=== PATIENT | female | born 1995 | race Caucasian/White ===

== ENCOUNTER 2023-07-31 19:42 | Outpatient (REF) | payer MEDICAID, SELFPAY ==
[2023-08-07 21:07] LABS: Age Gdln ACOG Testing Note (.); HPV Aptima Positive (Negative); HPV Genotype 16 Positive (Negative); HPV Genotype 18,45 Negative (Negative); IGP, Aptima HPV, rfx 16/18,45 Note (.)
== END 2023-07-31 19:43 | disposition home or self-care (01) ==
LOC: LAB 19:42
PROVIDERS: Visit Provider Obstetrics & Gynecology
DX: Z01.419 Encounter for gynecological examination (general) (routine) without abnormal findings (principal)
CPT/HCPCS: 87624; 87625; G0145

== ENCOUNTER 2024-08-05 22:20 | Outpatient (REF) | payer MEDICAID, SELFPAY ==
--- OUTSIDE RECORDS SUMMARY | 2024-08-05 22:24 | XMS_ITS | CCD ---
Author Organization [facility] Care Team Providers Care Barge Pilot Name Role Phone DR JIE BLANCO Attending Unavailable FRANCIS, DR CERON Consulting Unavailable FRANCIS, DR CERON Admitting Unavailable Pal BOATSWAIN'S MATE-TAILOR FITTER, Eh Primary Care Provider Pal BOATSWAIN'S MATE-TAILOR FITTER, Eh Primary Care Provider PAL, EH Referring Unavailable PAL, EH Primary Care Unavailable PAL, EH Referring Unavailable PAL, EH Primary Care Unavailable PAL, EH Referring Unavailable PAL, EH Primary Care Unavailable PAL, EH Attending Unavailable PAL, EH Referring Unavailable PAL, EH Primary Care Unavailable PAL, EH Attending Unavailable PAL, EH Referring Unavailable PAL, EH Primary Care Unavailable PAL, EH Attending Unavailable PAL, EH Referring Unavailable PAL, EH Primary Care Unavailable PAL, EH Attending Unavailable PAL, EH Referring Unavailable PAL, EH Primary Care Unavailable PAL, EH Attending Unavailable PAL, EH Referring Unavailable PAL, EH Primary Care Unavailable Allergies Allergy Classification Reported Allergen(s) Allergy Type Date of Onset Reaction(s) Facility (1 source) peanut allergenic extract Drug Allergy 10-07-2013 [facility] Repository Medications Current Medications Medication Drug Class(es) Dates Sig (Normalized) Sig (Original) citric acid 0.01 mg/mg / lactic acid 0.018 mg/mg / potassium bitartrate 0.004 mg/mg vaginal gel (2 sources) Calculi Dissolution Agent, Anti-coagulant Start: 06-18-2024 lactic rmgs-xguslw-mafaqbdf m (PHEXXI) 1.8-1-0.4 % gel Indications: Encounter for other contraceptive management Insert 1 Application into the vagina as needed (with intercourse). 5 g 3 06/18/2024 Active cyclobenzaprine hydrochloride 10 mg oral tablet (2 sources) Muscle Relaxant Start: 08-12-2023 take 1 tablet by mouth three times daily as needed for muscle spasms cyclobenzaprine (FLEXERIL) 10 mg tablet Take 1 tablet (10 mg total) by mouth 3 (three) times a day as needed for muscle spasms. 30 tablet 0 08/12/2023 Active HALOETTE 0.12-0.015 mg/24 hr vaginal ring (2 sources) Start: 04-05-2023 HALOETTE 0.12-0.015 mg/24 hr vaginal ring Insert 1 each into the vagina every 28 days. 0 04/05/2023 Active ibuprofen 600 mg oral tablet (4 sources) Nonsteroidal Anti-inflammatory Drug Start: 08-12-2023 take 1 tablet by mouth every six hours as needed for pain ibuprofen (MOTRIN) 600 mg tablet Take 1 tablet (600 mg total) by mouth every 6 (six) hours as needed for pain. 30 tablet 08/12/2023 Active ketotifen 0.25 mg/ml ophthalmic solution (4 sources) Histamine-1 Receptor Inhibitor Start: 05-18-2023 take 1 drop(s) into the eye(s) in the morning ALAWAY 0.025 % (0.035 %) ophthalmic solution Administer 1 drop to both eyes in the morning and 1 drop before bedtime. 05/18/2023 Active ammonium lactate 120 mg/ml topical lotion (1 source) Start: 07-31-2024 ammonium lactate (LAC-HYDRIN) 12 % lotion Apply 1 Application topically as needed for dry skin. 400 g 1 07/31/2024 Active nystatin [id number] unt/ml topical cream (1 source) Polyene Antifungal Start: 07-31-2024 End: 08-07-2024 nystatin (MYCOSTATIN) cream Apply 1 Application topically in the morning and 1 Application before bedtime. Do all this for 7 days. 60 g 1 07/31/2024 08/07/2024 Active sertraline 50 mg oral tablet (6 sources) Serotonin Reuptake Inhibitor Start: 06-12-2024 End: 07-31-2024 take 1 tablet by mouth in the morning sertraline (ZOLOFT) 50 mg tablet Indications: Persistent depressive disorder Take 1 tablet (50 mg total) by mouth in the morning. 90 tablet 1 07/31/2024 Active Start: 06-20-2023 End: 09-24-2023 take 1 tablet by mouth once daily in the morning sertraline (ZOLOFT) 50 mg tablet Indications: Persistent depressive disorder take 1 tablet by mouth every morning 30 tablet 2 09/24/2023 Active traZODone hydrochloride 50 mg oral tablet (5 sources) Serotonin Reuptake Inhibitor Start: 04-10-2024 End: 10-29-2024 take 2 tablets by mouth once daily traZODone (DESYREL) 50 mg tablet Indications: Insomnia, unspecified type Take 2 tablets (100 mg total) by mouth nightly for 90 days. 180 tablet 1 07/31/2024 10/29/2024 Active Start: 12-13-2023 take 1 tablet by patt th once daily traZODone (DESYREL) 50 mg tablet Take 1 tablet (50 mg total) by mouth nightly. 30 tablet 2 12/13/2023 Active Completed/Discontinued Medications Medication Drug Class(es) Dates Sig (Normalized) Sig (Original) fluticasone propionate 0.05 mg/actuat metered dose nasal spray (4 sources) Corticosteroid Start: 07-25-2023 End: 07-31-2024 take 2 spray(s) nasal route in the morning fluticasone propionate (FLONASE) 50 mcg/actuation nasal spray Administer 2 sprays into each nostril in the morning. 15.8 mL 07/25/2023 07/31/2024 Discontinued (Therapy completed) magnesium oxide 400 mg oral tablet (2 sources) Start: 05-01-2024 End: 07-31-2024 take 1 tablet by mouth in the morning magnesium oxide (MAGOX) 400 mg tablet Take 1 tablet (400 mg total) by mouth in the morning. 30 tablet 2 05/01/2024 07/31/2024 Discontinued (Therapy completed) triamcinolone acetonide 0.005 mg/mg topical ointment (2 sources) Corticosteroid Start: 05-01-2024 End: 07-31-2024 triamcinolone (KENALOG) 0.5 % ointment Apply 1 Application topically in the morning and 1 Application before bedtime. 30 g 1 05/01/2024 07/31/2024 Discontinued (Therapy completed) Problems Active Problems Problem Classification Problem Date Documented Date Episodic/Chronic Anxiety disorders (5 sources) Anxiety; Translations: [Anxiety disorder, unspecified] Onset: 06-20-2023 06-20-2023 Chronic Immunizations and screening for infectious disease (1 source) Encounter for screening for human papillomavirus (HPV); Translations: [ENC SCREENING HUMAN PAPILLOMAVIRUS] Onset: 04-12-2022 Episodic Malaise and fatigue (1 source) Other fatigue; Translations: [Other fatigue] Onset: 04-22-2024 Episodic Mood disorders (8 sources) Dysthymic disorder; Translations: [Dysthymic disorder] Onset: 06-20-2023 09-24-2023 Chronic Mycoses (1 source) Candidiasis of skin; Translations: [Candidiasis of skin and nail] 07-31-2024 Episodic Other non-traumatic joint disorders (1 source) Pain in unspecified joint; Translations: [Pain in unspecified joint] Onset: 04-22-2024 Episodic Other nutritional; endocrine; and metabolic disorders (2 sources) Body mass index (BMI) 33.0-33.9, adult; Translations: [Body mass index (BMI) 33.0-33.9, adult] Onset: 01-24-2024 Chronic Other nutritional; endocrine; and metabolic disorders (1 source) Obesity Onset: 01-24-2024 Chronic Other skin disorders (1 source) Other skin changes; Translations: [Other skin changes] Onset: 04-22-2024 Episodic Other skin disorders (1 source) Xeroderma; Translations: [Xerosis cutis] 07-31-2024 Episodic Residual codes; unclassified (1 source) Insomnia; Translations: [Insomnia, unspecified] 07-31-2024 Episodic Residual codes; unclassified (1 source) Insomnia, unspecified; Translations: [Insomnia, unspecified] Onset: 07-31-2024 Episodic Unclassified (1 source) Results Onset: 02-12-2024 Past or Other Problems Problem Classification Problem Date Documented Date Episodic/Chronic Contraceptive and procreative management (1 source) Encounter for initial prescription of contraceptives, unspecified; Translations: [Encounter for initial prescription of contraceptives, unspecified] Onset: 05-01-2024 Episodic Mood disorders (4 sources) Mood disorders Onset: 06-20-2023 Resolved: 05-01-2024 06-20-2023 Other aftercare (1 source) Other longterm (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 therapy; 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] Onset: 01-24-2024 Episodic Other nutritional; endocrine; and metabolic disorders (2 sources) Abnormal weight gain; Translations: [Abnormal weight gain] Onset: 01-24-2024 Episodic Other screening for suspected conditions (not mental disorders or infectious disease) (8 sources) Encounter for screening for malignant neoplasm of cervix; Translations: [Encounter for screening for lipoid disorders] Onset: 04-11-2022 Episodic Residual codes; unclassified (2 sources) Family history of diabetes mellitus; Translations: [Family history of diabetes mellitus] Onset: 01-24-2024 Episodic Residual codes; unclassified (2 sources) Family history of other diseases of the musculoskeletal system and connective tissue; Translations: [Family history of other diseases of the musculoskeletal system and connective tissue] Onset: 04-22-2024 Episodic Unclassified (1 source) Persistent depressive disorder 07-31-2024 Results Test Name Value Interpretation Reference Range Facil ity CRP [Mass/Vol]on 05-23-2024 C REACTIVE PROTEIN 0.4 mg/dL Normal 0.000-0.744 [facility] Comment on above: Performed By: #### 1 988-5 #### [facility] ([id number]) [address] [place] [address] CBC AND AUTO DIFFon 04-22-20 ABSOLUTE BASOPHIL 0.1 X10E9/L Normal 0.0-0.2 [facility] Comment on above: Performed By: #### C JANIE, 29817-7, 1988-01, 94622-4 #### [facility] ([id number]) [address] [place] [address] ABSOLUTE NEUTROPHIL 3.8 X10E9/L Normal 1.5-6.6 [facility] Comment on above: Performed By: #### C JANIE, 61311-1, 1990-01, #### [facility] ([id number]) [address], [address] [place] [address] Basophils/100 WBC (Bld) 0.7 % Normal [facility] Comment on above: Performed By: #### Rajesh LIMA, 77657-6, 1990-01, #### [facility] ([id number]) [address], [facility] [address] [facility] [address] [place] [address] Eosinophils (Bld) [#/Vol] 0.3 10*3/uL Normal 0.0-0.4 [facility] Comment on above: Performed By: #### Rajesh LIMA, , 1990-01, #### [facility] ([id number]) [address], [facility] [address] [place] [address] Eosinophils/100 WBC (Bld) 4.1 % Normal [facility] Comment on above: Performed By: #### Rajesh LIMA, , 1990-01, #### [facility] ([id number]) [address], [facility] [address] [place] [address] Erythrocyte distribution width (RBC) [Ratio] 13.2 % Normal 11.5-15.0 [facility] Comment on above: Performed By: #### Rajesh LIMA, , 1990-01, #### [facility] ([id number]) [address], [facility] [address] [place] [address] Hematocrit (Bld) [Volume fraction] 39.5 % Normal 35-47 [facility] Comment on above: Performed By: #### Rajesh LIMA, , 1990-01, #### [facility] ([id number]) [address], [facility] [address] [place] [address] Hemoglobin (Bld) [Mass/Vol] 13.6 g/dL Normal 11.7-15.5 [facility] Comment on above: Performed By: #### Rajesh LIMA, 78700-7, 1990-01, 17488-5 #### [facility] ([id number]) [address], [address] [place] [address] Lymphocytes (Bld) [#/Vol] 2.6 10*3/uL Normal 1.0-3.5 [facility] Comment on above: Performed By: #### Rajesh LIMA, 21813-7, 1990-01, #### [facility] ([id number]) [address], [facility] [address] [place] [address] Lymphocytes/100 WBC (Bld) 37.5 % Normal [facility] Comment on above: Performed By: #### Rajesh LIMA, 13572-7, 1988-01, #### [facility] ([id number]) [address], [address] [place] [address] MCH (RBC) [Entitic mass] 29.2 pg Normal 27-34 [facility] Comment on above: Performed By: #### Rajesh LIMA, 40351-9, 1988-01, #### [facility] ([id number]) [address], [address] [place] [address] MCHC (RBC) [Mass/Vol] 34.3 g/dL Normal 32-36 [facility] Comment on above: Performed By: #### Rajesh LIMA, 57529-8, 1988-01, #### [facility] ([id number]) [address], [facility] [address] [place] [address] MCV (RBC) [Entitic vol] 85 fL Normal 80-100 [facility] Comment on above: Performed By: #### Rajesh LIMA, 03878-2, 1988-01, #### [facility] ([id number]) [address], [address] [place] [address] Monocytes (Bld) [#/Vol] 0.3 10*3/uL Normal 0-0.9 [facility] Comment on above: Performed By: #### Rajesh LIMA, 34189-0, 1988-01, #### [facility] ([id number]) [address], [facility] [address] [place] [address] Monocytes/100 WBC (Bld) 3.9 % Normal [facility] Comment on above: Performed By: #### Rajesh LIMA, 07084-8, 1988-01, #### [facility] ([id number]) [address], [facility] [address] [place] [address] Neutrophils/100 WBC (Bld) 53.8 % Normal [facility] Comment on above: Performed By: #### Rajesh LIMA, , 1990-01, #### [facility] ([id number]) [address], [facility] [address] [place] [address] Platelet mean volume (Bld) [Entitic vol] 8.5 fL Normal 7-12 [facility] Comment on above: Performed By: #### Rajesh LIMA, 31443-5, 1988-01, #### [facility] ([id number]) [address], [facility] [address] [place] [address] Platelets (Bld) [#/Vol] 284 10*3/uL Normal 150-450 [facility] Comment on above: Performed By: #### Rajesh LIMA, 98474-9, 1988-01, #### [facility] ([id number]) [address], [facility] [address] [place] [address] RBC COUNT 4.65 X10E12/L Normal 3.80-5.20 [facility] Comment on above: Performed By: #### Rajesh LIMA, 46525-7, 1988-01, #### [facility] ([id number]) [address], [address] [place] [address] WBC (Bld) [#/Vol] 7.0 10*3/uL Normal 4.0-11.0 [facility] Comment on above: Performed By: #### Rajesh LIMA, 77624-5, 1988-01, 60511-8 #### [facility] ([id number]) [address], [address] [place] [address] CRP [Mass/Vol]on 04-22-2024 C REACTIVE PROTEIN 2.8 mg/dL High 0.000-0.744 [facility] Comment on above: Performed By: #### Rajesh LIMA, 05077-5, 1988-01, 67966-6 #### [facility] ([id number]) [address], [facility] [address] [place] [address] ESR Photometric method (Bld) [Velocity]on 04-22-2024 ESR, ERYTHROCYTE SEDIMENTATION RATE 9 mm/h Normal 0-20 [facility] Comment on above: Performed By: #### Rajesh LIMA, 19116-9, 1988-01, 67815-8 #### [facility] ([id number]) [address] [address] Nuclear Ab IA Ql (S)on 04-22 RANJIT Screen w/reflex Negative Normal NEG [facility] Comment on above: Result Comment: Testing performed using multiplex flow immunoassay. Eleven different antigens associated with systemic autoimmune diseases (dsDNA,Sm,Sm/FENCE INSTALLER FOREMAN,FENCE INSTALLER FOREMAN,Chromatin, SSA,SSB,Stephanie-1,Scl70,Ribo P,Centromere B) are included in this screening test. Performed By: #### Rajesh LIMA, 77139-1, 1988-01, 10333-5 #### [facility] ([id number]) [address], [address] [place] [address] HGB A1C (GLYCO-HGB)on 2023 Glucose [Mass/Vol] 94 mg/dL Normal [facility] Comment on above: Performed By: #### H A1C, 06839-2, TSHR #### [facility] ([id number]) [address], [address] [address] HbA1c (Bld) [Mass fraction] 4.9 % Normal 4.4-5.6 [facility] Comment on above: Result Comment: NOTE ADA Guidelines Result HgbA1c Normal : less than 5.7 % Prediabetes : 5.7 % to 6.4 % Diabetes : > 6.4 % Use with caution in patients with abnormal hemoglobin variants as the half-life of red blood cells and in vivo glycation rates are affected. Performed By: #### Michael A1C, 76857-0, TSHR #### [facility] ([id number]) [address] [facility] [address] [place] [address] Lipid 1996 panelon 4 Cholesterol [Mass/Vol] 141 mg/dL Low 150-200 [facility] Comment on above: Performed By: #### Michael A1C, 95618-1, TSHR #### [facility] ([id number]) [address], [facility] [address] [place] [address] Cholesterol in HDL [Mass/Vol] 57 mg/dL Normal >39 [facility] Comment on above: Result Comment: HDL <40 mg/dL - High Risk HDL > or = 40mg/dL- Desirable HDL >60 mg/dL - Negative Risk Performed By: #### H A1C, 37402-4, TSHR #### [facility] ([id number]) [address], [address] [place] [address] Cholesterol in LDL [Mass/Vol] 60 mg/dL Normal <130 [facility] Comment on above: Result Comment: LDL <100 mg/dL - Desirable LDL >160 mg/dL - High Risk Performed By: #### H A1C, 36074-6, TSHR #### [facility] ([id number]) [address], [address] [address] Cholesterol in VLDL [Mass/Vol] 24 mg/dL Normal 0-30 [facility] Comment on above: Performed By: #### H A1C, 80417-8, TSHR #### [facility] ([id number]) [address], [facility] [address] [place] [address] CHOLESTEROL:HDL 2.5 Normal 1.0-5.0 [facility] Comment on above: Performed By: #### H A1C, 65466-6, TSHR #### [facility] ([id number]) [address], [address] [address] Triglyceride [Mass/Vol] 122 mg/dL Normal 27-150 [facility] Comment on above: Performed By: #### H A1C, 92452-1, TSHR #### [facility] ([id number]) [address], [address] [address] TSH WITH REFLEXon 01-24-2024 TSH 1.20 uIU/mL Normal 0.49-4.67 [facility] Comment on above: Performed By: #### H A1C, 59385-9, TSHR #### [facility] ([id number]) [address] [place] [address] PAP ACOG PANEL 2: 21 to 29on 04-14-2022 . . Normal [facility] Comment on above: Performed By: #### 4 [id number] #### [facility] [address] [place] [address] Dr. Vish Mohr Age Gdln ACOG Testing 21-29 Normal [facility] Comment on above: Performed By: #### 4 [id number] #### [facility] [address] [place] [address] Dr. Vish Mohr DIAGNOSIS: Comment Normal [facility] Comment on above: Result Comment: NEGA TIVE FOR INTRAEPITHELIAL LESION OR MALIGNANCY. Performed By: #### 4 [id number] #### [facility] [address] [place] [address] Dr. Vish Mohr Methodology: Comment Normal [facility] Comment on above: Result Comment: This liquid based ThinPrep(R) pap test was screened with the use of an image guided system. Performed By: #### 4 [id number] #### [facility] [address] [place] [address] Dr. Vish Mohr Note: Comment [facility] Comment on above: Result Comment: The Pap smear is a screening test designed to aid in the detection of premalignant and malignant conditions of the uterine cervix. It is not a diagnostic procedure and should not be used as the sole means of detecting cervical cancer. Both false-positive and false-negative reports do occur. . Performed By: #### 4 [id number] #### [facility] [address] [place] [address] Dr. Vish Mohr Performed by: Comment Normal [facility] Comment on above: Result Comment: Valentin Negron, Machine Tool Mechanic (ASCP) Performed By: #### 4 [id number] #### [facility] [address] [place] [address] Dr. Vish Mohr Reflex Criteria: Comment Normal [facility] Comment on above: Result Comment: The HPV DNA reflex criteria were not met with this specimen result therefore, no HPV testing was performed. . Performed By: #### 4 [id number] #### [facility] [address] [place] [address] Dr. Vish Mohr Specimen adequacy: Comment Normal [facility] Comment on above: Result Comment: Sati sfactory for evaluation. Endocervical and/or squamous metaplastic cells (endocervical component) are present. Performed By: #### 4 [id number] #### [facility] [address] [place] [address] Dr. Vish Mohr Vital Signs Date Time Vital Sign Value Performing Clinician Nancie kern 07-31-2024 10:37-0500 Body mass index (BMI) [Ratio] 35 kg/m2 Eh Lanejas [employer]ATSWAIN'S MATE-TAILOR FITTER Work Phone: [facility] 07-31-2024 10:37-0500 Body temperature 97.9 [degF] Eh Pal [employer]ATSWAIN'S MATE-TAILOR FITTER Work Phone: [facility] 07-31-2024 10:37-0500 Body weight 73.39 kg Ehjuan carlos Pal [employer]WA[employer] MATE-TAILOR FITTER Work Phone: [facility] 07-31-2024 10:37-0500 Diastolic blood pressure 64 mm[Hg] Eh Pal [employer]WAIN[employer] MATE-TAILOR FITTER Work Phone: [facility] 07-31-2024 10:37-0500 Heart rate 75 /min Eh Pal [employer]WAIN[employer] MATE-TAILOR FITTER Work Phone: [facility] 07-31-2024 10:37-0500 SaO2% (BldA) [Mass fraction] 97 % Eh Pal [employer]WAIN[employer]S MATE-TAILOR FITTER Work Phone: [facility] 07-31-2024 10:37-0500 Systolic blood pressure 116 mm[Hg] Eh Pal [employer]ATSWAIN[employer] MATE-TAILOR FITTER Work Phone: [facility] Encounters Encounter Date Encounter Type Care Provider Facility Start: 07-31-2024 End: 07-31-2024 Office outpatient visit 15 minutes Eh Pal BOATSWAIN'[employer] MATE-TAILOR FITTER Work Phone: [facility] Comment on above: Insomnia, unspecifie d type (Primary Dx); Persistent depressive disorder; Dry skin; Skin candidiasis Start: 07-31-2024 End: 07-31-2024 ambulatory [facility] Start: 07-25-2024 End: 07-27-2024 Refill Eh Pal [employer]WAIN[employer] MATE-TAILOR FITTER Work Phone: [facility] Start: 05-23-2024 End: 05-23-[address] [facility] Start: 05-01-2024 End: 05-01-2024 ambulatory [facility] Start: 04-22-2024 End: 04-22-[address] [facility] Start: 04-07-2024 End: 04-07-2024 ambulatory [facility] Start: 02-12-2024 End: 02-12-2024 ambulatory [facility] Start: 01-24-2024 End: 01-25-2024 ambulatory [facility] Start: 01-24-2024 End: 01-24-2024 ambulatory [facility] Start: 12-13-2023 Orders Only Eh elizabeth [employer]WA[employer] MATE-TAILOR FITTER Work Phone: [facility] Start: 09-24-2023 Refill Eh elizabeth [employer]WA[employer] MATE-TAILOR FITTER Work Phone: [facility] Comment on above: Persistent depressiv e disorder Start: 04-11-2022 End: 04-11-[address] JIE BLANCO Facility: Procedures Date Procedure Procedure Detail Performing Clinician Start: 05-01-2024 Adult depression scr eening assessment Eh Pal [employer]ATE-TAILOR [employer]TER Work Phone: Start: 01-24-2024 Follow-up visit Follow-up NESTOR PAL Start: 07-31-2023 Microscopic observat ion [Identifier] in Cervix by Cyto stain Eh Pal [employer]WA[employer] MATE-TAILOR [employer]TER Work Phone: Start: 06-20-2023 Adult depression scr eening assessment Eh Pal [employer] MATE-TAILOR FITTER Work Phone: Plan of Treatment Date Care Activity Detail Author Start: 01-01-2029 DTaP,Tdap and Td Vaccines (2 - Td or Tdap) DTaP,Tdap and Td Vaccines (2 - Td or Tdap) [facility] Start: 07-31-2026 Screening for malign ant neoplasm of cervix Pap Smear [facility] Start: 07-31-2025 Adult BMI Screening Adult BMI Screen ing [facility] Start: 07-31-2025 Tobacco Screening Tobacco Screening [facility] Start: 05-10-2025 Tobacco Screening Tobacco Screening [facility] Start: 05-01-2025 Adult BMI Screening Adult BMI Screen ing [facility] Start: 05-01-2025 Depression Screening Depression Scre ening [facility] Start: 10-09-2024 End: 10-09-2024 Patient encounter procedure [facility] Start: 08-12-2024 Adult BMI Screening Adult BMI Screen ing [facility] Start: 08-12-2024 Tobacco Screening Tobacco Screening [facility] Start: 07-31-2024 End: 07-31-2024 Patient encounter procedure 07/31/2024 10:40 AM EST Office Visit [facility] [address] [place] [id number] Eh Pal APRN-SHERRON [address] [place] [id number] [facility] Start: 06-20-2024 Depression Screening Depression Scre ening [facility] Start: 05-25-2024 Influenza vaccination Influenza Vacc ine [facility] Start: 01-24-2024 End: 01-24-2024 Patient encounter procedure [facility] Start: 05-25-2023 Influenza vaccination Influenza Vacc [facility] Start: 2014 Screening for malign ant neoplasm of cervix Pap Smear [facility] Start: 2011 Adult BMI Follow Up Plan Adult BMI Follow Up Plan [facility] Immunizations Immunization Date Immunization Notes Care Provider Fa cilimaria isabel 01-01-2019 tetanus toxoid, redu ernesto diphtheria toxoid, and acellular pertussis vaccine, adsorbed Eh Pal [employer] Work Phone: [facility] Payers Date Payer Category Payer Medicaid [id number] 2022 Medicaid [id number] 1993 Unknown [id number] 2.16.84 [id number] 1993 Unknown [id number] 2.16.8 [id number] 1993 Unknown [id number] 2.16.8 [id number] 1993 Unknown [id number] 2.16.8 [id number] 1993 Unknown [id number] 2.16.8 [id number] 1993 Unknown [id number] 2.16.8 [id number] 1993 Unknown [id number] 2.16.8 [id number] 1993 Unknown [id number] 2.16.8 [id number] 1993 Unknown [id number] 2.16.8 [id number] 1959 Unknown [id number] Social History Date Type Detail Facility Start: 06-20-2023 Tobacco smoking stat [facility] Never smoked tobacco [facility] Start: 06-20-2023 Tobacco use and exposure Smokeless tobacco non-user [facility] Start: 08-12-2023 End: 07-31-2024 Alcohol intake Current non-drinker of alcohol (finding) [facility] Start: 11-04-2020 End: 08-12-2023 History of Social function [facility] Start: 11-04-2020 End: 08-12-2023 Tobacco use panel [facility] Adolescent depressio n screening assessment 16 [facility] Start: 1995 Sex Assigned At Not on file [facility] Start: 04-29-2015 Sex Female (finding) [facility] History of Present illness Narrative 07-31-2024 Eh Pal, [employer] - 07/31/2024 10:40 AM EST Note Date & Type Note Facility 07-31-2024 History of Present illness Narrative Subjective Patient ID: Rani Noe is a 29 y.o. female. HPI Rani presents to the office for follow up on anxiety and sleep. She is on 100 mg Trazodone for sleep. States the regimen is really helping her to sleep. She does not have any difficulties falling back to sleep when she wakes up. Also, her anxiety and depression is controlled. States she is doing well on Zoloft. She denies any current suicidal ideation and any current symptoms of depression. She was having headaches at last visit, but reports she is no longer having them, she does not need refill on magnesium. Additionally, she has some concerns with skin dryness and itchiness of the palmar surfaces of both hands and feet. She also reports having dark spots the on the right leg and foot. States she tried over the counter felicity lotion and scrub and that has brought some relief. However she continues to have the itchiness. Dryness is improving. Also mentioned that she felt dizzy last Sunday while standing and while exerting herself over the weekend. She reports she got occasional palpitations with exertion. She denies any chest pain, headaches, or shortness of breath. She admits that her dog and she has not been drinking as much. The following portions of the patient's history were reviewed and updated as appropriate: allergies, current medications, past medical history, past social history, past surgical history, problem list, and medication reconciliation was completed including current medication and post discharge medication. Review of Systems Constitutional: Negative for activity change and appetite change. Eyes: Negative. Respiratory: Negative. Negative for shortness of breath and wheezing. Cardiovascular: Positive for palpitations. Negative for chest pain and leg swelling. Endocrine: Negative. Skin: Dry and itchy skin Neurological: Positive for dizziness. Negative for light-headedness and headaches. Psychiatric/Behavioral: Negative. Objective Physical Exam Constitutional: Appearance: Normal appearance. HENT: Right Ear: External ear normal. Left Ear: External ear normal. Eyes: Conjunctiva/sclera: Conjunctivae normal. Cardiovascular: Rate and Rhythm: Normal rate and regular rhythm. Pulses: Normal pulses. Pulmonary: Effort: Pulmonary effort is normal. Musculoskeletal: General: Normal range of motion. Cervical back: Normal range of motion. Skin: Findings: Rash present. Comments: Dry skin to bilateral palmar hands. Dry skin and redness to bilateral feet. Redness to top of right foot. 2 areas of darkened skin to right lower anterior leg. Neurological: Mental Status: She is alert and oriented to person, place, and time. Psychiatric: Mood and Affect: Mood normal. Behavior: Behavior normal. Assessment/Plan Rani was seen here for sleep/ headaches. She is no longer having headache. Her sleep is better with current regimen of trazodone 100 mg. She is also on Zoloft for depression and is well controlled. Additionally, she has issues with itchiness, dryness and dark spots on the right leg. Mentioned she felt dizzy and had palpitations over the weekend Continue to monitor for symptoms of dizziness and palpitations and call the office if symptoms persist Keep hydrated all the times Refilled trazodone 50 mg; take 2 tablets by mouth nightly for 90 days Refilled Zoloft 50 mg; take 1 tablet by mouth in the morning Ammonium lactate 12% lotion; apply 1 application topically needed for dry skin. Also sent in nystatin for possible fungal skin infection to feet. Follow up in this office as needed. Ensure to keep skin clean and dry. Rani was seen today for follow-up. Diagnoses and all orders for this visit: Insomnia, unspecified type - traZODone (DESYREL) 50 mg tablet; Take 2 tablets (100 mg total) by mouth nightly for 90 days. Persistent depressive disorder - sertraline (ZOLOFT) 50 mg tablet; Take 1 tablet (50 mg total) by mouth in the morning. Dry skin Skin candidiasis Other orders - ammonium lactate (LAC-HYDRIN) 12 % lotion; Apply 1 Application topically as needed for dry skin. - nystatin (MYCOSTATIN) cream; Apply 1 Application topically in the morning and 1 Application before bedtime. Do all this for 7 days. Eh Pal APRN-TAILOR [employer]TER 07/31/24 [id number] documented in this encounter [facility] Evaluation note Note Date & Type Note Facility Evaluation note Diagnosis Persistent depressive disorder documented in this encounter [facility] Evaluation note Note Date & Type Note Facility Evaluation note Diagnosis Insomnia, unspecified type- Primary Persistent depressive disorder Dry skin Other symptoms involving skin and integumentary tissues Skin candidiasis Candidiasis of skin and nails documented in this encounter [facility] Instructions Note Date & Type Note Facility Instructions Not on filedocumented in this en counter [facility] Instructions Note Date & Type Note Facility Instructions Not on filedocumented in this en counter [facility] Instructions Note Date & Type Note Facility Instructions Not on filedocumented in this en counter [facility] Instructions Note Date & Type Note Facility Instructions Not on filedocumented in this en counter [facility] Summary Purpose Family History No Family History Records FoundNo Family History Records FoundNo Family History Records FoundNo Family History Records Found Advance Directives No Advanced Directives Records FoundNo Advanced Directives Records FoundNo Advanced Directives Records FoundNo Advanced Directives Records Found Additional Source Comments INFORMATION SOURCE (unrecogn ized section and content) DATE CREATED AUTHOR 04/14/2022 [facility] DATE CREATED AUTHOR AUTHOR'S ORGANIZ ATION 01/26/2024 [facility] DATE CREATED AUTHOR AUTHOR'S ORGANIZ ATION 05/24/2024 [facility] DATE CREATED AUTHOR AUTHOR'S ORGANIZ ATION 08/02/2024 [facility] Reason for Visit (unrecogniz ed section and content) Reason Comments Med Refill Reason Comments Follow-up Headaches and sleep Care Teams (unrecognized sec tion and content) [employer] Relationship Specialty Start Date End Date Eh Pal APRN-CNP [address] [place] [address] PCP - General Nurse Practitioner 06/20/23 [employer] Relationship Specialty Start Date End Date Eh Pal APRN-CNP PCP - General Nurse Practitioner 06/20/23 [employer] Relationship Specialty Start Date End Date Eh Pal APRN-SHERRON PCP - General Nurse Practitioner 06/20/23 [employer] Relationship Specialty Start Date End Date Eh Pal APRNJAMIE PCP - General Nurse Practitioner 06/20/23 FOR RECORDS PERTAINING TO PATIENTS WHO ARE OR HAVE BEEN ENROLLED IN A CHEMICAL DEPENDENCY/SUBSTANCEABUSE PROGRAM, SOME INFORMATION MAY BE OMITTED. This clinical summary was aggregated from multiple sources. Caution should be exercised in using it in the provision of clinical care. This summary normalizes information from multiple sources, and as a consequence, information in this document may materially change the coding, format and clinical context of patient data. In addition, data may be omitted in some cases. CLINICAL DECISIONS SHOULD BE BASED ON THE PRIMARY CLINICAL RECORDS. [facility]. provides no warranty or guarantee of the accuracy or completeness of information in this document.
== END 2024-08-05 22:21 | disposition home or self-care (01) ==
LOC: LAB 22:20
PROVIDERS: Visit Provider Obstetrics & Gynecology
DX: Z01.419 Encounter for gynecological examination (general) (routine) without abnormal findings (principal)
CPT/HCPCS: 87624; 88175

== ENCOUNTER 2024-09-11 08:04 | Outpatient (REF) | payer MEDICAID, SELFPAY ==
--- OUTSIDE RECORDS SUMMARY | 2024-09-18 08:10 | XMS_ITS | CCD ---
Author Organization [facility] Care Team Providers Care Clerk Secretary Name Role Phone DR JIE BATRES Attending Unavailable GISEL, DR CERON Consulting Unavailable GISEL, DR CERON Admitting Unavailable Waterman RADIAL ROUTER OPERATOR-BALE OPENER, Eh Primary Care Provider Waterman RADIAL ROUTER OPERATOR-BALE OPENER, Eh Primary Care Provider WATERMAN, EH Referring Unavailable WATERMAN, EH Primary Care Unavailable WATERMAN, EH Referring Unavailable WATERMAN, EH Primary Care Unavailable WATERMAN, EH Referring Unavailable WATERMAN, EH Primary Care Unavailable WATERMAN, EH Attending Unavailable WATERMAN, EH Referring Unavailable WATERMAN, EH Primary Care Unavailable WATERMAN, EH Attending Unavailable WATERMAN, EH Referring Unavailable WATERMAN, EH Primary Care Unavailable WATERMAN, EH Attending Unavailable WATERMAN, EH Referring Unavailable WATERMAN, EH Primary Care Unavailable WATERMAN, EH Attending Unavailable WATERMAN, EH Referring Unavailable WATERMAN, EH Primary Care Unavailable WATERMAN, EH Attending Unavailable WATERMAN, EH Referring Unavailable WATERMAN, EH Primary Care Unavailable Waterman Eh AMOR Primary Care Provider JIE BATRES Attending Unavailable JIE BATRES Attending Unavailable Allergies Allergy Classification Reported Allergen(s) Allergy Type Date of Onset Reaction(s) Facility (1 source) peanut allergenic extract Drug Allergy 10-07-2013 [facility] Medications Current Medications Medication Drug Class(es) Dates Sig (Normalized) Sig (Original) citric acid 0.01 mg/mg / lactic acid 0.018 mg/mg / potassium bitartrate 0.004 mg/mg vaginal gel (3 sources) Calculi Dissolution Agent, Anti-coagulant Start: 06-18-2024 lactic kujh-tzvmhf-nstxnvsr m (PHEXXI) 1.8-1-0.4 % gel Indications: Encounter [...] 04/05/2023 Active ibuprofen 600 mg oral tablet (5 sources) Nonsteroidal Anti-inflammatory Drug Start: 08-12-2023 take 1 tablet by mouth every six hours as needed for pain ibuprofen (MOTRIN) 600 mg tablet Take 1 tablet (600 mg total) by mouth every 6 (six) hours as needed for pain. 30 tablet 08/12/2023 Active ketotifen 0.25 mg/ml ophthalmic solution (5 sources) Histamine-1 Receptor Inhibitor Start: 05-18-2023 take 1 drop(s) into the eye(s) in the morning ALAWAY 0.025 % (0.035 %) ophthalmic solution Administer 1 drop to both eyes in the morning and 1 drop before bedtime. 05/18/2023 Active ammonium lactate 120 mg/ml topical lotion (2 sources) Start: 07-31-2024 ammonium lactate (LAC-HYDRIN) 12 % lotion Apply 1 Application topically as needed for dry skin. 400 g 1 07/31/2024 Active nystatin 100 unt/mg topical powder (5 sources) Polyene Antifungal Start: 08-05-2024 End: 08-05-2025 nystatin (Mycostatin) 373435 UNIT/GM powder Indications: Skin yeast infection Apply topically 3 (three) times a day 15 g 08/05/2024 08/05/2025 Active Start: 07-31-2024 End: 08-07-2024 nystatin (MYCOSTATIN) cream Apply 1 Application topically in the morning and 1 Application before bedtime. Do all this for 7 days. 60 g 1 07/31/2024 08/07/2024 Active sertraline 50 mg oral tablet (13 sources) Serotonin Reuptake Inhibitor Start: 09-02-2024 take 1 tablet by mouth once daily in the morning sertraline (ZOLOFT) 50 mg tablet Indications: Persistent depressive disorder TAKE 1 TABLET BY MOUTH EVERY MORNING 30 tablet 5 09/02/2024 Active Start: 06-20-2023 End: 09-02-2024 take 1 tablet by mouth in the morning sertraline (Zoloft) 50 MG tablet Take 50 mg by mouth in the morning. 06/20/2023 Active traZODone hydrochloride 50 mg oral tablet (7 sources) Serotonin Reuptake Inhibitor Start: 04-10-2024 End: 10-29-2024 take 2 tablets by mouth at bedtime traZODone (Desyrel) 50 MG tablet Take 100 mg by mouth at bedtime 08/27/2024 Active Start: 12-13-2023 take 1 tablet by patt th once daily traZODone (DESYREL) 50 mg tablet Take 1 tablet (50 mg total) by mouth nightly. 30 tablet 2 12/13/2023 Active Completed/Discontinued Medications Medication Drug Class(es) Dates Sig (Normalized) Sig (Original) etonogestrel-ethinyl estradiol (EnilloRing) 0.12-0.015 MG/24HR vaginal ring (3 sources) Start: 03-24-2024 End: 08-05-2024 etonogestrel-ethiny l estradiol (EnilloRing) 0.12-0.015 MG/24HR vaginal ring Indications: control counseling insert 1 ring vaginally for 3 weeks REMOVE for 1 week and repeat 1 each 3 03/24/2024 08/05/2024 Discontinued fluticasone propionate 0.05 mg/actuat metered dose nasal [...] Problem Date Documented Date Episodic/Chronic Anxiety disorders (6 sources) Anxiety; Translations: [Anxiety disorder, unspecified] Onset: 06-20-2023 06-20-2023 Chronic Cancer of cervix (1 source) Cervical intraepithelial neoplasia grade 1; Translations: [Low grade squamous intraepithelial lesion on cytologic smear of cervix (LGSIL)] 09-11-2024 Episodic Immunizations and screening for infectious disease (1 source) Encounter for screening for human papillomavirus (HPV); Translations: [ENC SCREENING HUMAN PAPILLOMAVIRUS] Onset: 04-12-2022 Episodic Malaise and fatigue (1 source) Other fatigue; Translations: [Other fatigue] Onset: 04-22-2024 Episodic Mood disorders (10 sources) Dysthymic disorder; Translations: [Dysthymic disorder] Onset: 06-20-2023 09-24-2023 Chronic Mycoses (3 sources) Candidiasis of skin; Translations: [Candidiasis of skin [...] contraceptives, unspecified] Onset: 05-01-2024 Episodic Mood disorders (5 sources) Mood disorders Onset: 06-20-2023 Resolved: 05-01-2024 06-20-2023 Other aftercare (1 source) Other 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 worker (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 therapy; Translations: [Other terminal worker (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 therapy] Onset: 01-24-2024 Episodic Other [...] and connective tissue] Onset: 04-22-2024 Episodic Unclassified (2 sources) Persistent depressive disorder 07-31-2024 Results Test Name Value Interpretation Reference Range Facility Colposcopyon 09-11-2024 Мария Carrera LPN 09/14/2024 11:37 AM Colposcopy Date/Time: 09/11/2024 3:39 PM Performed by: Jie Batres DO Authorized by: Jie Batres DO Procedure location: cervix Consent: Patient questions answered: yes Risks and benefits of the procedure and its alternatives discussed: yes Consent obtained: Written Consent given by: Patient Indication: Cervical indication(s): high-risk HPV positive and cervical LSIL Pre-procedure: Speculum was placed in the vagina: yes Prep solution(s): acetic acid Procedure: Colposcopy with: colposcopy only and endocervical curettage Cervix visibility: fully visualized Cervical impression: normal/benign Ferric subsulfate solution applied: no Tampon inserted: no Post-procedure: Patient tolerance of procedure: Patient tolerated the procedure well with no immediate complications Instructions and paperwork completed: yes Educational handouts given: yes [facility] ColposcopyOrdered By: Мария Carrera on 09-11-2024 [facility] HCG ( test) Ql (U)o n 09-11-2024 Interpretation and review of laboratory results Abnormal [facility] Preg Test, Ur Negative Negative [facility] IGP,APTIMA HPV,AGE GDLNon AGE GDLN ACOG TESTING Note . [facility] Comment on above: TESTS RESULT FLAG UN ITS REF RANGE LAB Clinician Provided Cytology Information Source.............Cervix;Endocervix No. of containers..01 ThinPrep Vial Age Algo ACOG Sarah... 30-65 01 FLAG LEGEND: L-Low Normal,H-High Normal,LL-Alert Low,HH-Alert High <-Panic Low,>-Panic High,A-Abnormal,AA-Critical Abnormal Performed at: 01 =G [address] [address] Dulce Pham MD, HPV APTIMA Positive Abnormal Negative [facility] Comment on above: This nucleic acid am plification test detects fourteen high- risk HPV types (16,18,31,33,35,39,45,51,52,56,58,59,66,68) without differentiation. Performed at: = - [facility] [id number] Box Cutter: Dulce Pham MD, Phone: [phone] Performed at: [facility] [address] [place], [place] [id number] Box Cutter: Alfred Carlson MD, Phone: [phone] IGP, APTIMA HPV, RFX 16/18,45 Note Abnormal . [facility] Comment on above: TESTS RESULT FLAG UN ITS REF RANGE LAB DIAGNOSIS: [A] 02 EPITHELIAL CELL ABNORMALITY. LOW GRADE SQUAMOUS INTRAEPITHELIAL LESION (LSIL). Recommendation: [A] 02 Suggest follow up as clinically appropriate. Specimen adequacy: 02 Satisfactory for evaluation. Endocervical and/or squamous metaplastic cells (endocervical component) are present. Performed by: 02 Ivette Trujillo, Clinical Assistant (ASCP) Electronically si... 02 Rosalba Fuller MD, Pathologist . 02 Pathologist ICD10: 02 R87.612 Note: Note 03 The Pap smear is a screening test designed to aid in the detection of premalignant and malignant conditions of the uterine cervix. It is not a diagnostic procedure and should not be used as the sole means of detecting cervical cancer. Both false-positive and false-negative reports do occur. Test Methodology: Note 03 This liquid based ThinPrep(R) pap test was screened with the use of an image guided system. HPV Genotype Reflex Note 02 Criteria not met, HPV Genotype not performed. FLAG LEGEND: L-Low Normal,H-High Normal,LL-Alert Low,HH-Alert High <-Panic Low,>-Panic High,A-Abnormal,AA-Critical Abnormal Performed at: 02 [facility] [id number] [place] [id number] Alfred Carlson MD, 03 WB [facility] [address] [address] Dulce Pham MD, Interpretation and review of laboratory results Abnormal [facility] BRUSH-SPATULA CERVIX ENDOCERVIX [facility] CRP [Mass/Vol]on 05-23-2024 C REACTIVE PROTEIN 0.4 mg/dL Normal 0.000-0.744 [facility] Comment on above: Performed By: #### 1 988-5 #### [facility] ([id number]) [address], [address] [place] [address] CBC AND AUTO DIFFon 04-22-20 24 ABSOLUTE BASOPHIL 0.1 X10E9/L Normal 0.0-0.2 [facility] Comment on above: Performed By: #### C BCA, 74351-6, 1988-01, 78977-8 #### [facility] ([id number]) [address], [address] [place] [address] ABSOLUTE NEUTROPHIL 3.8 X10E9/L Normal 1.5-6.6 [facility] Comment on above: Performed By: #### Rajesh LIMA, 33657-5, 1988-01, 70388-8 #### [facility] ([id number]) [address], [address] [place] [address] Basophils/100 WBC (Bld) 0.7 % Normal [facility] Comment on above: Performed By: #### Rajesh LIMA, 21961-7, 1988-01, #### [facility] ([id number]) [address], [address] [place] [address] Eosinophils (Bld) [#/Vol] 0.3 10*3/uL Normal 0.0-0.4 [facility] Comment on above: Performed By: #### Rajesh LIMA, 70197-1, 1988-01, #### [facility] ([id number]) [address], [address] [place] [address] Eosinophils/100 WBC (Bld) 4.1 % Normal [facility] Comment on above: Performed By: #### Rajesh LIMA, 70084-7, 1988-01, #### [facility] ([id number]) [address], [address] [place] [address] Erythrocyte distribution width (RBC) [Ratio] 13.2 % Normal 11.5-15.0 [facility] Comment on above: Performed By: #### Rajesh LIMA, 16520-7, 1988-01, #### [facility] ([id number]) [address], [address] [place] [address] Hematocrit (Bld) [Volume fraction] 39.5 % Normal 35-47 [facility] Comment on above: Performed By: #### Rajesh LIMA, 83739-4, 1988-01, #### [facility] ([id number]) [address], [address] [place] [address] Hemoglobin (Bld) [Mass/Vol] 13.6 g/dL Normal 11.7-15.5 [facility] Comment on above: Performed By: #### Rajesh LIMA, 45048-8, 1988-01, #### [facility] ([id number]) [address] [place] [address] Lymphocytes (Bld) [#/Vol] 2.6 10*3/uL Normal 1.0-3.5 [facility] Comment on above: Performed By: #### Rajesh LIMA, 63110-2, 1988-01, #### [facility] ([id number]) [address] [address] Lymphocytes/100 WBC (Bld) 37.5 % Normal [facility] Comment on above: Performed By: #### Rajesh LIMA, 98146-6, 1988-01, #### [facility] ([id number]) [address] [place] [address] MCH (RBC) [Entitic mass] 29.2 pg Normal 27-34 [facility] Comment on above: Performed By: #### Rajesh LIMA, 00464-5, 1988-01, #### [facility] ([id number]) [address] [place] [address] MCHC (RBC) [Mass/Vol] 34.3 g/dL Normal 32-36 [facility] Comment on above: Performed By: #### Rajesh LIMA, 53230-1, 1988-01, #### [facility] ([id number]) [address] [address] MCV (RBC) [Entitic vol] 85 fL Normal 80-100 [facility] Comment on above: Performed By: #### Rajesh LIMA, 05858-7, 1988-01, #### [facility] ([id number]) [address], [address] [place] [address] Monocytes (Bld) [#/Vol] 0.3 10*3/uL Normal 0-0.9 [facility] Comment on above: Performed By: #### Rajesh LIMA, 49696-5, 1988-01, 49365-0 #### [facility] ([id number]) [address], [address] [place] [address] Monocytes/100 WBC (Bld) 3.9 % Normal [facility] Comment on above: Performed By: #### Rajesh LIMA, 95930-5, 1988-01, #### [facility] ([id number]) [address], [address] [place] [address] Neutrophils/100 WBC (Bld) 53.8 % Normal [facility] Comment on above: Performed By: #### Rajesh LIMA, 16506-1, 1988-01, #### [facility] ([id number]) [address], [address] [place] [address] Platelet mean volume (Bld) [Entitic vol] 8.5 fL Normal 7-12 [facility] Comment on above: Performed By: #### Rajesh LIMA, 94095-5, 1988-01, #### [facility] ([id number]) [address], [address] [place] [address] Platelets (Bld) [#/Vol] 284 10*3/uL Normal 150-450 [facility] Comment on above: Performed By: #### Rajesh LIMA, 29315-6, 1988-01, 92428-8 #### [facility] ([id number]) [address], [address] [place] [address] RBC COUNT 4.65 X10E12/L Normal 3.80-5.20 [facility] Comment on above: Performed By: #### Rajesh LIMA, 57036-3, 1988-01, 33855-0 #### [facility] ([id number]) [address], [address] [address] WBC (Bld) [#/Vol] 7.0 10*3/uL Normal 4.0-11.0 [facility] Comment on above: Performed By: #### Rajesh LIMA, 42530-3, 1988-01, 75898-1 #### [facility] ([id number]) [address], [address] [address] CRP [Mass/Vol]on 04-22-2024 C REACTIVE PROTEIN 2.8 mg/dL High 0.000-0.744 [facility] Comment on above: Performed By: ###Golden Mena BCA, 49161-5, 1988-01, 91880-5 #### [facility] ([id number]) [address], [address] [address] ESR Photometric method (Bld) [Velocity]on 04-22-2024 ESR, ERYTHROCYTE SEDIMENTATION RATE 9 mm/h Normal 0-20 [facility] Comment on above: Performed By: ###Golden Mena BCA, 06861-4, 1988-01, 80465-0 #### [facility] ([id number]) [address], [address] [address] Nuclear Ab IA Ql (S)on 04-22 RANJIT Screen w/reflex Negative Normal NEG [facility] Comment on above: Result Comment: Testing performed using multiplex flow immunoassay. Eleven different antigens associated with systemic autoimmune diseases (dsDNA,Sm,Sm/TRAFFIC CHIEF,TRAFFIC CHIEF,Chromatin, SSA,SSB,Stephanie-1,Scl70,Ribo P,Centromere B) are included in this screening test. Performed By: ###Golden Mena BCA, 44406-1, 1988-01, 29890-6 #### [facility] ([id number]) [address], [address] [address] HGB A1C (GLYCO-HGB)on 2023 Glucose [Mass/Vol] 94 mg/dL Normal [facility] Comment on above: Performed By: #### Michael A1C, 04681-2, TSHR #### [facility] ([id number]) [address], [facility] [address] [place] [address] HbA1c (Bld) [Mass fraction] 4.9 % Normal 4.4-5.6 [facility] Comment on above: Result Comment: NOTE ADA Guidelines Result HgbA1c Normal : less than 5.7 % Prediabetes : 5.7 % to 6.4 % Diabetes : > 6.4 % Use with caution in patients with abnormal hemoglobin variants as the half-life of red blood cells and in vivo glycation rates are affected. Performed By: #### Michael A1C, 23060-1, TSHR #### [facility] ([id number]) [address], [address] [place] [address] Lipid 1996 panelon Cholesterol [Mass/Vol] 141 mg/dL Low 150-200 [facility] Comment on above: Performed By: #### Michael A1C, 54881-4, TSHR #### [facility] ([id number]) [address], [address] [place] [address] Cholesterol in HDL [Mass/Vol] 57 mg/dL Normal >39 [facility] Comment on above: Result Comment: HDL <40 mg/dL - High Risk HDL > or = 40mg/dL- Desirable HDL >60 mg/dL - Negative Risk Performed By: #### H A1C, 10797-8, TSHR #### [facility] ([id number]) [address], [address] [place] [address] Cholesterol in LDL [Mass/Vol] 60 mg/dL Normal <130 [facility] Comment on above: Result Comment: LDL <100 mg/dL - Desirable LDL >160 mg/dL - High Risk Performed By: #### H A1C, 59884-6, TSHR #### [facility] ([id number]) [address] [address] Cholesterol in VLDL [Mass/Vol] 24 mg/dL Normal 0-30 [facility] Comment on above: Performed By: #### H A1C, 14839-5, TSHR #### [facility] ([id number]) [address] [address] CHOLESTEROL:HDL 2.5 Normal 1.0-5.0 [facility] Comment on above: Performed By: #### H A1C, 00155-7, TSHR #### [facility] ([id number]) [address], [address] [address] Triglyceride [Mass/Vol] 122 mg/dL Normal 27-150 [facility] Comment on above: Performed By: #### H A1C, 03212-0, TSHR #### [facility] ([id number]) [address], [address] [address] TSH WITH REFLEXon 01-24-2024 TSH 1.20 uIU/mL Normal 0.49-4.67 [facility] Comment on above: Performed By: #### H A1C, 76054-9, TSHR #### [facility] ([id number]) [address], [address] [address] PAP ACOG PANEL 2: 21 to 29on 04-14-2022 . . Normal [facility] Comment on above: Performed By: #### 4 [id number] #### [facility] [address] [place] [address] Dr. Vish Mohr Age Gdln ACOG Testing 21-29 [facility] Comment on above: Performed By: #### 4 [id number] #### [facility] [address] [place] [address] Dr. Vish Mohr DIAGNOSIS: Comment Normal [facility] Comment on above: Result Comment: NEGA TIVE FOR INTRAEPITHELIAL LESION OR MALIGNANCY. Performed By: #### 4 [id number] #### [facility] [address] [place] [address] Dr. Vish Mohr Methodology: Comment [facility] Comment on above: Result Comment: This liquid based ThinPrep(R) pap test was screened with the use of an image guided system. Performed By: #### 4 [id number] #### [facility] [address] [place] [address] Dr. Vish Mohr Note: Comment [facility] Comment on above: Result Comment: The Pap smear is a screening test designed to aid in the detection of premalignant and malignant conditions of the uterine cervix. It is not a diagnostic procedure and should not be used as the sole means of detecting cervical cancer. Both false-positive and false-negative reports do occur. . Performed By: #### 4 [id number] #### [facility] [address] [place] [address] Dr. Vish Mohr Performed by: Comment Normal [facility] Comment on above: Result Comment: Valentin Negron, Clinical Assistant (ASCP) Performed By: #### 4 [id number] #### [facility] [address] [place] [address] Dr. Vish Mohr Reflex Criteria: Comment [facility] Comment on above: Result Comment: The HPV DNA reflex criteria were not met with this specimen result therefore, no HPV testing was performed. . Performed By: #### 4 [id number] #### [facility] [address] [place] [address] Dr. Vish Mohr Specimen adequacy: Comment Normal [facility] Comment on above: Result Comment: Sati sfactory for evaluation. Endocervical and/or squamous metaplastic cells (endocervical component) are present. Performed By: #### 4 [id number] #### [facility] [address] [place] [address] Dr. Vish Mohr Vital Signs Date Time Vital Sign Value Performing Clinician Facility 09-11-2024 12:18-0500 Body mass index (BMI) [Ratio] 28.42 kg/m2 Jie Gisel DO Work Phone: [facility] 09-11-2024 12:18-0500 Body weight 70.49 kg Jie Gisel DO Work Phone: [facility] 09-11-2024 12:18-0500 Diastolic blood pressure 80 mm[Hg] Jie Gisel DO Work Phone: [facility] 09-11-2024 12:18-0500 Systolic blood pressure 120 mm[Hg] Jie Gisel DO Work Phone: [facility] 08-05-2024 13:27-0500 Body mass index (BMI) [Ratio] 29.59 kg/m2 Jie Gisel DO Work Phone: [facility] 08-05-2024 13:27-0500 Body weight 73.39 kg Jie Gisel DO Work Phone: [facility] 08-05-2024 13:27-0500 Diastolic blood pressure 70 mm[Hg] Jie Gisel DO Work Phone: [facility] 08-05-2024 13:27-0500 Systolic blood pressure 114 mm[Hg] Jie Gisel DO Work Phone: [facility] 07-31-2024 10:37-0500 Body mass index (BMI) [Ratio] 35 kg/m2 Eh Waterman APRN-BALE OPENER Work Phone: [facility] 07-31-2024 10:37-0500 Body temperature 97.9 [degF] Eh Waterman RADIAL ROUTER OPERATOR-BALE OPENER Work Phone: [facility] 07-31-2024 10:37-0500 Body weight 73.39 kg Eh Waterman RADIAL ROUTER OPERATOR-BALE OPENER Work Phone: [facility] 07-31-2024 10:37-0500 Diastolic blood pressure 64 mm[Hg] Eh Waterman RADIAL ROUTER OPERATOR-BALE OPENER Work Phone: [facility] 07-31-2024 10:37-0500 Heart rate 75 /min Eh Waterman RADIAL ROUTER OPERATOR-BALE OPENER Work Phone: [facility] 07-31-2024 10:37-0500 SaO2% (BldA) [Mass fraction] 97 % Eh Waterman RADIAL ROUTER OPERATOR-BALE OPENER Work Phone: [facility] 07-31-2024 10:37-0500 Systolic blood pressure 116 mm[Hg] Eh Waterman RADIAL ROUTER OPERATOR-BALE OPENER Work Phone: [facility] Encounters Encounter Date Encounter Type Care Provider Facility Start: 09-11-2024 End: 09-11-2024 Patient encounter procedure Jie Gisel DO Work Phone: [facility] Comment on above: 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 Start: 09-11-2024 End: 09-11-2024 ambulatory JIE GISEL Not Available Start: 09-02-2024 End: 09-02-2024 Refill Eh Waterman APRN-BALE OPENER Work Phone: [facility] Comment on above: Persistent depressiv e disorder Start: 08-05-2024 End: 08-05-2024 Bamboo flowsheet Jie Gisel DO Work Phone: [facility] Start: 08-05-2024 End: 08-13-2024 Bamboo flowsheet Jie Gisel DO Work Phone: [facility] Start: 08-05-2024 End: 08-13-2024 Clinisync Result Encounter Jie Gisel DO Work Phone: [facility] Unsolicited Start: 08-05-2024 End: 08-05-2024 ambulatory JIE BATRES Not Available Start: 08-05-2024 End: 08-05-2024 Patient encounter procedure Jie Batres DO Work Phone: [facility] Work Phone: Start: 08-05-2024 End: 08-05-2024 Periodic preventive med est patient 18-39 yrs Jie Batres DO Work Phone: [facility] Comment on above: Well woman exam with routine gynecological exam; Skin yeast infection Start: 07-31-2024 End: 07-31-2024 Office outpatient visit 15 minutes Eh Waterman RADIAL ROUTER OPERATOR-BALE OPENER Work Phone: [facility] Comment on above: Insomnia, unspecifie d type (Primary Dx); Persistent depressive disorder; Dry skin; Skin candidiasis Start: 07-31-2024 End: 07-31-2024 ambulatory [facility] Start: 07-25-2024 End: 07-27-2024 Refill Eh Waterman RADIAL ROUTER OPERATOR-BALE OPENER Work Phone: [facility] Start: 05-23-2024 End: 05-23-2024 ambulatory [facility] Start: 05-01-2024 End: 05-01-2024 ambulatory [facility] Start: 04-22-2024 End: 04-22-2024 ambulatory [facility] Start: 04-07-2024 End: 04-07-2024 ambulatory [facility] Start: 02-12-2024 End: 02-12-2024 ambulatory [facility] Start: 01-24-2024 End: 01-25-2024 ambulatory [facility] Start: 01-24-2024 End: 01-24-2024 ambulatory [facility] Start: 12-13-2023 Orders Only Eh elizabeth RADIAL ROUTER OPERATOR-BALE OPENER Work Phone: [facility] Start: 09-24-2023 Refill Eh Marline glenn RADIAL ROUTER OPERATORMetaBALE OPENER Work Phone: [facility] Comment on above: Persistent depressiv e disorder Start: 04-11-2022 End: 04-11-[address] JIE BATRES Facility: Procedures Date Procedure Procedure Detail Performing Clinician Start: 09-11-2024 [facility] Work Phone: Start: 09-11-2024 Urine test visual color cmprsn meths Jie Gisel DO Work Phone: Start: 08-05-2024 IGP,APTIMA HPV,AGE GDLN Jie Gisel DO Work Phone: Start: 05-01-2024 Adult depression scr eening assessment Eh Wat[facility] Work Phone: Start: 01-24-2024 Follow-up visit Follow-up NESTOR WATERMAN Start: 07-31-2023 Microscopic observat ion [Identifier] in Cervix by Cyto stain Eh Waterman [facility] Work Phone: Start: 06-20-2023 Adult depression scr eening assessment Eh Rojas RADIAL [facility] Work Phone: Plan of Treatment Date Care Activity Detail Author Start: 01-01-2029 DTaP,Tdap and Td Vaccines (2 - Td or Tdap) DTaP,Tdap and Td Vaccines (2 - Td or Tdap) [facility] Start: 07-31-2026 Screening for malign ant neoplasm of cervix Pap Smear [facility] Start: 08-11-2025 End: 08-11-2025 Patient encounter procedure 08/11/2025 2:00 PM EST Office Visit [facility] [address] [place] [id number] Jie Batres, DO [address] [place] [address] [facility] Start: 07-31-2025 Adult BMI Screening Adult BMI Screen ing [facility] Start: 07-31-2025 Tobacco Screening Tobacco Screening [facility] Start: 05-10-2025 Tobacco Screening Tobacco Screening [facility] Start: 05-01-2025 Adult BMI Screening Adult BMI Screen ing [facility] Start: 05-01-2025 Depression Screening Depression Scre ening [facility] Start: 03-12-2025 End: 03-12-2025 Patient encounter procedure 03/12/2025 11:00 AM EDT Procedure Visit [facility] [address] [id number] Jie Batres, DO [address] [place], [place] [id number] [facility] Start: 10-09-2024 End: 10-09-2024 [facility] Start: 09-11-2024 End: 09-11-2025 Colposcopy Colposcopy Procedures Routine LGSIL of cervix of undetermined significance Expected: 09/11/2024 (Approximate), Expires: 09/11/2025 [facility] Work Phone: Comment on above: Expected: 09/11/2024 (Approximate), Expires: 09/11/2025 Start: 09-11-2024 End: 09-11-2024 Patient encounter procedure 09/11/2024 11:30 AM EST Procedure Visit [facility] [address] [id number] Jie Batres, DO [address] [place] [address] [facility] Start: 08-12-2024 Adult BMI Screening Adult BMI Screen ing [facility] Start: 08-12-2024 Tobacco Screening Tobacco Screening [facility] Start: 07-31-2024 End: 07-31-2024 Patient encounter procedure 07/31/2024 10:40 AM EST Office Visit [facility] [address] [place] [address] Eh Waterman APRN-CNP [address] [place] [phone] [facility] Start: 06-20-2024 Depression Screening Depression Scre ening [facility] Start: 05-25-2024 Influenza vaccination Influenza Vacc ine [facility] Start: 01-24-2024 End: 01-24-2024 Patient encounter procedure [facility] Start: 05-25-2023 Influenza vaccination Influenza Vacc ine [facility] Start: 2014 Screening for malign ant neoplasm of cervix Pap Smear [facility] Start: 2011 Adult BMI Follow Up Plan Adult BMI Follow Up Plan [facility] Cytology Cervical or vaginal smear or scraping study Pap Smear Pathology and Cytology Routine Well woman exam with routine gynecological exam Ordered: 08/05/2024 [facility] Work Phone: Comment on above: Ordered: 08/05/2024 Human papilloma viru s DNA [Presence] in Unspecified specimen by Probe with amplification HPV DNA probe, amplified Microbiology Routine Well woman exam with routine gynecological exam Ordered: 08/05/2024 [facility] Comment on above: Ordered: 08/05/2024 Immunizations Immunization Date Immunization Notes Care Provider Fa chalinoty 01-01-2019 tetanus toxoid, redu ernesot diphtheria toxoid, and acellular pertussis vaccine, adsorbed Eh Waterman [facility] Work Phone: [facility] Payers Date Payer Category Payer Medicaid [id number] 2022 Medicaid [id number] 2019 Worker's Comp, Other (unspecified) WORKER'S COMPENSATION [id number] 1993 Unknown [id number]. 593 1993 Unknown [id number] [id number]. 1286 1993 Unknown [id number] 2.16.840.1.001730.3.579.2. 1286 1993 Unknown [id number] [id number]. 1286 1993 Unknown [id number] [id number]. 1286 1993 Unknown [id number] 2.16.840.1.508420.3.579.2. 1286 1993 Unknown [id number] 2.16.840.1.192339.3.579.2. 1286 1993 Unknown [id number] 2.16.840.1.109489.3.579.2. 1286 1993 Unknown [id number] 2.16.840.1.970117.3.579.2. 1286 1993 Unknown [id number] 2.16.840.1.013135.3.579.2. 1259 1993 Unknown [id number] [id number]. 1259 1959 Unknown [id number] Social History Date Type Detail Facility Start: 06-20-2023 End: 07-17-2023 Tobacco smoking status NHIS Never smoked tobacco [facility] Start: 06-20-2023 End: 07-17-2023 Tobacco use and exposure Smokeless tobacco non-user [facility] Start: 08-12-2023 End: 07-31-2024 Alcohol intake Current non-drinker of alcohol (finding) [facility] Start: 08-12-2023 End: 01-16-2024 History of Social function [facility] Start: 08-12-2023 End: 01-16-2024 Tobacco use panel [facility] Adolescent depressio n screening assessment 16 [facility] Start: 1995 Sex Assigned At Not on file [facility] Start: 04-29-2015 Sex Female (finding) [facility] Start: 08-05-2024 End: 09-11-2024 Alcoholic beverage intake Current drinker of alcohol (finding) [facility] Start: 07-17-2023 Alcohol Comment Occasional alcohol u se [facility] Clinical Notes 07-31-2024 to 09-11-2024 Radha Durham, [facility] - 09/11/2024 11:30 AM Antonia Moralez, [facility] - 08/05/2024 1:00 PM Lianne Waterman, [facility] - 07/31/2024 10:40 AM EST Note Date & Type Note Facility 09-11-2024 History of Present illness Narrative Associated Order(s): Colposcopy Post-Procedure Diagnose(s): LGSIL of cervix of undetermined significance Reason for Appointment: Patient ID: Rani Noe is a 29 y.o. female who presents for No chief complaint on file. Patient presents today for a Colposcopy appointment. MEDICATIONS Current Outpatient Medications Medication Instructions nystatin (Mycostatin) 454676 UNIT/GM powder Topical, 3 times daily sertraline (ZOLOFT) 50 mg, Daily RT traZODone (DESYREL) 100 mg, Nightly ALLERGIES No Known Allergies SURGICAL HISTORY Past Surgical History: Procedure Laterality Date SECTION, LOW TRANSVERSE 11/2013 REVIEW OF SYSTEMS Review of Systems: Review of Systems All other systems reviewed and are negative. OBJECTIVE Objective: Physical Exam Constitutional: Appearance: Normal appearance. She is well-developed. Genitourinary: Vulva normal. Cardiovascular: Rate and Rhythm: Normal rate and regular rhythm. Pulmonary: Effort: Pulmonary effort is normal. Breath sounds: Normal breath sounds. Abdominal: General: Bowel sounds are normal. There is no distension. Palpations: Abdomen is soft. Tenderness: There is no abdominal tenderness. There is no guarding or rebound. Musculoskeletal: General: No swelling. Normal range of motion. Right lower leg: No edema. Left lower leg: No edema. Neurological: Mental Status: She is alert and oriented to person, place, and time. Skin: General: Skin is warm and dry. Psychiatric: Mood and Affect: Mood normal. Behavior: Behavior normal. Vitals and nursing note reviewed. Exam conducted with a appeals rn present. Vitals: Estimated body mass index is 28.42 kg/m as calculated from the following: Height as of 01/15/23: 5' 2 . Weight as of this encounter: 155 lb 6.4 oz. BP: 120/80 Patient's last menstrual period was 09/11/2024. ASSESSMENT & PLAN Assessment/Plan Encounter Diagnosis: ICD-10-CM 1. LGSIL of cervix of undetermined significance R87.612 POCT , urine manually resulted Colposcopy Colposcopy Date/Time: 09/11/2024 3:39 PM Performed by: Jie Batres DO Authorized by: Jie Batres DO Procedure location: cervix Consent: Patient questions answered: yes Risks and benefits of the procedure and its alternatives discussed: yes Consent obtained: Written Consent given by: Patient Indication: Cervical indication(s): high-risk HPV positive and cervical LSIL Pre-procedure: Speculum was placed in the vagina: yes Prep solution(s): acetic acid Procedure: Colposcopy with: colposcopy only and endocervical curettage Cervix visibility: fully visualized Cervical impression: normal/benign Ferric subsulfate solution applied: no Tampon inserted: no Post-procedure: Patient tolerance of procedure: Patient tolerated the procedure well with no immediate complications Instructions and paperwork completed: yes Educational handouts given: yes Colposcopy: Patient is doing well and has no complaints. Pap results have been reviewed with the patient in great detail and patient voiced understanding. Patient presents today for a Colposcopy with ECC. Patient was placed in dorsal lithotomy position with feet in stirrups, a sterile speculum was placed into the vagina and the cervix was visualized. Cervix was cleansed with vinegar. Postprocedural instructions given. All if patients questions answered and she expressed understanding. Advised to call in interim with questions or concerns. Follow Up: Patient is to return in 6 months for Repeat Pap. Documented by Мария Carrera LPN on behalf of: Jie Batres DO documented in this encounter [facility] 08-05-2024 History of Present illness Narrative Reason for Appointment: Patient ID: Rani Noe is a 29 y.o. female who presents for Well Women Visit Patient presents today for Annual Exam. MEDICATIONS Current Outpatient Medications Medication Instructions sertraline (ZOLOFT) 50 mg, Daily RT ALLERGIES No Known Allergies PROBLEMS Active Ambulatory Problems Diagnosis Date Noted No Active Ambulatory Problems Resolved Ambulatory Problems Diagnosis Date Noted No Resolved Ambulatory Problems Past Medical History: Diagnosis Date BMI 26.0-26.9,adult Breast pain Depression (CMS/HCC) Depression screening Erythema of skin Menorrhagia with regular cycle Patient desires Well woman exam HISTORY PAST MEDICAL HISTORY SOCIAL HISTORY Past Medical History: Diagnosis Date BMI 26.0-26.9,adult Breast pain Depression (CMS/HCC) Depression screening Erythema of skin Menorrhagia with regular cycle Patient desires Well woman exam Social History Tobacco Use Smoking status: Never Smokeless tobacco: Never Substance Use Topics Alcohol use: Yes Comment: Occasional alcohol use Drug use: Never FAMILY HISTORY Family History Problem Relation Name Age of Onset Mental illness Mother Heart disease Maternal Grandfather Diabetes Paternal Grandmother SURGICAL HISTORY Past Surgical History: Procedure Laterality Date SECTION, LOW TRANSVERSE 11/2013 REVIEW OF SYSTEMS Review of Systems: Review of Systems Constitutional: Negative. HENT: Negative. Eyes: Negative. Respiratory: Negative. Cardiovascular: Negative. Gastrointestinal: Negative. Genitourinary: Negative. Musculoskeletal: Negative. Skin: Negative. Neurological: Negative. All other systems reviewed and are negative. Hematological: Negative. Endocrine: Negative. Allergic/Immunologic: Negative. OBJECTIVE Objective: Physical Exam Constitutional: Appearance: Normal appearance. She is well-developed. Genitourinary: Vulva normal. Breasts: Breasts are soft. Right: Normal. Left: Normal. Cardiovascular: Rate and Rhythm: Normal rate and regular rhythm. Pulmonary: Effort: Pulmonary effort is normal. Breath sounds: Normal breath sounds. Abdominal: General: Bowel sounds are normal. There is no distension. Palpations: Abdomen is soft. Tenderness: There is no abdominal tenderness. There is no guarding or rebound. Musculoskeletal: General: No swelling. Normal range of motion. Right lower leg: No edema. Left lower leg: No edema. Neurological: Mental Status: She is alert and oriented to person, place, and time. Skin: General: Skin is warm and dry. Psychiatric: Mood and Affect: Mood normal. Behavior: Behavior normal. Vitals and nursing note reviewed. Exam conducted with a appeals rn present. Vitals: Estimated body mass index is 29.59 kg/m as calculated from the following: Height as of 23: 5' 2 . Weight as of this encounter: 161 lb 12.8 oz. BP: 114/70 No LMP recorded (within months). ASSESSMENT & PLAN ICD-10-CM 1. Well woman exam with routine gynecological exam Z01.419 Pap Smear HPV DNA probe, amplified Annual Exam: Patient presents today for an annual exam. Patient states she is doing well and has complaints of yeast infection under breasts, rx for nystatin faxed to pharmacy. Pap was obtained without difficulty. Orders Placed This Encounter Procedures HPV DNA probe, amplified Follow Up: Patient is to return in one year for annual unless needed otherwise. Documented by Joyce Moralez LPN on behalf of: Jie Batres DO documented in this encounter [facility] 07-31-2024 History of Present illness Narrative Subjective [...] bedtime. Do all this for 7 days. CHUY Amaya 07/31/24 1446 documented in this encounter [facility] Evaluation note Diagnosis Persistent depressive disorder [facility] Diagnosis Insomnia, unspecified type- Primary Persistent depressive disorder Dry skin Other symptoms involving skin and integumentary tissues Skin candidiasis Candidiasis of skin and nails [facility]* Diagnosis Well woman exam with routine gynecological exam Routine gynecological examination Skin yeast infection Candidiasis of skin and nails documented in this encounter [facility] HealthcareEvaluation note* Diagnosis Persistent depressive disorder documented in this encounter [facility] SystemEvaluation note* Diagnosis LGSIL of cervix of undetermined significance documented in this encounter [facility]InstructionsNot on filedocumented in [facility] SystemInstructionsNot on filedocumented in this [facility] SystemInstructionsNot on filedocumented in this [facility] SystemInstructionsNot on filedocumented in this [facility] InstructionsNot on filedocumented in this [facility] Summary Purpose Family History No Family [...] and content) DATE CREATED AUTHOR 04/14/[address] [facility] DATE CREATED AUTHOR AUTHOR'S ORGANIZ ATION 01/26/2024 [facility] DATE CREATED AUTHOR AUTHOR'S ORGANIZ ATION 05/24/2024 [facility] DATE CREATED AUTHOR AUTHOR'S ORGANIZ ATION 08/02/2024 [facility] DATE CREATED AUTHOR AUTHOR'S ORGANIZ ATION 09/14/2024 [facility] EPIC Reason for Visit (unrecogniz ed section and content) Reason Comments Med Refill Reason Comments Follow-up Headaches and sleep Reason Comments Well Women Visit Reason Comments Med Refill Care Teams (unrecognized sec tion and content) Clerk Secretary Relationship Specialty Start Date End Date Eh Waterman APRN-CNP [address] [facility] [address] [place] [address] PCP - General Nurse Practitioner 06/20/23 Clerk Secretary Relationship Specialty Start Date End Date Eh Waterman APRN-CNP PCP - General Nurse Practitioner 06/20/23 Clerk Secretary Relationship Specialty Start Date End Date Eh Waterman APRN-CNP PCP - General Nurse Practitioner 06/20/23 Clerk Secretary Relationship Specialty Start Date End Date Eh Waterman APRN-CNP PCP - General Nurse Practitioner 06/20/23 Clerk Secretary Relationship Specialty Start Date End Date Eh Waterman MD [address] [place] [address] PCP - General Family Medicine 07/31/23 Clerk Secretary Relationship Specialty Start Date End Date Eh Waterman MD [address], [facility] [place] [address] PCP - General Family Medicine 07/31/23 Clerk Secretary Relationship Specialty Start Date End Date Eh Waterman, RADIAL ROUTER OPERATOR-BALE OPENER PCP - General Nurse Practitioner 06/20/23 Clerk Secretary Relationship Specialty Start Date End Date Eh Waterman MD [address], [place] [address] PCP - General Family Medicine 07/31/23 FOR RECORDS PERTAINING TO PATIENTS WHO ARE [...] BE BASED ON THE PRIMARY CLINICAL RECORDS. [facility]. provides no warranty or guarantee of the accuracy or completeness of information in this document.
== END 2024-09-11 08:05 | disposition home or self-care (01) ==
LOC: LAB 08:04
PROVIDERS: Visit Provider Obstetrics & Gynecology
DX: R87.612 Low grade squamous intraepithelial lesion on cytologic smear of cervix (LGSIL) (principal)
CPT/HCPCS: 88305

== ENCOUNTER 2025-03-12 14:55 | Outpatient (REF) | payer MEDICAID, SELFPAY ==
--- OUTSIDE RECORDS SUMMARY | 2025-03-06 10:40 | XMS_ITS | Encounter Summary ---
Author Organization [facility] tem Address [id number] [address] [place] [address] Care Team Providers Care Oil Lease Broker Name Role Phone Martha Pal ROPEMAN-METAL TANK BUILDER Primary Care Provider Encounter Details Date Type Department Care Team (Late st Contact Info) Description 03/06/2025 10:40 AM EDT Telemedicine [facility] [address] [place] [address] Martha Pal APRN-CNP [address], [facility] [place] [address] Herpes zoster without complication Social History Tobacco Use Types Packs/Day Years Used Date Smoking Tobacco: Never Smokeless Tobacco: Never Alcohol Use Standard Drinks/Week Comments No 0 (1 standard drink = 0.6 oz pur e alcohol) Overall Financial Resource Strain (CARDIA) Answe r Date Recorded How hard is it for you to pa y for the very basics like food, housing, medical care, and heating? Somewhat hard 03/06/2025 PHQ-2 Answer Date Recorded Total Score 6 05/01/2024 PRAPARE - Transportation Answer Date Re corded In the past 12 months, has l ack of transportation kept you from medical appointments or from getting medications? No 02/22 In the past 12 months, has l ack of transportation kept you from meetings, work, or from getting things needed for daily living? Yes 03/06/2025 Housing Instability Answer Date Recorde d Are you worried or concerned that in the next two months you may not have stable housing that you own, rent or stay in as a part of a household? No 03/06/2025 Childcare Answer Date Recorded Childcare Unknown 03/05/2019 Employment Answer Date Recorded Employment Unknown 03/05/2019 Hunger Screening Answer Date Recorded Within the past 12 months we worried whether our food would run out before we got money to buy more. Sometimes True 025 Within the past 12 months th e food we bought just didn't last and we didn't have money to get more. Sometimes True 03/06/2025 Purpose - Life Answer Date Recorded Purpose and direction in life Unknown Comments No Sex and Gender Information Value Date Recorded Sex Assigned at Not on file Legal Sex Female 12:11 PM EDT Gender Identity Not on file Sexual Orientation Not on file documented as of this encounter Progress Notes * Martha Pal, ROPEMAN-METAL TANK BUILDER - 03/06/2025 10:40 AM EDT Images from the original note were not included. Subjective Patient ID: Rani Noe is a 29 y.o. female. Video Visit via Real-time Synchronous Audiovisual Provider Location: [facility] [address] [place] [phone] Patient Location: Other Video Visit Consent Statement: I discussed risks, benefits, and alternatives of a real-time synchronous audiovisual consultation with the patient (and any accompanying persons) including the risks that the patient's personal health details and medical records will be discussed over real-time, synchronous, interactive video/audio/telecommunication technology, the visit will not be recorded withoutthe express consent of both the provider and the patient, and that there are some limitations compared to [id number] evaluations. The patient consented to the presence of additional virtual and/or in-person participants. We elected to proceed. LEELA Saravia presents via video visit to discuss pain from shingles. She was diagnosed with shingles on 02/12/2025 and she reports she completed amitriptyline, gabapentin, steroid and Valtrex but continues with pain. She reports the pain gets up to a 10/10 depending on activity. She reports the days that she works in more pain she has. She reports she has been taking Tylenol up to a 1000 mg and ibuprofenup to 400 mg as needed however this is not enough for pain. She reports she still has open lesions. She works m/w/f. She is typically working full days on Sunday and Sunday, but they are supposed to be half days. The following portions of the patient's history were reviewed and updated as appropriate: allergies, current medications, past family history, past medical history, past social history, past surgicalhistory, problem list, and medication reconciliation was completed including current medication andpost discharge medication. Review of Systems Constitutional: Negative. Respiratory: Negative. Cardiovascular: Negative. Musculoskeletal: Positive for myalgias. Skin: Positive for rash. Objective Physical Exam Constitutional: Appearance: Normal appearance. Comments: She does not appear to be in acute distress Pulmonary: Effort: Pulmonary effort is normal. Skin: Findings: Lesion present. Comments: Via video visit she was able to show me the rash and open lesions to right side of body. She appears to have open lesions still. Neurological: Mental Status: She is alert. Comments: She is interacting and answering appropriately. Assessment/Plan Discussed need to ensure that lesions are covered. Continue with gabapentin and amitriptyline. Increased to 400 mg TID. The OARRS/MAPPS database was reviewed today and found to be appropriate. No indication of medication diversion, or non compliance. tylenol and ibuprofen sent, take routinely for pain. We can continue these medicaiton longer term if needed. Discussed to please let me know if she needs me to send a note for work. Diagnoses and all orders for this visit: Herpes zoster without complication - gabapentin (NEURONTIN) 400 mg capsule; Take 1 capsule (400 mg total) by mouth 3 (three) times a day. Other orders - ibuprofen (MOTRIN) 600 mg tablet; Take 1 tablet (600 mg total) by mouth in the morning and 1 tablet (600 mg total) in the evening. Take with meals. - acetaminophen (TYLENOL EXTRA STRENGTH) 500 mg tablet; Take 2 tablets (1,000 mg total) by mouth every 6 (six) hours as needed for pain. - amitriptyline (ELAVIL) 25 mg tablet; Take 1 tablet (25 mg total) by mouth nightly. Martha Pal APRN-METAL TANK BUILDER 03/08/25 1123 documented in this encounter Plan of Treatment Not on file documented as of this encounter Visit Diagnoses Diagnosis Herpes zoster without complication documented in this encounter Additional Health Concerns Assessment Noted Time PHQ-9 Depression Total Score: 6 05/01/20 24 3:22 PM EDT documented as of this encounter Care Teams Oil Lease Broker Relationship Specialty Start Date End Date Martha Pal APRN-CNP [address] [place] [phone] PCP - General Family Medicine 02/24/25 documented as of this encounter
--- OUTSIDE RECORDS SUMMARY | 2025-03-12 11:00 | XMS_ITS | Encounter Summary ---
Author Organization [facility] Address [address] [facility] [place] [address] Care Team Providers Care Fence Setter Name Role Phone Martha Pal MD Primary Care Provider [phone] Reason for Visit * Reason Comments Repeat Pap Encounter Details Date Type Department Care Team (Latest Contact Info) Description 03/12/2025 11:00 AM EDT Procedure Visit [facility] [address] [facility] [place] [place] [address] Kit Batres DO [address], [facility] LGSIL of cervix of undetermined significance; Well woman exam with routine gynecological exam Social History Tobacco Use Types Packs/Day Years Used Date Smoking Tobacco: Never Smokeless Tobacco: Never Alcohol Use Standard Drinks/Week Comments Yes 0 (1 standard drink = 0.6 oz pur e alcohol) Occasional alcohol use Comments Unknown Sex and Gender Information Value Date Recorded Sex Assigned at Not on file Legal Sex Female 11:47 PM EDT Gender Identity Not on file Sexual Orientation Not on file documented as of this encounter Plan of Treatment Upcoming Encounters Date Type Department Care Team (Late st Contact Info) Description 08/11/2025 2:00 PM EST Office Visit [facility] [address] [place] [address] Kit Batres DO [address], [facility] 09/29/2025 10:00 AM EST Office Visit [facility] [address] [place] [address] Gisel, Kit, [address] [place] [address] [place] [address] Scheduled Orders Name Type Priority Associated Diagnoses Orde r Schedule Pap Smear Pathology and Cytology Routine Well woman exam with routine gynecological exam Ordered: 03/12/2025 HPV DNA probe, amplified Microbiology Routine Well woman exam with routine gynecological exam Ordered: 03/12/2025 documented as of this encounter Visit Diagnoses Diagnosis LGSIL of cervix of undetermined significance Well woman exam with routine gynecological exam Routine gynecological examination documented in this encounter Care Teams Fence Setter Relationship Specialty Start Date End Date Martha Pal MD [address] [facility] [address] [place] [address] PCP - General Family Medicine 07/31/23 documented as of this encounter
--- OUTSIDE RECORDS SUMMARY | 2025-03-12 14:58 | XMS_ITS | Clinical Summary ---
Author Organization [facility] tem Address [id number] [address] [place] [address] Care Team Providers Care Supervisor Uranium Processing Name Role Phone Pal, Martha AMES-INSERTER OPERATOR Primary Care Provider Allergies No known active allergies Medications lactic jgkm-mhkpiu-hchnw sium (PHEXXI) 1.8-1-0.4 % gelIndications:En counter for other contraceptive management Insert 1 Application into the vagina as needed (with intercourse). 5 g 3 06/18/20 24 Active ammonium lactate (LAC-HYDRIN) 12 % lotion Apply 1 Application topically as needed for dry skin. 400 g 1 07/31/20 24 Active sertraline (ZOLOFT) 50 mg tabletIndications :Persistent depressive disorder TAKE 1 TABLET BY MOUTH EVERY MORNING 30 tablet 5 09/02/20 24 Active ALAWAY 0.025 % (0.035 %) ophthalmic solution Administer 1 drop to both eyes in the morning and 1 drop before bedtime. 10 mL 6 10/09/19 25 Active nystatin-triamcin olone (MYCOLOG II) cream Apply 1 Application topically in the morning and 1 Application at noon and 1 Application in the evening and 1 Application before bedtime. 120 g 4 10/09/19 25 Active nystatin (MYCOSTATIN) powder Apply 1 Application topically in the morning and 1 Application before bedtime. 60 g 2 10/09/19 25 Active cholecalciferol (VITAMIN D3) 50,000 units capsule Take 1 capsule (50,000 Units total) by mouth once a week. 8 capsule 02/13/20 25 Active gabapentin (NEURONTIN) 400 mg capsuleIndication s:Herpes zoster without complication Take 1 capsule (400 mg total) by mouth 3 (three) times a day. 90 capsule 2 03/06/20 25 Active ibuprofen (MOTRIN) 600 mg tablet Take 1 tablet (600 mg total) by mouth in the morning and 1 tablet (600 mg total) in the evening. Take with meals. 60 tablet 03/06/20 25 Active acetaminophen (TYLENOL EXTRA STRENGTH) 500 mg tablet Take 2 tablets (1,000 mg total) by mouth every 6 (six) hours as needed for pain. 100 tablet 2 03/06/20 25 Active amitriptyline (ELAVIL) 25 mg tablet Take 1 tablet (25 mg total) by mouth nightly. 30 tablet 2 03/06/20 25 Active ibuprofen (MOTRIN) 600 mg tablet Take 1 tablet (600 mg total) by mouth every 6 (six) hours as needed for pain. 30 tablet 08/12/20 23 025 Discontinu ed(Reorder ) valACYclovir (VALTREX) 1000 mg tabletIndications :Herpes zoster without complication Take 1 tablet (1,000 mg total) by mouth 3 (three) times a day for 7 days. 21 tablet 02/13/20 25 025 predniSONE (STERAPRED DS) 10 mg tablet packIndications:H erpes zoster without complication Take 3 tablets (30 mg total) by mouth in the morning and at bedtime for 3 days, THEN 2 tablets (20 mg total) in the morning and at bedtime for 3 days, THEN 1 tablet (10 mg total) in the morning and at bedtime for 3 days, THEN 1 tablet (10 mg total) daily for 3 days. 39 tablet 02/13/20 25 025 gabapentin (NEURONTIN) 300 mg capsuleIndication s:Herpes zoster without complication Take 1 capsule (300 mg total) by mouth 3 (three) times a day for 14 days. 42 capsule 02/13/20 25 025 amitriptyline (ELAVIL) 10 mg tabletIndications :Herpes zoster without complication Take 1 tablet (10 mg total) by mouth nightly. 14 tablet 02/13/20 25 025 Discontinu ed(Alterna te therapy) Active Problems Problem Noted Date Diagnosed Date Persistent depressive disorder 06/20/2023 Anxiety 06/20/2023 Encounters Date Type Department Care Team Description 03/06/2025 10:40 AM EDT [facility] [address] [phone] Mratha Pal APRN-CNP Herpes zoster without complication 03/06/[address] [phone] Chanelle Underwood CNA Results 03/06/2025 Travel 02/24/2025 Travel 02/12/2025 2:40 PM EDT Office Visit [address] [phone] Martha Pal APRN-CNP Herpes zoster without complication (Primary Dx); Galactorrhea 02/12/2025 Travel 02/05/2025 8:00 AM EDT Clinical Support [address] [phone] Martha Pal APRN-CNP Wellness examination; Skin candidiasis; Insomnia, unspecified type 02/05/2025 Travel from Last 3 Months Immunizations Immunization Administration Dates Next Due Tdap 01/01/2019 Family History Medical History Relation Name Comments Angina Maternal Grandfather Heart attack Mother Thyroid cancer Paternal Grandmother Relation Name Status Comments Maternal Grandfather Mother Paternal Grandmother Social History Tobacco Use Types Packs/Day Years Used Date Smoking Tobacco: Never Smokeless Tobacco: Never Tobacco Cessation:Counseling Given: Not Answered Alcohol Use Standard Drinks/Week Comments No 0 [...] on file Sexual Orientation Not on file Last Filed Vital Signs Vital Sign Reading Time Taken Comments Blood Pressure 120/78 02/12/2025 2:36 PM EDT Pulse 78 02/12/2025 2:36 PM EDT Temperature 37 C (98.6 F) 02/12/2025 2:36 PM EDT Respiratory Rate 20 08/12/2023 9:53 AM EST Oxygen Saturation 97% 02/12/2025 2:36 PM EDT Inhaled Oxygen Concentration - - Weight 77.1 kg (170 lb) 02/12/2025 2:36 PM EDT Height 144.8 cm (4' 9.01 ) 10/09/2024 3:06 PM ES T Body Mass Index 36.78 10/09/2024 3:06 PM EST Plan of Treatment Health Maintenance Due Date Last Done Comments Adult BMI Follow Up Plan 2011 Depression Screening 05/01/2025 05/01/2024 Influenza Vaccine 05/25/2025 Adult BMI Screening 02/12/2026 02/12/2025 Tobacco Screening 03/06/2026 03/06/2025 Pap Smear 08/05/2027 08/05/2024, 07/31/2023 DTaP,Tdap and Td Vaccines (2 - Td or Tdap) 01/01/2029 01/01/2019 Medical Devices Not on file Procedures Procedure Name Priority Date/Time Associated Diagnosis Comments TSH WITH REFLEX Routine 02/24/2025 1:26 PM EDT Galactorrhea PROLACTIN Routine 02/24/2025 1:26 PM EDT Galactorrhea COMPREHENSIVE METABOLIC PANEL Routine 02/05/2025 8:55 AM EDT Wellness examination VITAMIN D 25 HYDROXY Routine 02/05/2025 8:55 AM EDT Wellness examination Insomnia, unspecified type HEMOGLOBIN A1C Routine 02/05/2025 8:55 AM EDT Wellness examination Skin candidiasis from Last 3 Months Results * TSH with Reflex (02/24/2025 1:26 PM EDT) TSH 1.07 0.49 - 4.67 uIU/mL 02/24/2025 6:10 PM EDT [facility] Blood Venous blood / Unknown Venipuncture / Unknown 02/24/2025 1:26 PM EDT 02/24/2025 1:27 PM EDT Martha [facility] BLO[facility] ORDER[facility] Fi nal Result Performing Organization Address [facility]/ZIP Co de Phone Number [facility] [address] [place] [address], * Prolactin level (02/24/2025 1:26 PM EDT) PROLACTIN 10.1 3.3 - 26.7 ng/mL 02/24/2025 6:16 PM EDT [facility] Blood Venous blood / Unknown Venipuncture / Unknown 02/24/2025 1:26 PM EDT 02/24/2025 1:27 PM EDT Martha Pal AUTHORIZATION [facility] LAB BLOOD ORDERABLES Fi nal Result [facility] [address] [place] [address], * (ABNORMAL) Vitamin D 25 hydroxy (02/05/2025 8:55 AM EDT) VITAMIN D 25 HYD TOT 19.5(L) 30.0 - 100.0 ng/mL 02/05/2025 9:07 PM EDT [facility] Blood Venous blood / Unknown Venipuncture / Unknown 02/05/2025 8:55 AM EDT 02/05/2025 8:55 AM EDT [facility] - 02/05/2025 9:07 PM EDT Vitamin D status 25 [place] Vitamin D Deficiency <20 ng/mL Insufficiency 20-29 ng/mL Sufficiency 30-100 ng/mL Toxicity >100 ng/mL NOTE: A pediatric reference range has not been established by the rubber mixer of this kit. The [place] [employer] recommends a Vitamin D level of = or >20ng/mL in infants and children. Martha Pal AUTHORIZATION COORDINATOR-[facility] LAB BLOOD ORDERABLES Fi nal Result Performing Organization Address [facility]/ZIP Co de Phone Number [facility] [address] [place] [address], * Hemoglobin A1c (02/05/2025 8:55 AM EDT) HEMOGLOBIN A1C 5.1 4.4 - 5.6 % 02/05/2025 9:11 PM EDT [facility] Comment: ADA Guidelines Result HgbA1c Normal : less than 5.7 % Prediabetes : 5.7 % to 6.4 % Diabetes : > 6.4 % Use with caution in patients with abnormal hemoglobin variants as the half-life of red blood cells and in vivo glycation rates are affected. EST. AVERAGE GLUCOSE 100 mg/dL 02/05/2025 9:11 PM EDT [facility] Blood Venous blood / Unknown Venipuncture / Unknown 02/05/2025 8:55 AM EDT 02/05/2025 8:55 AM EDT Martha Pal AUTHORIZATION COORDINATOR-INSERTER OPERATOR LAB BLOOD ORDERABLES Fi nal Result [facility] [address] [place] [address], * (ABNORMAL) Comprehensive metabolic panel (02/05/2025 8:55 AM EDT) SODIUM 140 134 - 146 mmol/L 02/05/2025 8:43 PM EDT [facility] POTASSIUM 4.0 3.5 - 5.0 mmol/L 02/05/2025 8:43 PM EDT [facility] CHLORIDE 109 98 - 109 mmol/L 02/05/2025 8:43 PM EDT [facility] CARBON DIOXIDE 23 22 - 32 mmol/L 02/05/2025 8:43 PM EDT [facility] ANION GAP 8 5 - 15 mmol/L 02/05/2025 8:43 PM EDT [facility] BLOOD UREA NITROGEN 16 5 - 23 mg/dL 02/05/2025 8:43 PM EDT [facility] CREATININE 1.07(H) 0.40 - 1.00 mg/dL 02/05/2025 8:43 PM EDT [facility] Comment:METHOD TRACEABLE TO IDMS STANDARD GLUCOSE 85 65 - 99 mg/dL 02/05/2025 8:43 PM EDT [facility] CALCIUM 9.1 8.5 - 10.5 mg/dL 02/05/2025 8:43 PM EDT [facility] TOTAL PROTEIN 7.2 6.0 - 8.0 g/dL 02/05/2025 8:43 PM EDT [facility] ALBUMIN 4.3 3.2 - 5.3 g/dL 02/05/2025 8:43 PM EDT [facility] ALKALINE PHOSPHATASE 54 39 - 130 U/L 02/05/2025 8:43 PM EDT [facility] AST 20 <=41 U/L 02/05/2025 8:43 PM EDT [facility] ALT 17 <=31 U/L 02/05/2025 8:43 PM EDT [facility] BILIRUBIN,TOTAL 0.3 0.3 - 1.2 mg/dL 02/05/2025 8:43 PM EDT [facility] EGFR Non-Race Dependent 71 >=60 ml/min/1.7 3sq.m 02/05/2025 8:43 PM EDT [facility] Comment: Reported eGFR is based on the CKD-EPI 2020 equation that does not use a race coefficient. Blood Venous blood / Unknown Venipuncture / Unknown 02/05/2025 8:55 AM EDT 02/05/2025 8:55 AM EDT Martha Pal AUTHORIZATION COORDINATOR-INSERTER OPERATOR LAB BLOOD ORDERABLES Fi nal Result [facility] [address] [place] [address], from Last 3 Months Insurance [facility] MEDICAID WORKER'S COMPENSATION ANTH MEDICAID Care Teams Supervisor Uranium Processing Relationship Specialty Start Date End Date Martha Pal APRN-CNP [address] [place] [address], [place] [phone] PCP - General Family Medicine 02/24/25
--- OUTSIDE RECORDS SUMMARY | 2025-03-12 14:58 | XMS_ITS | Encounter Summary ---
Author Organization [facility] Address [address] [facility] [place] [address] Care Team Providers Care Roof Slater Name Role Phone Martha Pal MD Primary Care Provider [phone] Encounter Details Date Type Department Care Team (Late st Contact Info) Description 08/14/2024 Orders Only [facility] [address] [facility] [place] [address] Radha Durham LPN [address] [employer] [facility] [place], [id number] Social History Tobacco Use Types Packs/Day Years [...] Encounters Date Type Department Care Team (Late Contact Info) Description 08/11/2025 2:00 PM EST Office Visit [facility] OB [address] [employer] [place] [place] [address] Kit Batres, DO [address] [place]o, [facility] 09/29/2025 10:00 AM EST Office Visit [facility] OB [address] [place] [address] Kit Batres, DO [address] [place]o, [id number] documented as of this encounter Procedures Procedure Name Priority Date/Time Associated Diagnosis Comments PAP SMEAR Routine 08/05/2024 12:00 AM EST documented in this encounter Results * Pap Smear (08/05/2024 12:00 AM EST) Swab Cervical swab / Unknown us [facility] Gisel Nurse LAB CYTOLOGY ORDERABLES Final Result EXTERNAL LAB documented in this encounter Visit Diagnoses Not on filedocumented in this encounter Care Teams Roof Slater Relationship Specialty Start Date End Date Martha Pal MD [address] [facility] [place] [address] PCP - General Family Medicine 07/31/23 documented as of this encounter
--- OUTSIDE RECORDS SUMMARY | 2025-03-12 14:58 | XMS_ITS | Clinical Summary ---
Author Organization [facility] Healthcare Address [address] [facility] [place] [address] Care Team Providers Care Ticket Chopper Assembler Name Role Phone Martha Pal MD Primary Care Provider [phone] Allergies No known active allergies Medications sertraline (Zoloft) 50 MG tablet Take 50 mg by mouth in the morning. 06/20/20 23 Active traZODone (Desyrel) 50 MG tablet Take 100 mg by mouth at bedtime 08/27/20 24 Active gabapentin (Neurontin) 400 MG capsule Take 400 mg by mouth in the morning and 400 mg at noon and 400 mg in the evening. 03/06/20 25 Active cholecalcifero l (Vitamin D-3) 1.25 MG (00717 UT) capsule Take 50,000 Units by mouth every 7 (seven) days 02/13/20 25 Active amitriptyline (Elavil) 25 MG tablet Take 25 mg by mouth at bedtime 03/06/20 25 Active ibuprofen 600 MG tablet Take 600 mg by mouth in the morning and 600 mg in the evening. Take with meals. 03/06/20 25 Active Phexxi 1.8-1-0.4 % gel Insert 1 Application into the vagina Daily as needed 06/18/20 24 Active nystatin (Mycostatin) 124693 UNIT/GM powderIndicati ons:Skin yeast infection Apply topically 3 (three) times a day 15 g 08/05/20 24 025 Discontinued Encounters Date Type Department Care Team Description 03/12/2025 11:00 AM EDT Procedure Visit [facility] OB [address] [place] [phone] Kit Batres DO LGSIL of cervix of undetermined significance; Well woman exam with routine gynecological exam 03/12/2025 Narcisa flowsheet [facility] [address] [place] [address] Kit Batres DO from Last 3 Months Family History Medical History Relation Name Comments Heart disease Maternal Grandfather Mental illness Mother Diabetes Paternal Grandmother Relation Name Status Comments Brother Alive Maternal Grandfather Mother Paternal Grandmother Sister Alive Son Alive Social History Tobacco Use Types Packs/Day Years Used Date Smoking Tobacco: Never Smokeless Tobacco: Never Tobacco Cessation:Counseling Given: Not Answered Alcohol Use Standard Drinks/Week Comments Yes 0 (1 standard drink = 0.6 oz pur e alcohol) Occasional alcohol use Comments Unknown Sex and Gender Information Value Date Recorded Sex Assigned at Not on file Legal Sex Female 11:47 PM EDT Gender Identity Not on file Sexual Orientation Not on file Last Filed Vital Signs Vital Sign Reading Time Taken Comments Blood Pressure 120/80 09/11/2024 12:18 PM EST Pulse - - Temperature - - Respiratory Rate - - Oxygen Saturation - - Inhaled Oxygen Concentration - - Weight 70.5 kg (155 lb 6.4 oz) 09/11/2024 12:18 PM EST Height 157.5 cm (5' 2 ) 01/15/2023 12:00 PM EDT Body Mass Index 28.42 01/15/2023 12:00 PM EDT Plan of Treatment Upcoming Encounters Date Type Department Care Team (Late st Contact Info) Description 08/11/2025 2:00 PM EST Office Visit [facility] [place] [employer] [place] [phone] Kit Batres DO [employer] [place] [address] 09/29/2025 10:00 AM EST Office Visit [facility] [place] [employer] [place] [phone] Kit Batres DO [address] [place], [place] [id number] Insurance [facility] [place] Care Teams Ticket Chopper Assembler Relationship Specialty Start Date End Date Martha Pal MD [address], [place] [address] PCP - General Family Medicine 07/31/23
--- OUTSIDE RECORDS SUMMARY | 2025-03-12 14:58 | XMS_ITS | Encounter Summary ---
Author Organization [facility] Address [address] [facility] [place] [place] [address] Care Team Providers Care Trailer Body Assembler Name Role Phone Martha Pal MD Primary Care Provider [phone] Encounter Details Date Type Department Care Team (Late st Contact Info) Description 03/12/2025 Bamboo flowsheet [facility] OB [address] [place] [address] Kit Batres, DO [address] [place], [id number] Social History Tobacco Use Types Packs/Day Years [...] 08/11/2025 2:00 PM EST Office Visit [facility] [address] [place] [address] Kit Batres, DO [address] [place] [address] 09/29/2025 10:00 AM EST Office Visit [facility] [address] Kit Batres, DO [address] [place], [id number] documented as of this encounter Visit Diagnoses Not on filedocumented in this encounter Care Teams Trailer Body Assembler Relationship Specialty Start Date End Date Martha Pal MD [address] [facility] [address] [facility] [address] [facility] [address], [place] [address] PCP - General Family Medicine 07/31/23 documented as of this encounter
--- OUTSIDE RECORDS SUMMARY | 2025-03-12 14:58 | XMS_ITS | Encounter Summary ---
Author Organization [facility] Address [id number] [address] [place] [address] Care Team Providers Care Scrub Woman Name Role Phone PalMartha APRN-CARGO AGENT Primary Care Provider Reason for Visit * Reason Onset Date Comments Results 03/06/2025 Encounter Details Date Type Department Care Team (Late st Contact Info) Description 03/06/2025 Telephone [facility] Family [facility] [address] [place] [address] [place] [address] Chanelle Underwood CNA Results Social History Tobacco Use Types Packs/Day Years [...] on file documented as of this encounter Miscellaneous Notes * Telephone Encounter - Chanelle Underwood CNA - 03/06/2025 1:58 PM EDT Attempted to call patient with no answer. Left voicemail to call office. ----- Message from CHUY Amaya sent at 03/02/2025 6:29 PM EDT ----- Labs are WNL ----- Message ----- From: Lab, Background User Sent: 02/24/2025 6:10 PM EDT To: CHUY Amaya documented in this encounter Plan of Treatment Not on file documented as of this encounter Visit Diagnoses Not on filedocumented in this encounter Additional Health Concerns Assessment Noted Time PHQ-9 Depression Total Score: 6 05/01/20 24 3:22 PM EDT documented as of this encounter Care Teams Scrub Woman Relationship Specialty Start Date End Date Martha Pal APRN-CNP [address] [place] [phone] PCP - General Family Medicine 02/24/25 documented as of this encounter
--- OUTSIDE RECORDS SUMMARY | 2025-03-12 14:58 | XMS_ITS | Encounter Summary ---
Author Organization [facility] Address [facility]-[id number] [address] [place] [address] Care Team Providers Care Government Contracts Manager Name Role Phone Martha Pal COMMUNITY SERVICE ORGANIZATION DIRECTOR-ICT SUPPORT ENGINEER Primary Care Provider Encounter Details Date Type Department Care Team (Late st Contact Info) Description 07/19/2023 Orders Only [facility] Internal Medicine/Pediatrics [address] [phone] Martha Pal APRN-ICT SUPPORT ENGINEER [address] [place] [phone] Social History Tobacco Use Types Packs/Day Years Used Date Smoking Tobacco: Never Smokeless Tobacco: Never Alcohol Use Standard Drinks/Week Comments No 0 (1 standard drink = 0.6 oz pur e alcohol) PHQ-2 Answer Date Recorded Total Score 16 06/20/2023 Childcare Answer Date Recorded Childcare Unknown 03/05/2019 Employment Answer Date Recorded Employment Unknown 03/05/2019 Purpose - Life Answer Date Recorded Purpose and direction in life Unknown Comments No Sex and Gender Information Value Date Recorded Sex Assigned at Not on file Legal Sex Female 12:11 PM EDT Gender Identity Not on file Sexual Orientation Not on file documented as of this encounter Plan of Treatment Not on file documented as of this encounter Visit Diagnoses Not on filedocumented in this encounter Additional Health Concerns Assessment Noted Time PHQ-9 Depression Total Score: 16 06/20/2 023 3:34 PM EDT documented as of this encounter Care Teams Government Contracts Manager Relationship Specialty Start Date End Date Martha Pal APRN-CNP [address], [place] [address] PCP - General Family Medicine 02/24/25 documented as of this encounter
--- OUTSIDE RECORDS SUMMARY | 2025-03-12 14:58 | XMS_ITS | Encounter Summary ---
Author Organization [facility] Address [id number] [address] [place] [address] Care Team Providers Care Quality Facilitator Name Role Phone Martha Pal APRN-CORPORATE DEVELOPMENT ANALYST Primary Care Provider Encounter Details Date Type Department Care Team (Latest Contact Info) Description 03/06/2025 Travel Social History Tobacco Use Types Packs/Day Years [...] documented as of this encounter Care Teams Quality Facilitator Relationship Specialty Start Date End Date Martha Pal APRN-SHERRON [address] [place] [address], [place] [phone] PCP - General Family Medicine 02/24/25 documented as of this encounter
--- OUTSIDE RECORDS SUMMARY | 2025-03-12 14:58 | XMS_ITS | Encounter Summary ---
Author Organization [facility] Address [id number] [address] [place] [address] Care Team Providers Care Book Packer Name Role Phone Martha Pal KWAKU-STUD SHEEP FARMER Primary Care Provider Encounter Details Date Type Department Care Team (Late st Contact Info) Description 04/24[facility]2024 [facility] [address] [place] [address] [place] [address] Elodia Kumar CMA Social History Tobacco Use Types Packs/Day Years Used Date Smoking Tobacco: Never Smokeless Tobacco: Never Alcohol Use Standard Drinks/Week Comments No 0 (1 standard drink = 0.6 oz pur e alcohol) PHQ-2 Answer Date Recorded Total Score 8 01/24/2024 Childcare Answer Date Recorded Childcare Unknown 03/05/2019 Employment Answer Date Recorded Employment Unknown 03/05/2019 Hunger Screening Answer Date Recorded Within the past 12 months we worried whether our food would run out before we got money to buy more. Never True 08/12/2023 Within the past 12 months th e food we bought just didn't last and we didn't have money to get more. Never True 08/12/2023 Purpose - Life Answer Date Recorded Purpose and direction in life Unknown Comments No Sex and Gender Information Value Date Recorded Sex Assigned at Not on file Legal Sex Female 12:11 PM EDT Gender Identity Not on file Sexual Orientation Not on file documented as of this encounter Miscellaneous Notes * Telephone Encounter - Elodia Kumar CMA - 04/24/2024 11:36 AM EDT ----- Message from CHUY Amaya sent at 04/24/2024 6:29 AM EDT ----- RANJIT is negative. CRP is slightly elevated, I would like to recheck this at a later time. Saravia had inflammation to her bites, is that still ongoing or is it improving? * Telephone Encounter - Elodia Kumar CMA - 04/24/2024 11:36 AM EDT Called patient to let her know about results, she verbalized that the inflammation is not has bad for her bites, she is till having issues with her hands,still having some swelling and what looks like could be hives not sure. * Telephone Encounter - CHUY Amaya - 04/24/2024 11:36 AM EDT I talked to patient on mychart. She will apply the steroid cream to has to her hands. Thank you. documented in this encounter Plan of Treatment Not on file documented as of this encounter Visit Diagnoses Not on filedocumented in this encounter Additional Health Concerns Assessment Noted Time PHQ-9 Depression Total Score: 8 01/24/20 24 1:26 PM EDT documented as of this encounter Care Teams Book Packer Relationship Specialty Start Date End Date Martha Pal APRN-CNP [address] [place] [phone] PCP - General Family Medicine 02/24/25 documented as of this encounter
--- OUTSIDE RECORDS SUMMARY | 2025-03-12 14:59 | XMS_ITS | Encounter Summary ---
Author Organization [facility] Address [address] [facility] [place] [address] Care Team Providers Care Personal Banker Name Role Phone Martha Pal MD Primary Care Provider [phone] Encounter Details Date Type Department Care Team (Late Contact Info) Description 09/12/2024 Abstract [facility] [address] [place] [address] Kit Batres, DO [address], [id number] Social History Tobacco Use Types Packs/Day Years [...] 08/11/2025 2:00 PM EST Office Visit [facility] [address] [place] [address] Kit Batres, DO [address], [id number] 09/29/2025 10:00 AM EST Office Visit [facility] OB [facility] [place] [address] Kit Batres, DO [address], [id number] documented as of this encounter Visit Diagnoses Not on filedocumented in this encounter Care Teams Personal Banker Relationship Specialty Start Date End Date Martha Pal MD [address] [facility] [address] [facility] [address], [place] [address] PCP - General Family Medicine 07/31/23 documented as of this encounter
--- OUTSIDE RECORDS SUMMARY | 2025-03-12 15:09 | XMS_ITS | CCD ---
Author Organization [facility] Care Team Providers Care Wood Floor Refinisher Name Role Phone DR JIE BATRES Attending Unavailable GISEL, DR CERON Consulting Unavailable GISEL, DR CERON Admitting Unavailable WATERMAN, EH Referring Unavailable WATERMAN, EH Primary Care Unavailable Demarco AMOR, Eh Primary Care Provider JIE BATRES Attending Unavailable JIE BATRES Attending Unavailable Waterman SALES AGENT FOOD VENDING SERVICE-BEEF CATTLE GRAZIER, Eh Primary Care Provider Waterman SALES AGENT FOOD VENDING SERVICE-BEEF CATTLE GRAZIER, Eh Primary Care Provider Waterman SALES AGENT FOOD VENDING SERVICE-BEEF CATTLE GRAZIER, Eh Primary Care Provider WATERMAN, EH Referring Unavailable WATERMAN, EH Primary Care Unavailable WATERMAN, EH Referring Unavailable WATERMAN, EH Primary Care Unavailable WATERMAN, EH Referring Unavailable WATERMAN, EH Primary Care Unavailable Waterman SALES AGENT FOOD VENDING SERVICE-BEEF CATTLE GRAZIER, Eh Primary Care Provider WATERMAN, EH Attending Unavailable WATERMAN, EH Referring [...] Referring Unavailable WATERMAN, EH Primary Care Unavailable EH WATERMAN Attending Unavailable EH WATERMAN Referring Unavailable EH WATERMAN Primary Care Unavailable Allergies Allergy Classification Reported Allergen(s) Allergy Type Date of Onset Reaction(s) Facility (1 source) peanut allergenic extract Drug Allergy 10-07-2013 [facility] Medications Current Medications Medication Drug Class(es) Dates Sig (Normalized) Sig (Original) acetaminophen 500 mg oral tablet (2 sources) Start: 03-06-2025 take 2 tablets by mouth every six hours as needed for pain acetaminophen (TYLENOL EXTRA STRENGTH) 500 mg tablet Take 2 tablets (1,000 mg total) by mouth every 6 (six) hours as needed for pain. 100 tablet 2 03/06/2025 Active amitriptyline hydrochloride 25 mg oral tablet (3 sources) Tricyclic Antidepressant Start: 03-06-2025 take 1 tablet by mouth once daily amitriptyline (ELAVIL) 25 mg tablet Take 1 tablet (25 mg total) by mouth nightly. 30 tablet 2 03/06/2025 Active Start: 02-12-2025 End: 03-06-2025 take 1 tablet by mouth once daily amitriptyline (ELAVIL) 10 mg tablet Indications: Herpes zoster without complication Take 1 tablet (10 mg total) by mouth nightly. 14 tablet 02/12/2025 03/06/2025 Discontinued (Alternate therapy) cholecalciferol 1.25 mg oral capsule (2 sources) Vitamin D Start: 02-12-2025 take 1 capsule by mouth every week cholecalciferol (VITAMIN D3) 50,000 units capsule Take 1 capsule (50,000 Units total) by mouth once a week. 8 capsule 02/12/2025 Active citric acid 0.01 mg/mg / lactic acid 0.018 mg/mg / potassium bitartrate 0.004 mg/mg vaginal gel (14 sources) Calculi Dissolution Agent, Anti-coagulant Start: 05-01-2024 End: 06-18-2024 lactic udvo-tcxpni-aedopash m (PHEXXI) 1.8-1-0.4 % gel Indications: Encounter for other contraceptive management Insert 1 Application into the vagina as needed (with intercourse). 5 g 3 06/18/2024 Active gabapentin 400 mg oral capsule (2 sources) Anti-epileptic Agent Start: 03-06-2025 take 1 capsule by mouth three times daily gabapentin (NEURONTIN) 400 mg capsule Indications: Herpes zoster without complication Take 1 capsule (400 mg total) by mouth 3 (three) times a day. 90 capsule 2 03/06/2025 Active ibuprofen 600 mg oral tablet (20 sources) Nonsteroidal Anti-inflammatory Drug Start: 08-12-2023 End: 03-06-2025 take 1 tablet by mouth in the morning, then take 1 tablet by mouth at mealtime ibuprofen (MOTRIN) 600 mg tablet Take 1 tablet (600 mg total) by mouth in the morning and 1 tablet (600 mg total) in the evening. Take with meals. 60 tablet 03/06/2025 Active ketotifen 0.25 mg/ml ophthalmic solution (20 sources) Histamine-1 Receptor Inhibitor Start: 05-18-2023 End: 10-09-2024 take 1 drop(s) into the eye(s) in the morning ALAWAY 0.025 % (0.035 %) ophthalmic solution Administer 1 drop to both eyes in the morning and 1 drop before bedtime. 10 mL 6 10/09/2024 Active ammonium lactate 120 mg/ml topical lotion (6 sources) Start: 07-31-2024 ammonium lactate (LAC-HYDRIN) 12 % lotion Apply 1 Application topically as needed for dry skin. 400 g 1 07/31/2024 Active nystatin 100 unt/mg topical powder (10 sources) Polyene Antifungal Start: 10-09-2024 nystatin (MYCOSTATIN) powder Apply 1 Application topically in the morning and 1 Application before bedtime. 60 g 2 10/09/2024 Active Start: 08-05-2024 End: 08-05-2025 nystatin (Mycostatin) 939927 UNIT/GM powder Indications: Skin yeast infection Apply topically 3 (three) times a day 15 g 08/05/2024 08/05/2025 Active Start: 07-31-2024 End: 08-07-2024 nystatin (MYCOSTATIN) cream Apply 1 Application topically in the morning and 1 Application before bedtime. Do all this for 7 days. 60 g 1 07/31/2024 08/07/2024 Active nystatin 144504 unt/ml / triamcinolone acetonide 1 mg/ml topical cream (4 sources) Polyene Antifungal, Corticosteroid Start: 10-09-2024 nystatin-triamcinolone (MYCOLOG II) cream Apply 1 Application topically in the morning and 1 Application at noon and 1 Application in the evening and 1 Application before bedtime. 120 g 4 10/09/2024 Active sertraline 50 mg oral tablet (20 sources) Serotonin Reuptake Inhibitor Start: 06-20-2023 End: 09-02-2024 take 1 tablet by mouth in the morning sertraline (Zoloft) 50 MG tablet Take 50 mg by mouth in the morning. 06/20/2023 Active traZODone hydrochloride 50 mg oral tablet (20 sources) Serotonin Reuptake Inhibitor Start: 04-10-2024 End: 01-07-2025 take 2 tablets by mouth at bedtime traZODone (Desyrel) 50 MG tablet Take 100 mg by mouth at bedtime 08/27/2024 Active Start: 12-13-2023 End: 04-10-2024 take 1 tablet by mouth once daily traZODone (DESYREL) 50 mg tablet take 1 tablet by mouth nightly 30 tablet 03/24/2024 04/10/2024 Discontinued (Reorder) Completed/Discontinued Medications Medication Drug Class(es) Dates Sig (Normalized) Sig (Original) cyclobenzaprine hydrochloride 10 mg oral tablet (4 sources) Muscle Relaxant Start: 08-12-2023 End: 01-24-2024 take 1 tablet by mouth three times daily as needed for muscle spasms cyclobenzaprine (FLEXERIL) 10 mg tablet Take 1 tablet (10 mg total) by mouth 3 (three) times a day as needed for muscle spasms. 30 tablet 08/12/2023 01/24/2024 Discontinued (Therapy completed) etonogestrel-ethinyl estradiol (EnilloRing) 0.12-0.015 MG/24HR vaginal ring (3 sources) Start: 03-24-2024 End: 08-05-2024 etonogestrel-ethinyl estradiol (EnilloRing) 0.12-0.015 MG/24HR vaginal ring Indications: control counseling insert 1 ring vaginally for 3 weeks REMOVE for 1 week and repeat 1 each 3 03/24/2024 08/05/2024 Discontinued fluticasone propionate 0.05 mg/actuat metered dose nasal spray (18 sources) Corticosteroid Start: 07-25-2023 End: 07-31-2024 take 2 spray(s) nasal route in the morning fluticasone propionate (FLONASE) 50 mcg/actuation nasal spray Administer 2 sprays into each nostril in the morning. 15.8 mL 07/25/2023 07/31/2024 Discontinued (Therapy completed) HALOETTE 0.12-0.015 mg/24 hr vaginal ring (12 sources) Start: 04-05-2023 End: 05-01-2024 HALOETTE 0.12-0.015 mg/24 hr vaginal ring Insert 1 each into the vagina every 28 days. 04/05/2023 05/01/2024 Discontinued (Patient Stopped On Own) Start: 04-05-2023 HALOETTE 0.12- 0.015 mg/24 hr vaginal ring Insert 1 each into the vagina every 28 days. 04/05/2023 Active Start: 04-05-2023 HALOETTE 0.12- 0.015 mg/24 hr vaginal ring Insert 1 each into the vagina every 28 days. 0 04/05/2023 Active magnesium oxide 400 mg oral tablet (7 sources) Start: 05-01-2024 End: 07-31-2024 take 1 tablet by mouth in the morning magnesium oxide (MAGOX) 400 mg tablet Take 1 tablet (400 mg total) by mouth in the morning. 30 tablet 2 05/01/2024 07/31/2024 Discontinued (Therapy completed) triamcinolone acetonide 0.005 mg/mg topical ointment (14 sources) Corticosteroid Start: 04-07-2024 End: 07-31-2024 triamcinolone (KENALOG) 0.5 % ointment Apply 1 Application topically in the morning and 1 Application before bedtime. 30 g 1 05/01/2024 07/31/2024 Discontinued (Therapy completed) Problems Active Problems Problem Classification Problem Date Documented Date Episodic/Chronic Anxiety disorders (20 sources) Anxiety; Translations: [Anxiety disorder, unspecified] Onset: 06-20-2023 06-20-2023 Chronic Cancer of cervix (1 source) Cervical intraepithelial neoplasia grade 1; Translations: [Low grade squamous intraepithelial lesion on cytologic smear of cervix (LGSIL)] 09-11-2024 Episodic Immunizations and screening for infectious disease (1 source) Encounter for screening for human papillomavirus (HPV); Translations: [ENC SCREENING HUMAN PAPILLOMAVIRUS] Onset: 04-12-2022 Episodic Mood disorders (20 sources) Dysthymic disorder; Translations: [Dysthymic disorder] Onset: 06-20-2023 06-20-2023 Chronic Nonmalignant breast conditions (1 source) Galactorrhea not associated with childbirth; Translations: [Galactorrhea not associated with childbirth] Onset: 02-24-2025 Episodic Other nutritional; endocrine; and metabolic disorders (1 source) Body mass index (BMI) 33.0-33.9, adult; Translations: [Body mass index (BMI) 33.0-33.9, adult] Onset: 01-24-2024 Chronic Other nutritional; endocrine; and metabolic disorders (1 source) Body mass index 30+ - obesity; Translations: [Body mass index (BMI) 33.0-33.9, adult] 01-24-2024 Chronic Other nutritional; endocrine; and metabolic disorders (1 source) Severe obesity; Translations: [Morbid (severe) obesity due to excess calories] 02-17-2024 Chronic Other nutritional; endocrine; and metabolic disorders (1 source) Abnormal weight gain; Translations: [Abnormal weight gain] Onset: 01-24-2024 Episodic Residual codes; unclassified (1 source) Family history of diabetes mellitus; Translations: [Family history of diabetes mellitus] Onset: 01-24-2024 Episodic Residual codes; unclassified (3 sources) Insomnia; Translations: [Insomnia, unspecified] 10-09-2024 Episodic Unclassified (1 source) Wellness Onset: 10-09-2024 Viral infection (2 sources) Herpes zoster; Translations: [Zoster without complications] Onset: 03-06-2025 03-06-2025 Episodic Past or Other Problems Problem Classification Problem Date Documented Date Episodic/Chronic Allergic reactions (1 source) Contact dermatitis; Translations: [Unspecified contact dermatitis, unspecified cause] 05-10-2024 Episodic Contraceptive and procreative management (3 sources) Contraception status; Translations: [Encounter for initial prescription of contraceptives, unspecified] Onset: 05-01-2024 05-01-2024 Episodic Malaise and fatigue (3 sources) Fatigue; Translations: [Other fatigue] Onset: 04-22-2024 04-10-2024 Episodic Mood disorders (20 sources) Mood disorders Onset: 06-20-2023 Resolved: 05-01-2024 05-01-2024 Mycoses (6 sources) Candidiasis of skin; Translations: [Candidiasis of skin and nail] Onset: 10-09-2024 08-05-2024 Episodic Other aftercare (3 sources) Patient encounter status; 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] 01-24-2024 Episodic Other connective tissue disease (1 source) Pain in lower limb; Translations: [Pain in left leg] 01-29-2024 Episodic Other connective tissue disease (1 source) Cramp; Translations: [Cramp and spasm] 01-29-2024 Episodic Other non-traumatic joint disorders (2 sources) Multiple joint pain; Translations: [Pain in unspecified joint] 04-10-2024 Episodic Other non-traumatic joint disorders (1 source) Pain in unspecified joint; Translations: [Pain in unspecified joint] Onset: 04-22-2024 Episodic Other nutritional; endocrine; and metabolic disorders (1 source) Weight gain; Translations: [Abnormal weight gain] 01-24-2024 Episodic Other screening for suspected conditions (not mental disorders or infectious disease) (7 sources) Encounter for screening for malignant neoplasm of cervix; Translations: [Encounter for screening for lipoid disorders] Onset: 04-11-2022 Episodic Other skin disorders (2 sources) Skin irritation ; Translations: [Other skin changes] 04-14-2024 Episodic Other skin disorders (1 source) Xeroderma; Translations: [Xerosis cutis] 07-31-2024 Episodic Other skin disorders (1 source) Other skin changes; Translations: [Other skin changes] Onset: 04-22-2024 Episodic Residual codes; unclassified (1 source) Family history of diabetes mellitus; Translations: [Family history of diabetes mellitus] 01-24-2024 Episodic Residual codes; unclassified (3 sources) Maternal history of systemic lupus erythematosus; Translations: [Family history of other diseases of the musculoskeletal system and connective tissue] 04-10-2024 Episodic Residual codes; unclassified (2 sources) Family history of other diseases of the musculoskeletal system and connective tissue; Translations: [Family history of other diseases of the musculoskeletal system and connective tissue] Onset: 07-30-2024 Episodic Residual codes; unclassified (1 source) Insomnia, unspecified; Translations: [Insomnia, unspecified] Onset: 07-31-2024 Episodic Unclassified (2 sources) Persistent depressive disorder 07-31-2024 Results Test Name Value Interpretation Reference Range Facility PROLACTINon 02-24-2025 PROLACTIN 10.1 ng/mL Normal 3.3-26.7 [facility] Comment on above: Performed By: #### P ROL #### [facility] ([facility]) [address] [place] [address] VIR TSH WITH REFLEXon 02-24-2025 TSH 1.07 uIU/mL Normal 0.49-4.67 [facility] Comment on above: Performed By: #### T SHR #### [facility] ([facility]) [address] [place] [address] VIR COMPREHENSIVE METABOLIC PANE Deonte 02-05-2025 Albumin [Mass/Vol] 4.3 g/dL Normal 3.2-5.3 [facility] Comment on above: Performed By: #### C MP #### [facility] ([facility]) [address] [place] [address] VIR ALP [Catalytic activity/Vol] 54 U/L Normal 39-130 [facility] Comment on above: Performed By: #### C MP #### [facility] ([facility]) [address] [place] [address] VIR ALT [Catalytic activity/Vol] 17 U/L Normal <=31 [facility] Comment on above: Performed By: #### C MP #### [facility] ([facility]) [address] [place] [address] VIR Anion gap [Moles/Vol] 8 mmol/L Normal 5-15 [facility] Comment on above: Performed By: #### C MP #### [facility] ([facility]) [address] [place] [address] VIR AST [Catalytic activity/Vol] 20 U/L Normal <=41 [facility] Comment on above: Performed By: #### C MP #### [facility] ([facility]) [address] [place] [address] VIR Bilirubin [Mass/Vol] 0.3 mg/dL Normal 0.3-1.2 [facility] Comment on above: Performed By: #### C MP #### [facility] ([facility]) [address] [place] [address] VIR Calcium [Mass/Vol] 9.1 mg/dL Normal 8.5-10.5 [facility] Comment on above: Performed By: #### C MP #### [facility] ([facility]) [address] [place] [address] VIR Chloride [Moles/Vol] 109 mmol/L Normal 98-109 [facility] Comment on above: Performed By: #### C MP #### [facility] ([facility]) [address] [place] [address] VIR CO2 [Moles/Vol] 23 mmol/L Normal 22-32 [facility] Comment on above: Performed By: #### C MP #### [facility] ([facility]) [address] [place] [address] VIR Creatinine [Mass/Vol] 1.07 mg/dL High 0.40-1.00 [facility] Comment on above: Result Comment: METH OD TRACEABLE TO IDMS STANDARD Performed By: #### C MP #### [facility] ([facility]) [address] [place] [address] VIR GFR/1.73 sq M.predicted among non-blacks MDRD (S/P/Bld) [Vol rate/Area] 71 mL/min/{1.73_m2} Normal >=60 [facility] Comment on above: Result Comment: Repo rted eGFR is based on the CKD-EPI 2020 equation that does not use a race coefficient. Performed By: #### C MP #### [facility] ([facility]) [address] [place] [address] VIR Glucose [Mass/Vol] 85 mg/dL Normal 65-99 [facility] Comment on above: Performed By: #### C MP #### [facility] ([facility]) [address] [place] [address] VIR Potassium [Moles/Vol] 4.0 mmol/L Normal 3.5-5.0 [facility] Comment on above: Performed By: #### C MP #### [facility] ([facility]) [address] [place] [address] VIR Protein [Mass/Vol] 7.2 g/dL Normal 6.0-8.0 [facility] Comment on above: Performed By: #### C MP #### [facility] ([facility]) [address] [place] [address] VIR Sodium [Moles/Vol] 140 mmol/L Normal 134-146 [facility] Comment on above: Performed By: #### C MP #### [facility] ([facility]) [address] [place] [address] VIR Urea nitrogen [Mass/Vol] 16 mg/dL Normal 5-23 [facility] Comment on above: Performed By: #### C MP #### [facility] ([facility]) [address] [place] [address] VIR HEMOGLOBIN A1Con 02-05-2025 Glucose [Mass/Vol] 100 mg/dL Normal [facility] Comment on above: Performed By: #### H A1C #### [facility] ([facility]) [address] [place] [address] VIR HbA1c (Bld) [Mass fraction] 5.1 % Normal 4.4-5.6 [facility] Comment on above: Result Comment: ADA Guidelines Result HgbA1c Normal : less than 5.7 % Prediabetes : 5.7 % to 6.4 % Diabetes : > 6.4 % Use with caution in patients with abnormal hemoglobin variants as the half-life of red blood cells and in vivo glycation rates are affected. Performed By: #### H A1C #### [facility] ([facility]) [address] [place] [address] VIR VITAMIN D 25 HYDROXYon 02-05 VITAMIN D 25 HYD TOT 19.5 ng/mL Low 30.0-100.0 [facility] Comment on above: Order Comment: Vitam in D status 25 [place] Vitamin D Deficiency <20 ng/mL Insufficiency 20-29 ng/mL Sufficiency 30-100 ng/mL Toxicity >100 ng/mL NOTE: A pediatric reference range has not been established by the bonsai culturist of this kit. The [place] [employer] recommends a Vitamin D level of = or >20ng/mL in infants and children. Performed By: #### V ITD #### [facility] ([facility]) [address] [place] [address] VIR Colposcopyon 09-11-2024 Мария Carrera LPN 09/14/2024 11:37 [...] paperwork completed: yes Educational handouts given: yes [facility] ColposcopyOrdered By: Мария Carrera on 09-11-2024 [facility] HCG ( test) Ql (U)o n 09-11-2024 Interpretation and review of laboratory results Abnormal [facility] Preg Test, Ur Negative Negative [facility] IGP,APTIMA HPV,AGE GDLNon AGE GDLN ACOG TESTING Note . [facility] Comment on above: TESTS RESULT FLAG UN ITS REF RANGE LAB Clinician Provided Cytology Information Source.............Cervix;Endocervix No. of containers..01 ThinPrep Vial Age Algo ACOG Sarah... FLAG LEGEND: L-Low Normal,H-High Normal,LL-Alert Low,HH-Alert High <-Panic Low,>-Panic High,A-Abnormal,AA-Critical Abnormal Performed at: 01 = [employer] [address] Dulce Pham MD, HPV APTIMA Positive Abnormal Negative [facility] Comment on above: This nucleic acid am plification test detects fourteen high- risk HPV types (16,18,31,33,35,39,45,51,52,56,58,59,66,68) without differentiation. Performed at: =[facility] [employer] [id number] Floor Tech: Dulce Pham MD, Phone: [phone] Performed at: [facility] [address] [place], [place] [id number] Floor Tech: Alfred Carlson MD, Phone: [phone] IGP, BENJAMIN HPV, RFX 16/18,45 Note Abnormal . [facility] Comment on above: TESTS RESULT FLAG UN ITS REF RANGE LAB DIAGNOSIS: [A] 02 EPITHELIAL CELL ABNORMALITY. LOW GRADE SQUAMOUS INTRAEPITHELIAL LESION (LSIL). Recommendation: [A] 02 Suggest follow up as clinically appropriate. Specimen adequacy: 02 Satisfactory for evaluation. Endocervical and/or squamous metaplastic cells (endocervical component) are present. Performed by: Ivette Trujillo, Body Shop Estimator (ASCP) Electronically si... 02 Rosalba Fuller MD, [...] High,A-Abnormal,AA-Critical Abnormal Performed at: 02 [facility] [address] [address] [place] [address] Alfred Carlson MD, 03 WB [facility] [address] [address] Dulce Pham MD, Interpretation and review of laboratory results Abnormal [facility] CRP [Mass/Vol]on 05-23-2024 C REACTIVE PROTEIN 0.4 mg/dL Normal 0.000-0.744 [facility] Comment on above: Performed By: #### 1 988-5 #### [facility] ([id number]) [address] [place] [address] CBC AND AUTO DIFFon 04-22-20 ABSOLUTE BASOPHIL 0.1 X10E9/L Normal 0.0-0.2 [facility] Comment on above: Performed By: #### C JANIE, 30282-9, 1988-01, 66185-6 #### [facility] ([id number]) [address] [place] [address] ABSOLUTE NEUTROPHIL 3.8 X10E9/L Normal 1.5-6.6 [facility] Comment on above: Performed By: #### Rajesh LIMA, 32170-7, 1988-01, 15677-8 #### [facility] ([id number]) [address] [place] [address] Basophils/100 WBC (Bld) 0.7 % Normal [facility] Comment on above: Performed By: #### Rajesh LIMA, 29911-5, 1988-01, 69336-3 #### [facility] ([id number]) [address] [place] [address] Eosinophils (Bld) [#/Vol] 0.3 10*3/uL Normal 0.0-0.4 [facility] Comment on above: Performed By: #### Rajesh LIMA, 49214-0, 1988-01, 72974-6 #### [facility] ([id number]) [address] [place] [address] Eosinophils/100 WBC (Bld) 4.1 % Normal [facility] Comment on above: Performed By: #### Rajesh LIMA, 70735-9, 1988-01, #### [facility] ([id number]) [address], [facility] [address] [place] [address] Erythrocyte distribution width (RBC) [Ratio] 13.2 % Normal 11.5-15.0 [facility] Comment on above: Performed By: #### Rajesh LIMA, 44933-9, 1988-01, #### [facility] ([id number]) [address] [place] [address] Hematocrit (Bld) [Volume fraction] 39.5 % Normal 35-47 [facility] Comment on above: Performed By: #### Rajesh LIMA, 75859-0, 1988-01, #### [facility] ([id number]) [address], [facility] [address] [place] [address] Hemoglobin (Bld) [Mass/Vol] 13.6 g/dL Normal 11.7-15.5 [facility] Comment on above: Performed By: #### Rajesh LIMA, 31391-6, 1988-01, #### [facility] ([id number]) [address], [facility] [address] [place] [address] Lymphocytes (Bld) [#/Vol] 2.6 10*3/uL Normal 1.0-3.5 [facility] Comment on above: Performed By: #### Rajesh LIMA, 33511-8, 1988-01, 66425-1 #### [facility] ([id number]) [address], [address] [place] [address] Lymphocytes/100 WBC (Bld) 37.5 % Normal [facility] Comment on above: Performed By: #### Rajesh LIMA, 58700-8, 1988-01, #### [facility] ([id number]) [address], [facility] [address] [place], [place] [address] MCH (RBC) [Entitic mass] 29.2 pg Normal 27-34 [facility] Comment on above: Performed By: #### Rajesh LIMA, , 1990-01, #### [facility] ([id number]) [address], [facility] [address] [place] [address] MCHC (RBC) [Mass/Vol] 34.3 g/dL Normal 32-36 [facility] Comment on above: Performed By: #### Rajesh LIMA, , 1990-01, #### [facility] ([id number]) [address], [address] [place] [address] MCV (RBC) [Entitic vol] 85 fL Normal 80-100 [facility] Comment on above: Performed By: #### Rajesh LIMA, , 1990-01, #### [facility] ([id number]) [address], [facility] [address] [place] [address] Monocytes (Bld) [#/Vol] 0.3 10*3/uL Normal 0-0.9 [facility] Comment on above: Performed By: #### Rajesh LIMA, , 1990-01, #### [facility] ([id number]) [address], [facility] [address] [place] [address] Monocytes/100 WBC (Bld) 3.9 % Normal [facility] Comment on above: Performed By: #### Rajesh LIMA, 95905-9, 1990-01, #### [facility] ([id number]) [address], [address] [place] [address] Neutrophils/100 WBC (Bld) 53.8 % Normal [facility] Comment on above: Performed By: #### Rajesh LIMA, 88080-6, 1990-01, 15841-8 #### [facility] ([id number]) [address], [address] [place] [address] Platelet mean volume (Bld) [Entitic vol] 8.5 fL Normal 7-12 [facility] Comment on above: Performed By: #### Rajesh LIMA, 19296-3, 1990-01, 75824-4 #### [facility] ([id number]) [address] [address] [place] [address] Platelets (Bld) [#/Vol] 284 10*3/uL Normal 150-450 [facility] Comment on above: Performed By: #### Rajesh LIMA, 76463-6, 1990-01, 03591-8 #### [facility] ([id number]) [address] [address] [place] [address] RBC COUNT 4.65 X10E12/L Normal 3.80-5.20 [facility] Comment on above: Performed By: #### Rajesh LIMA, 92725-7, 1990-01, 03534-2 #### [facility] ([id number]) [address] [address] [place] [address] WBC (Bld) [#/Vol] 7.0 10*3/uL Normal 4.0-11.0 [facility] Comment on above: Performed By: #### Rajesh LIMA, 29203-8, 1990-01, 86776-2 #### [facility] ([id number]) [address], [address] [place] [address] CRP [Mass/Vol]on 04-22-2024 C REACTIVE PROTEIN 2.8 mg/dL High 0.000-0.744 [facility] Comment on above: Performed By: #### C BCA, 85825-5, 1990-01, 22518-2 #### [facility] ([id number]) [address], [address] [place] [address] ESR Photometric method (Bld) [Velocity]on 04-22-2024 ESR, ERYTHROCYTE SEDIMENTATION RATE 9 mm/h Normal 0-20 [facility] Comment on above: Performed By: #### Rajesh BCA, 34822-5, 1990-01, 71532-1 #### [facility] ([id number]) [address] [facility] [address] [place] [address] Nuclear Ab IA Ql (S)on 04-22 RANJIT Screen w/reflex Negative Normal NEG [facility] Comment on above: Result Comment: Testing performed using multiplex flow immunoassay. Eleven different antigens associated with systemic autoimmune diseases (dsDNA,Sm,Sm/LOGGING SHOVEL OPERATOR,LOGGING SHOVEL OPERATOR,Chromatin, SSA,SSB,Stephanie-1,Scl70,Ribo P,Centromere B) are included in this screening test. Performed By: #### Rajesh BCA, 70373-2, 1990-01, 74400-0 #### [facility] ([id number]) [address], [address] [place] [address] HGB A1C (GLYCO-HGB)on 2023 Glucose [Mass/Vol] 94 mg/dL Normal [facility] Comment on above: Performed By: #### H A1C, 37886-4, TSHR #### [facility] ([id number]) [address], [address] [place] [address] HbA1c (Bld) [Mass fraction] 4.9 % Normal 4.4-5.6 [facility] Comment on above: Result Comment: NOTE ADA Guidelines Result HgbA1c Normal : less than 5.7 % Prediabetes : 5.7 % to 6.4 % Diabetes : > 6.4 % Use with caution in patients with abnormal hemoglobin variants as the half-life of red blood cells and in vivo glycation rates are affected. Performed By: #### H A1C, 55588-9, TSHR #### [facility] ([id number]) [address] [place] [address], [address] [place] [address] Hemoglobin A1con 01-24-2024 Average glucose Estimated from glycated hemoglobin (Bld) [Mass/Vol] 94 mg/dL [facility] HbA1c (Bld) [Mass fraction] 4.9 % 4.4 - 5.6 % [facility] Comment on above: NOTE ADA Guidelines Result HgbA1c Normal : less than 5.7 % Prediabetes : 5.7 % to 6.4 % Diabetes : > 6.4 % Use with caution in patients with abnormal hemoglobin variants as the half-life of red blood cells and in vivo glycation rates are affected. [facility] 1996 panelon Cholesterol [Mass/Vol] 141 mg/dL Low 150 - 200 mg/dL [facility] Cholesterol in HDL [Mass/Vol] 57 mg/dL 39 - PINF mg/dL [facility] Comment on above: HDL <40 mg/dL - High Risk HDL > or = 40mg/dL- Desirable HDL >60 mg/dL - Negative Risk Cholesterol in LDL [Mass/Vol] 60 mg/dL NINF - 130 mg/dL [facility] Comment on above: LDL <100 mg/dL - Desirable LDL >160 mg/dL - High Risk Cholesterol in VLDL [Mass/Vol] 24 mg/dL 0 - 30 mg/dL [facility] Cholesterol.total/Chol esterol in HDL [Mass ratio] 2.5 {ratio} 1.0 - 5.0 [facility] Interpretation and review of laboratory results Abnormal [facility] Triglyceride [Mass/Vol] 122 mg/dL 27 - 150 mg/dL [facility] Cholesterol [Mass/Vol] 141 mg/dL Low 150-200 [facility] Comment on above: Performed By: #### Michael A1C, 22054-6, TSHR #### [facility] ([id number]) [address], [address] [place] [address] Cholesterol in HDL [Mass/Vol] 57 mg/dL Normal >39 [facility] Comment on above: Result Comment: HDL <40 mg/dL - High Risk HDL > or = 40mg/dL- Desirable HDL >60 mg/dL - Negative Risk Performed By: #### Michael A1C, 80321-1, TSHR #### [facility] ([id number]) [address], [address] [place] [address] Cholesterol in LDL [Mass/Vol] 60 mg/dL Normal <130 [facility] Comment on above: Result Comment: LDL <100 mg/dL - Desirable LDL >160 mg/dL - High Risk Performed By: #### H A1C, 58238-5, TSHR #### [facility] ([id number]) [address], [address] [place] [address] Cholesterol in VLDL [Mass/Vol] 24 mg/dL Normal 0-30 [facility] Comment on above: Performed By: #### Michael A1C, 23852-6, TSHR #### [facility] ([id number]) [address] [place] [address] CHOLESTEROL:HDL 2.5 Normal 1.0-5.0 [facility] Comment on above: Performed By: #### H A1C, 90173-2, TSHR #### [facility] ([id number]) [address] [facility], [address] [place] [address] Triglyceride [Mass/Vol] 122 mg/dL Normal 27-150 [facility] Comment on above: Performed By: #### H A1C, 34628-1, TSHR #### [facility] ([id number]) [address] [facility] [place] [address] POCT EKGon 01-24-2024 [facility] TSH WITH REFLEXon 01-24-2024 TSH 1.20 uIU/mL Normal 0.49-4.67 [facility] Comment on above: Performed By: #### H A1C, 36269-1, TSHR #### [facility] ([id number]) [address] [facility], [address] [place] [address] TSH with Reflexon 01-24-2024 TSH Qn 1.20 m[IU]/L [facility] PAP ACOG PANEL 2: 21 to 29on 04-14-2022 . . [facility] Comment on above: Performed By: #### 4 [id number] #### [facility] [address] [address] [address] Vish Mohr Age Gdln ACOG Testing - [facility] Comment on above: Performed By: #### 4 [id number] #### [facility] [address] [address] [address] Vish Mohr DIAGNOSIS: Comment [facility] Comment on above: Result Comment: NEGA TIVE FOR INTRAEPITHELIAL LESION OR MALIGNANCY. Performed By: #### 4 [id number] #### [facility] [address] [address] [address] Vish Mohr Methodology: Comment [facility] Comment on above: Result Comment: This liquid based ThinPrep(R) pap test was screened with the use of an image guided system. Performed By: #### 4 [id number] #### [facility] [address] [place] [address] Dr. Vish Mohr Note: Comment Normal [facility] Comment on above: Result Comment: The Pap smear is a screening test designed to aid in the detection of premalignant and malignant conditions of the uterine cervix. It is not a diagnostic procedure and should not be used as the sole means of detecting cervical cancer. Both false-positive and false-negative reports do occur. . Performed By: #### 4 [id number] #### [facility] [address] [place] [address] Dr. Vish Mohr Performed by: Comment Normal [facility] Comment on above: Result Comment: Valentin Negron, Body Shop Estimator (ASCP) Performed By: #### 4 [id number] #### [facility] [address] [place] [address] Dr. Vish Mohr Reflex Criteria: Comment Normal [facility] Comment on above: Result Comment: The HPV DNA reflex criteria were not met with this specimen result therefore, no HPV testing was performed. . Performed By: #### 4 [id number] #### [facility] [address] [place] [address] Dr. Vish Mohr Specimen adequacy: Comment Normal [facility] Comment on above: Result Comment: Sati sfactory for evaluation. Endocervical and/or squamous metaplastic cells (endocervical component) are present. Performed By: #### 4 [id number] #### [facility] [address] [place] [address] Dr. Vish Mohr Vital Signs Date Time Vital Sign Value Performing Clinician Facility 10-09-2024 15:06-0500 Body height 144.8 cm Eh Waterman APRNTargazymeBEEF CATTLE GRAZIER Work Phone: [facility] 10-09-2024 15:06-0500 Body mass index (BMI) [Ratio] 34.57 kg/m2 Eh Waterman APRN-BEEF CATT[employer] GRAZIER Work Phone: [facility] 10-09-2024 15:06-0500 Body temperature 97.81 [degF] Eh Waterman SALES AGENT FOOD VENDING SERVICE-BEEF [employer]IER Work Phone: [facility] 10-09-2024 15:06-0500 Body weight 72.48 kg Eh Waterman SALES AGENT FOOD VENDING SERVICE-BEEF [employer]IER Work Phone: [facility] 10-09-2024 15:06-0500 Diastolic blood pressure 72 mm[Hg] Eh Waterman SALES AGENT FOOD VENDING SERVICE-BEE[employer]IER Work Phone: [facility] 10-09-2024 15:06-0500 Heart rate 88 /min Eh aWterman SALES AGENT FOOD VENDING SERVICE-BEEF [employer]IER Work Phone: [facility] 10-09-2024 15:06-0500 SaO2% (BldA) [Mass fraction] 97 % Eh Waterman APRN-BEEF CATTLE GRAZIER Work Phone: [facility] 10-09-2024 15:06-0500 Systolic blood pressure 128 mm[Hg] Eh Waterman APRN-BEEF CATTLE GRAZIER Work Phone: [facility] 09-11-2024 12:18-0500 Body mass index (BMI) [Ratio] 28.42 kg/m2 Jie Gisel DO Work Phone: [facility] 09-11-2024 12:18-0500 Body weight 70.49 kg Jie Gisel DO Work Phone: [facility] 09-11-2024 12:18-0500 Diastolic blood pressure 80 mm[Hg] Jie Gisel DO Work Phone: [facility] 09-11-2024 12:18-0500 Systolic blood pressure 120 mm[Hg] Jie Gisel DO Work Phone: [facility] 08-05-2024 13:27-0500 Body mass index (BMI) [Ratio] 29.59 kg/m2 Jie Gisel DO Work Phone: [facility] 08-05-2024 13:27-0500 Body weight 73.39 kg Jie Gisel DO Work Phone: [facility] 08-05-2024 13:27-0500 Diastolic blood pressure 70 mm[Hg] Jie Gisel DO Work Phone: [facility] 08-05-2024 13:27-0500 Systolic blood pressure 114 mm[Hg] Jie Gisel DO Work Phone: [facility] 07-31-2024 10:37-0500 Body mass index (BMI) [Ratio] 35 kg/m2 Eh Waterman SALES AGENT FOOD VENDING SERVICE-BEEF CATTLE GRAZIER Work Phone: [facility] 07-31-2024 10:37-0500 Body temperature 97.9 [degF] Eh Waterman SALES AGENT FOOD VENDING SERVICE-BEEF [employer]RA[employer]IER Work Phone: [facility] 07-31-2024 10:37-0500 Body weight 73.39 kg Eh Waterman SALES AGENT FOOD VENDING SERVICE-BEEF [employer]ATTLE GRA[employer]IER Work Phone: [facility] 07-31-2024 10:37-0500 Diastolic blood pressure 64 mm[Hg] Eh Waterman SALES AGENT FOOD VENDING SERVICE-BEEF [employer]ATT[employer] GRA[employer]IER Work Phone: [facility] 07-31-2024 10:37-0500 Heart rate 75 /min Eh Waterman SALES AGENT FOOD VENDING SERVICE-BEE[employer]IER Work Phone: [facility] 07-31-2024 10:37-0500 SaO2% (BldA) [Mass fraction] 97 % Eh Waterman SALES AGENT FOOD VENDING SERVICE-BEEF [employer]IER Work Phone: [facility] 07-31-2024 10:37-0500 Systolic blood pressure 116 mm[Hg] Eh Waterman SALES AGENT FOOD VENDING SERVICE-BEEF [employer]IER Work Phone: [facility] 05-01-2024 15:24-0400 Body height 144.8 cm Eh Waterman SALES AGENT FOOD VENDING SERVICE-BEE[employer]IER Work Phone: [facility] 05-01-2024 15:24-0400 Body mass index (BMI) [Ratio] 35.05 kg/m2 Eh Waterman SALES AGENT FOOD VENDING SERVICE-BEE[employer]ATT[employer] GRAZIER Work Phone: [facility] 05-01-2024 15:24-0400 Body temperature 98.2 [degF] Eh Waterman SALES AGENT FOOD VENDING SERVICE-BEEF [employer]ATT[employer] GRAZIER Work Phone: [facility] 05-01-2024 15:24-0400 Body weight 73.48 kg Eh Waterman SALES AGENT FOOD VENDING SERVICE-BEEF CATT[employer] GRA[employer]IER Work Phone: [facility] 05-01-2024 15:24-0400 Diastolic blood pressure 68 mm[Hg] Eh Waterman SALES AGENT FOOD VENDING SERVICE-BEEF [employer]IER Work Phone: [facility] 05-01-2024 15:24-0400 Heart rate 76 /min Eh Waterman SALES AGENT FOOD VENDING SERVICE-BEE[employer]IER Work Phone: [facility] 05-01-2024 15:24-0400 SaO2% (BldA) [Mass fraction] 97 % Eh Waterman SALES AGENT FOOD VENDING SERVICE-BEEF [employer]ATTLE GRAZIER Work Phone: [facility] 05-01-2024 15:24-0400 Systolic blood pressure 118 mm[Hg] Eh Waterman SALES AGENT FOOD VENDING SERVICE-BEE[employer]IER Work Phone: [facility] 01-24-2024 13:31-0400 Body height 144.8 cm Eh Waterman SALES AGENT FOOD VENDING SERVICE-BEE[employer]IER Work Phone: [facility] 01-24-2024 13:31-0400 Body mass index (BMI) [Ratio] 33.33 kg/m2 Eh Waterman SALES AGENT FOOD VENDING SERVICE-BEE[employer]ATT[employer]RAZIER Work Phone: [facility] 01-24-2024 13:31-0400 Body temperature 98.91 [degF] Eh Waterman SALES AGENT FOOD VENDING SERVICE-BEE[employer]RA[employer]IER Work Phone: [facility] 01-24-2024 13:31-0400 Body weight 69.85 kg Eh Waterman SALES AGENT FOOD VENDING SERVICE-BEEF [employer]ATTLE GRAZIER Work Phone: [facility] 01-24-2024 13:31-0400 Diastolic blood pressure 62 mm[Hg] Eh Waterman SALES AGENT FOOD VENDING SERVICE-BEE[employer]IER Work Phone: [facility] 01-24-2024 13:31-0400 Heart rate 71 /min Eh Waterman SALES AGENT FOOD VENDING SERVICE-BEE[employer]IER Work Phone: [facility] 01-24-2024 13:31-0400 SaO2% (BldA) [Mass fraction] 98 % Eh Waterman SALES AGENT FOOD VENDING SERVICE-BEEF CATTLE GRAZIER Work Phone: [facility] 01-24-2024 13:31-0400 Systolic blood pressure 116 mm[Hg] Eh Waterman SALES AGENT FOOD VENDING SERVICE-BEE[employer]RA[employer]IER Work Phone: [facility] Encounters Encounter Date Encounter Type Care Provider Facility Start: 03-12-2025 End: 03-12-2025 Bamboo flowsheet Jie Gisel DO Work Phone: [facility] Start: 03-12-2025 End: 03-12-2025 Bamboo flowsheet Jie Gisel DO Work Phone: [facility] Start: 03-06-2025 End: 03-06-2025 Telephone encounter Chanelle Underwood CNA [facility] Comment on above: Results Start: 03-06-2025 End: 03-06-2025 Office outpatient visit 15 minutes Eh Waterman SALES AGENT FOOD VENDING SERVICE-BEEF [employer]ATTLE GRAZIER Work Phone: [facility] Comment on above: Herpes zoster withou t complication Start: 03-06-2025 End: 03-06-2025 ambulatory [facility] Start: 02-24-2025 ambulatory [facility] Start: 02-12-2025 End: 02-12-2025 ambulatory [facility] Start: 02-05-2025 End: 02-05-2025 Patient encounter status Eh Watermna SALES AGENT FOOD VENDING SERVICE-BEE[employer]RAZIER Work Phone: [facility] Start: 02-05-2025 End: 02-05-2025 Clinical Support Eh Waterman SALES AGENT FOOD VENDING SERVICE-BEE[employer]RAZIER Work Phone: [facility] Comment on above: Wellness examination ; Skin candidiasis; Insomnia, unspecified type Start: 10-09-2024 End: 10-09-2024 Patient encounter status Eh Waterman SALES AGENT FOOD VENDING SERVICE-BEEF CATTLE GRAZIER Work Phone: [employer] [facility] Work Phone: Start: 10-09-2024 End: 10-09-2024 Periodic preventive med est patient 18-39 yrs Eh Waterman SALES AGENT FOOD VENDING SERVICE-BEEF CATTLE GRAZIER Work Phone: [facility] Comment on above: Wellness examination (Primary Dx); Insomnia, unspecified type; Skin candidiasis Start: 10-09-2024 End: 10-09-2024 ambulatory [facility] Start: 10-09-2024 Encounter for genera l adult medical examination without abnormal findings [facility] Start: 09-11-2024 End: 09-11-2024 Patient encounter procedure Jie Gisel DO Work Phone: [facility] Comment on above: 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 Start: 09-11-2024 End: 09-11-2024 ambulatory JIE GISEL Not Available Start: 09-02-2024 End: 09-02-2024 Refill Eh Waterman SALES AGENT FOOD VENDING SERVICE-BEE[employer]IER Work Phone: [facility] Comment on above: Persistent depressiv e disorder Start: 08-05-2024 End: 08-05-2024 Bamboo flowsheet Jie Gisel DO Work Phone: [facility] Start: 08-05-2024 End: 08-13-2024 Bamboo flowsheet Jie Gisel DO Work Phone: [facility] Start: 08-05-2024 End: 08-13-2024 Clinisync Result Encounter Jie Gisel DO Work Phone: [facility] Unsolicited Start: 08-05-2024 End: 08-05-2024 ambulatory JIE GISEL Not Available Start: 08-05-2024 End: 08-05-2024 Patient encounter procedure Jie Maco DO Work Phone: [facility] Work Phone: Start: 08-05-2024 End: 08-05-2024 Periodic preventive med est patient 18-39 yrs Jie Maco DO Work Phone: [facility] Comment on above: Well woman exam with routine gynecological exam; Skin yeast infection Start: 07-31-2024 End: 07-31-2024 Office outpatient visit 15 minutes Eh Waterman SALES AGENT FOOD VENDING SERVICE-B[employer] Work Phone: [facility] Comment on above: Insomnia, unspecifie d type (Primary Dx); Persistent depressive disorder; Dry skin; Skin candidiasis Start: 07-31-2024 End: 07-31-2024 ambulatory [facility] Start: 07-25-2024 End: 07-27-2024 Refill Eh Waterman SALES AGENT FOOD VENDING SERVICE-[employer] Work Phone: [facility] Start: 06-18-2024 End: 06-18-2024 Orders Only Eh Waterman SALES AGENT FOOD VENDING SERVICE-BEE[employer]IER Work Phone: [facility] Comment on above: Encounter for other contraceptive management (Primary Dx) Start: 06-12-2024 End: 06-12-2024 Orders Only Eh Waterman SALES AGENT FOOD VENDING SERVICE-BEEF [employer]IER Work Phone: [facility] Comment on above: Encounter for female control Start: 06-10-2024 End: 06-12-2024 Refill Eh Waterman SALES AGENT FOOD VENDING SERVICE-B[employer] Work Phone: [facility] Comment on above: Persistent depressiv e disorder Start: 05-27-2024 End: 05-27-2024 Telephone encounter Elodia Kumar [facility] Start: 05-23-2024 End: 05-23-2024 ambulatory [facility] Start: 05-01-2024 End: 05-01-2024 Office outpatient visit 10 minutes Eh Waterman SALES AGENT FOOD VENDING SERVICE-BEE[employer]IER Work Phone: [facility] Comment on above: Family history of sy stemic lupus erythematosus (SLE) in mother (Primary Dx); Encounter for female control; Contact dermatitis, unspecified contact dermatitis type, unspecified trigger Start: 05-01-2024 End: 05-01-2024 ambulatory [facility] Start: 04-22-2024 End: 04-22-2024 ambulatory [facility] Start: 04-14-2024 End: 04-14-2024 Orders Only Eh Wateramn SALES AGENT FOOD VENDING SERVICE-BEE[employer]RA[employer]IER Work Phone: [facility] Comment on above: 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); Family history of systemic lupus erythematosus (SLE) in mother; Persistent depressive disorder; Fatigue, unspecified type; Arthralgia of multiple joints Start: 04-07-2024 End: 04-07-2024 Orders Only Eh Waterman SALES AGENT FOOD VENDING SERVICE-BEE[employer]RA[employer]IER Work Phone: [facility] Start: 04-04-2024 End: 04-07-2024 Office outpatient visit 10 minutes Eh Waterman SALES AGENT FOOD VENDING SERVICE-BEE[employer]IER Work Phone: [facility] Comment on above: Family history of sy stemic lupus erythematosus (SLE) in mother (Primary Dx); Persistent depressive disorder; Fatigue, unspecified type; Arthralgia of multiple joints Start: 03-22-2024 End: 03-24-2024 Refill Eh Waterman SALES AGENT FOOD VENDING SERVICE-BEE[employer]IER Work Phone: [facility] Start: 02-12-2024 End: 02-12-2024 Phys/qhp telephone evaluation 5-10 min Eh Waterman SALES AGENT FOOD VENDING SERVICE-BEE[employer]IER Work Phone: [facility] Comment on above: Class 3 severe obesi ty without serious comorbidity in adult, unspecified BMI, unspecified obesity type (CMS-HCC) (Primary Dx); Encounter for weight management Start: 01-24-2024 End: 01-25-2024 ambulatory EH WATERMAN [facility] Start: 01-24-2024 End: 01-24-2024 Office outpatient visit 15 minutes Eh Waterman SALES AGENT FOOD VENDING SERVICE-BEE[employer]RA[employer]IER Work Phone: [facility] Comment on above: Weight gain (Primary Dx); BMI 33.0-33.9,adult; Family history of diabetes mellitus; Encounter for lipid screening for cardiovascular disease; Medication management; Acute leg pain, left; Muscle cramps Start: 01-14-2024 End: 01-15-2024 Refill Eh Waterman SALES AGENT FOOD VENDING SERVICE-BEE[employer]IER Work Phone: [facility] Comment on above: Persistent depressiv e disorder Start: 12-13-2023 Orders Only Eh elizabeth SALES AGENT FOOD VENDING SERVICE-BEEF [employer]IER [facility] Start: 09-24-2023 Refill Eh elizabeth SALES AGENT FOOD VENDING SERVICE-B[employer]IER Work Phone: [facility] Comment on above: Persistent depressiv e disorder Start: 04-11-2022 End: 04-11-[address] JIE BATRES Facility:[facility]1 Procedures Date Procedure Procedure Detail Performing Clinician Start: 09-11-2024 COLPOSCOPY Jie Mac DO Work Phone: Start: 09-11-2024 Urine test visual color cmprsn meths Jie Batres DO Work Phone: Start: 08-05-2024 IGP,APTIMA HPV,AGE GDLN Jie Gisel DO Work Phone: Start: 08-05-2024 Microscopic observat ion [Identifier] in Cervix by Cyto stain Eh Waterman SALES AGENT FOOD VENDING SERVICETargazymeBEEF CATTLE GRAZIER Work Phone: Start: 07-31-2024 Follow-up visit Follow-up NESTOR WATERMAN Start: 05-01-2024 Adult depression scr eening assessment Eh Waterman SALES AGENT FOOD VENDING SERVICE-BEE[employer]IER Work Phone: Start: 01-24-2024 Ecg routine ecg w/le ast 12 lds w/i&r Eh Waterman [facility] Work Phone: Start: 01-24-2024 Adult depression scr eening assessment Eh Waterman [facility] Work Phone: Start: 07-31-2023 Microscopic observat ion [Identifier] in Cervix by Cyto stain Eh Waterman [facility] Work Phone: Start: 06-20-2023 Adult depression scr eening assessment Eh Waterman [facility] Work Phone: Plan of Treatment Date Care Activity Detail Author Start: 01-01-2029 DTaP,Tdap and Td Vaccines (2 - Td or Tdap) DTaP,Tdap and Td Vaccines (2 - Td or Tdap) [facility] Start: 08-05-2027 Screening for malign ant neoplasm of cervix Pap Smear [facility] Start: 07-31-2026 Screening for malign ant neoplasm of cervix Pap Smear [facility] Start: 03-06-2026 Tobacco Screening Tobacco Screening [facility] Start: 02-12-2026 Adult BMI Screening Adult BMI Screen ing [facility] Start: 02-12-2026 Tobacco Screening Tobacco Screening [facility] Start: 10-09-2025 Adult BMI Screening Adult BMI Screen ing [facility] Start: 10-09-2025 Tobacco Screening Tobacco Screening [facility] Start: 08-11-2025 End: 08-11-2025 Patient encounter procedure 08/11/2025 2:00 PM EST Office Visit [facility] [address] [place] [phone] Jie Batres, [address] [place] [address] [facility] Start: 07-31-2025 Adult BMI Screening Adult BMI Screen ing [facility] Start: 07-31-2025 Tobacco Screening Tobacco Screening [facility] Start: 05-25-2025 Influenza vaccination Influenza Vacc ine [facility] Start: 05-10-2025 Tobacco Screening Tobacco Screening [facility] Start: 05-01-2025 Adult BMI Screening Adult BMI Screen ing [facility] Start: 05-01-2025 Depression Screening Depression Scre ening [facility] Start: 04-10-2025 Tobacco Screening Tobacco Screening [facility] Start: 03-12-2025 End: 03-12-2025 Patient encounter procedure [facility] Comment on above: Arrived Start: 02-16-2025 Tobacco Screening Tobacco Screening [facility] Start: 02-12-2025 End: 02-12-2025 Patient encounter procedure 02/12/2025 2:40 PM EDT Office Visit [facility] [address] [facility] [place] [phone] Eh Waterman, [facility] [address] [place] [phone] [facility] Start: 02-11-2025 Tobacco Screening Tobacco Screening [facility] Start: 02-05-2025 End: 02-05-2025 Clinical Support 02/05/2025 8:00 AM EDT Clinical Support [facility] [address] [facility] [place] [phone] Eh Waterman, SALES AG[facility] [address] [place] [phone] [facility] Start: 01-23-2025 Adult BMI Screening Adult BMI Screen ing [facility] Start: 01-23-2025 Depression Screening Depression Scre ening [facility] Start: 01-23-2025 Tobacco Screening Tobacco Screening [facility] Start: 10-09-2024 End: 10-09-2024 [facility] Start: 10-09-2024 End: 10-09-2025 Vitamin D 25 hydroxy Vitamin D 25 hydroxy Lab Routine Wellness examination Insomnia, unspecified type Expected: 10/09/2024 (Approximate), Expires: 10/09/2025 [facility] Comment on above: Expected: 10/09/2024 (Approximate), Expires: 10/09/2025 Start: 09-11-2024 End: 09-11-2025 Colposcopy Colposcopy Procedures Routine LGSIL of cervix of undetermined significance Expected: 09/11/2024 (Approximate), Expires: 09/11/2025 [facility] Work Phone: Comment on above: Expected: 09/11/2024 (Approximate), Expires: 09/11/2025 Start: 09-11-2024 End: 09-11-2024 Patient encounter procedure 09/11/2024 11:30 AM EST Procedure Visit [facility] [address] [place] [phone] Jie Batres DO [address] [place] [address] [facility] Start: 08-12-2024 Adult BMI Screening Adult BMI Screen ing [facility] Start: 08-12-2024 Tobacco Screening Tobacco Screening [facility] Start: 07-31-2024 End: 07-31-2024 Patient encounter procedure [facility] Start: 06-20-2024 Depression Screening Depression Scre ening [facility] Start: 05-25-2024 Influenza vaccination Influenza Vacc ine [facility] Start: 05-01-2024 End: 05-01-2024 Patient encounter procedure 05/01/2024 3:30 PM EDT Office Visit [facility] [address] [place] [address] Eh Waterman APRN-SHERRON [address] [place] [address] [facility] Start: 01-24-2024 End: 01-24-[address] [facility] Start: 05-25-2023 Influenza vaccination Influenza Vacc ine [facility] Start: 10-14-2014 Screening for malign ant neoplasm of cervix [facility] Start: 2011 Adult BMI Follow Up Plan Adult BMI Follow Up Plan [facility] End: 04-10-2025 RANJIT Screen w/ Reflex RANJIT Screen w/ Reflex Lab Routine Family history of systemic lupus erythematosus (SLE) in mother Fatigue, unspecified type Arthralgia of multiple joints 1 Occurrences starting 04/10/2024 until 04/10/2025 [facility] Work Phone: Comment on above: 1 Occurrences starti ng 04/10/2024 until 04/10/2025 End: 04-14-2025 C-reactive protein C-reactive protein Lab Routine Skin irritation Family history of systemic lupus erythematosus (SLE) in mother Fatigue, unspecified type Arthralgia of multiple joints 1 Occurrences starting 04/14/2024 until 04/14/2025 [facility] Comment on above: 1 Occurrences starti ng 04/14/2024 until 04/14/2025 End: 05-01-2025 C-reactive protein C-reactive protein Lab Routine Family history of systemic lupus erythematosus (SLE) in mother 1 Occurrences starting 05/01/2024 until 05/01/2025 [facility] Work Phone: Comment on above: 1 Occurrences starti ng 05/01/2024 until 05/01/2025 End: 04-14-2025 CBC W Auto Differential panel - Blood CBC auto differential Lab Routine Skin irritation 1 Occurrences starting 04/14/2024 until 04/14/2025 [facility] Work Phone: Comment on above: 1 Occurrences starti ng 04/14/2024 until 04/14/2025 End: 10-09-2025 Comprehensive metabolic 2000 panel - Serum or Plasma Comprehensive metabolic panel Lab Routine Wellness examination 1 Occurrences starting 10/09/2024 until 10/09/2025 [facility] Work Phone: Comment on above: 1 Occurrences starti ng 10/09/2024 until 10/09/2025 Cytology Cervical or vaginal smear or scraping study Pap Smear Pathology and Cytology Routine Well woman exam with routine gynecological exam Ordered: 08/05/2024 [facility] Work Phone: Comment on above: Ordered: 08/05/2024 End: 04-14-2025 Erythrocyte sedimentation rate Erythrocyte Sedimentation Rate (ESR) Lab Routine Skin irritation Family history of systemic lupus erythematosus (SLE) in mother Fatigue, unspecified type Arthralgia of multiple joints 1 Occurrences starting 04/14/2024 until 04/14/2025 [facility] Work Phone: Comment on above: 1 Occurrences starti ng 04/14/2024 until 04/14/2025 End: 10-09-2025 Hemoglobin A1c/Hemoglobin.total in Blood Hemoglobin A1c Lab Routine Wellness examination Skin candidiasis 1 Occurrences starting 10/09/2024 until 10/09/2025 [facility] Comment on above: 1 Occurrences starti ng 10/09/2024 until 10/09/2025 Human papilloma viru s DNA [Presence] in Unspecified specimen by Probe with amplification HPV DNA probe, amplified Microbiology Routine Well woman exam with routine gynecological exam Ordered: 08/05/2024 [facility] Comment on above: Ordered: 08/05/2024 Immunizations Immunization Date Immunization Notes Care Provider Akilah butts 01-01-2019 tetanus toxoid, redu ernesto diphtheria toxoid, and acellular pertussis vaccine, adsorbed 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 2022 Medicaid [id number] 2019 Worker's Comp, Other (unspecified) WORKER'S COMPENSATION [id number] 1993 Unknown [id number] [id number]. 593 1993 Unknown [id number] 2.16.840.1.720761.3.579.2. 1286 1993 Unknown [id number] 2.16.840.1.176605.3.579.2. 1259 1993 Unknown [id number] 2.16.840.1.043211.3.579.2. 1259 1993 Unknown [id number] 2.16.840.1.615974.3.579.2. 1286 1993 Unknown [id number] 2.16.840.1.625971.3.579.2. 1286 1993 Unknown [id number] 2.16.840.1.508808.3.579.2. 1286 1993 Unknown [id number] 2.16.840.1.158395.3.579.2. 1286 1993 Unknown [id number] 2.16.840.1.088933.3.579.2. 1286 1993 Unknown [id number] 2.16.840.1.901665.3.579.2. 1286 1993 Unknown [id number] 2.16.840.1.172966.3.579.2. 1286 1993 Unknown [id number] 2.16.840.1.046444.3.579.2. 1286 1993 Unknown [id number] 2.16.840.1.643805.3.579.2. 1286 1993 Unknown [id number] 2.16.840.1.443505.3.579.2. 1286 1959 Unknown [id number] Social History Date Type Detail Facility Start: 06-20-2023 End: 07-17-2023 Tobacco smoking status PRIS Never smoked tobacco [facility] Start: 06-20-2023 End: 07-17-2023 Tobacco use and exposure Smokeless tobacco non-user [facility] Start: 08-05-2024 End: 09-11-2024 Alcoholic beverage intake Current drinker of alcohol (finding) [facility] Start: 11-04-2020 End: 01-16-2024 History of [address] [facility] Start: 11-04-2020 End: 01-16-[address] [facility] Start: 07-17-2023 Alcohol Comment Occasional alcohol u se [facility] Start: 1995 Sex assigned at Not on file [facility] Start: 10-09-2024 End: 03-06-2025 Alcoholic beverage intake Current non-drinker of alcohol (finding) [facility] Adolescent depressio n screening assessment 6 [facility] Start: 04-29-2015 Sex Female (finding) [facility] How hard is it for y ou to pay for the very basics like food, housing, medical care, and heating Somewhat hard [facility] Clinical Notes 01-24-2024 to 03-06-2025 Telephone Encounter - Chanelle Underwood CNA - 03/06/2025 1:58 PM EDTTelephone Encounter - Chanelle Underwood CNA - 03/06/2025 1:58 PM KENNETH Hua CNP - 03/06/2025 10:40 AM EDT Note Date & Type Note Facility 03-06-2025 Miscellaneous Notes Attempted to call patient with no answer. Left voicemail to call office. ----- Message from CHUY Amaya sent at 03/02/2025 6:29 PM EDT ----- Labs are WNL ----- Message ----- From: Lab, Background User Sent: 02/24/2025 6:10 PM EDT To: CHUY Amaya documented in this encounter [facility] 03-06-2025 Telephone encounter Note Attempted to call patient with no answer. Left voicemail to call office. ----- Message from CHUY Amaya sent at 03/02/2025 6:29 PM EDT ----- Labs are WNL ----- Message ----- From: Lab, Background User Sent: 02/24/2025 6:10 PM EDT To: CHUY Amaya [facility] 03-06-2025 History of Presen t illness Narrative Images from the original note were not included. Subjective Patient ID: Rani Noe is a 29 y.o. female. Video Visit via Real-time Synchronous Audiovisual Provider Location: [facility] [address] [place] [phone] Patient Location: Other Video Visit Consent Statement: I discussed risks, benefits, and alternatives of a real-time synchronous audiovisual consultation with the patient (and any accompanying persons) including the risks that the patient's personal health details and medical records will be discussed over real-time, synchronous, interactive video/audio/telecommunication technology, the visit will not be recorded without the express consent of both the provider and the patient, and that there are some limitations compared to [id number] evaluations. The patient consented to the presence [...] Tylenol up to a 1000 mg and ibuprofen up to 400 mg as needed however this [...] post discharge medication. Review of Systems Constitutional: Negative. [...] tablet (25 mg total) by mouth nightly. CHUY Amaya 03/08/25 [id number] documented in this encounter [facility] 02-05-2025 History of Presen t illness Narrative Patient is here for nurse visit. They are here for a lab draw. Venipuncture performed in the left arm. Patient had no adverse reactions. Brenda Nesbitt CMA documented in this encounter [facility] 10-09-2024 History of Presen t illness Narrative Subjective Patient ID: Rani Noe is a 29 y.o. female. HPI Rani presents to the office for wellness and follow up on anxiety and sleep. She currently is on zoloft 50 mg and trazodone 100 mg. This is working well for her. She continues with dry skin to hands and feet and they are very itchy. She has applied ordered nystatin in the past with minimal relief. The ammonium lactate lotion did not seem to help. She bought new work boots, and is ensuring to stay dry. She also noted she had yeast rash under her breast and into the armpits when she went to see Dr. Batres recently for pap. She reports he ordered a powder that resolved the issue. However, she still notices some redness under her arms. Care Team: PCP Women's health- she had abnormal PAP, she had colposcopy, HPV. She had yeast infection under her breast and powder was sent. The following portions of the patient's history [...] for shortness of breath and wheezing. Cardiovascular: Negative for chest pain, palpitations and leg swelling. Endocrine: Negative. Skin: Positive for rash. Dry and itchy skin to hands and feet. She also noted some redness under the arms Neurological: Negative for dizziness, light-headedness and headaches. Psychiatric/Behavioral: Negative. Objective Physical Exam Vitals and nursing note reviewed. Constitutional: General: She is not in acute distress. Appearance: Normal appearance. She is well-developed. She is not ill-appearing. HENT: Head: Normocephalic and atraumatic. Right Ear: Tympanic membrane, ear canal and external ear normal. Left Ear: Tympanic membrane, ear canal and external ear normal. Nose: Nose normal. Mouth/Throat: Mouth: Mucous membranes are moist. Pharynx: Oropharynx is clear. Eyes: Extraocular Movements: Extraocular movements intact. Conjunctiva/sclera: Conjunctivae normal. Pupils: Pupils are equal, round, and reactive to light. Neck: Vascular: No carotid bruit. Cardiovascular: Rate and Rhythm: Normal rate and regular rhythm. Pulses: Normal pulses. Heart sounds: Normal heart sounds. No murmur heard. Pulmonary: Effort: Pulmonary effort is normal. No respiratory distress. Breath sounds: Normal breath sounds. No wheezing, rhonchi or rales. Chest: Chest wall: No tenderness. Abdominal: General: Bowel sounds are normal. There is no distension. Palpations: Abdomen is soft. There is no mass. Tenderness: There is no abdominal tenderness. There is no guarding or rebound. Hernia: No hernia is present. Musculoskeletal: General: Normal range of motion. Cervical back: Normal range of motion and neck supple. No rigidity or tenderness. Right lower leg: No edema. Left lower leg: No edema. Lymphadenopathy: Cervical: No cervical adenopathy. Skin: General: Skin is warm and dry. Capillary Refill: Capillary refill takes less than 2 seconds. Findings: Rash present. Comments: Dry skin to bilateral palmar hands. Dry skin and redness to bilateral feet. Redness to top of right foot. 2 areas of darkened skin to right lower anterior leg. Neurological: General: No focal deficit present. Mental Status: She is alert and oriented to person, place, and time. Motor: No weakness. Psychiatric: Mood and Affect: Mood normal. Behavior: Behavior normal. Assessment/Plan Health maintenance reviewed. She had labs completed in January. Lipid profile, TSH, HgbA1c unremarkable. Repeat labs ordered to be completed prior to next visit. PAP up to date with women's health. She had breast exam completed with women's health. Declines flu vaccine. BMI elevated, discussed diet and exercise. Discussed oral medication for yeast for ongoing yeast to skin that has not resolved with topical treatment. She would like to try topical. Continue treatment for at least one month. Eye solution for dry eyes. Up to date with eye exam. Otherwise healthy adult. Rani was seen today for wellness. Diagnoses and all orders for this visit: Wellness examination - Comprehensive metabolic panel; Future - Vitamin D 25 hydroxy; Future - Hemoglobin A1c; Future Insomnia, unspecified type - Vitamin D 25 hydroxy; Future - traZODone (DESYREL) 50 mg tablet; Take 2 tablets (100 mg total) by mouth nightly for 90 days. Skin candidiasis - Hemoglobin A1c; Future Other orders - ALAWAY 0.025 % (0.035 %) ophthalmic solution; Administer 1 drop to both eyes in the morning and 1 drop before bedtime. - nystatin-triamcinolone (MYCOLOG II) cream; Apply 1 Application topically in the morning and 1 Application at noon and 1 Application in the evening and 1 Application before bedtime. - nystatin (MYCOSTATIN) powder; Apply 1 Application topically in the morning and 1 Application before bedtime. CHUY Amaya 10/09/24 [id number] documented in this encounter [facility] 09-11-2024 History of Presen t illness Narrative Associated Order(s): Colposcopy Post-Procedure Diagnose(s): LGSIL of cervix of undetermined significance Reason for Appointment: Patient ID: Rani Noe is a 29 y.o. female who presents for No chief complaint on file. Patient presents today for a Colposcopy appointment. MEDICATIONS Current Outpatient Medications Medication Instructions nystatin (Mycostatin) 648709 UNIT/GM powder Topical, 3 times daily sertraline [...] nursing note reviewed. Exam conducted with a funeral home assistant present. Vitals: Estimated body mass index is [...] Jie Batres DO documented in this encounter [facility] 08-05-2024 History of Presen t illness Narrative Reason for Appointment: Patient ID: [...] nursing note reviewed. Exam conducted with a funeral home assistant present. Vitals: Estimated body mass index is [...] Jie Batres DO documented in this encounter [facility] 07-31-2024 History of Presen t illness Narrative Subjective Patient ID: Rani Noe [...] Amaya 07/31/24 1446 documented in this encounter [facility] 05-27-2024 Miscellaneous Notes ----- Message from CHUY Amaya sent at 05/25/2024 5:48 PM EDT ----- Please let her know negative result. Called patient to let her know about results, she verbalized understanding documented in this encounter [facility] 05-27-2024 Telephone encounter Note ----- Message from CHUY Amaya sent at 05/25/2024 5:48 PM EDT ----- Please let her know negative result. [facility] 05-27-2024 Telephone encounter Note Called patient to let her know about results, she verbalized understanding [facility] 05-01-2024 History of Presen t illness Narrative Subjective Patient ID: Rani Noe is a 28 y.o. female. HPI Rani presents to the office for routine FU for anxiety/depression. Zoloft for the most part this seems to work well. Denies SI. Trazodone she is only taking 25 mg. At first it worked well. Now she has been waking about after about 4 hours cannot fall back to sleep, discussed she can increase to 100 mg. Rash to leg is gone. But she continues with rash bilateral hands. She reports this started right after 04/04 appointment, so about 04/06. Just applying lotion and Cold water. Hands are very itchy. Also reports new tingling to her bilateral hands that is new. Feels like part of her arm falls asleep and hands tingle a little. She had chest discomfort for one day. It hurt to breath sharp, stabbing, left upper chest. Lasted the one day. It occurred on a day off, not exerting self. Has not occurred again. Since taking the steroid she feels like she is struggling to find her words and reports having headaches. Headaches have been occurring daily since the steroids.Throbbing. Entire head. She has never had a migraine or ever had consistent headaches like this before. Some sensitive to light. Denies nausea. Pain 4, gets up to an 8. No changes to diet. Tylenol and ibuprofen helps bring it down, but comes right back The following portions of the patient's history were reviewed and updated as appropriate: allergies, current medications, past family history, past medical history, past social history, past surgical history, problem list, and medication reconciliation was completed including current medication and post discharge medication. Review of Systems Constitutional: Positive for fatigue. Negative for chills, diaphoresis, fever and unexpected weight change. Respiratory: Negative for cough, chest tightness, shortness of breath and wheezing. Cardiovascular: Positive for chest pain. Negative for palpitations and leg swelling. Genitourinary: Negative for dysuria. Skin: Positive for rash. Neurological: Positive for numbness and headaches. Negative for dizziness, syncope and weakness. Psychiatric/Behavioral: Positive for sleep disturbance. Negative for self-injury and suicidal ideas. Objective Physical Exam Vitals and nursing note reviewed. Constitutional: General: She is not in acute distress. Appearance: Normal appearance. She is not ill-appearing. HENT: Head: Normocephalic and atraumatic. Right Ear: External ear normal. Left Ear: External ear normal. Mouth/Throat: Mouth: Mucous membranes are moist. Pharynx: Oropharynx is clear. No oropharyngeal exudate or posterior oropharyngeal erythema. Eyes: General: Right eye: No discharge. Left eye: No discharge. Extraocular Movements: Extraocular movements intact. Conjunctiva/sclera: Conjunctivae normal. Pupils: Pupils are equal, round, and reactive to light. Neck: Vascular: No carotid bruit. Cardiovascular: Rate and Rhythm: Normal rate and regular rhythm. Pulses: Normal pulses. Heart sounds: Normal heart sounds. Pulmonary: Effort: Pulmonary effort is normal. No respiratory distress. Breath sounds: Normal breath sounds. No stridor. No wheezing or rhonchi. Musculoskeletal: Cervical back: Normal range of motion and neck supple. No rigidity or tenderness. Right lower leg: No edema. Left lower leg: No edema. Skin: Capillary Refill: Capillary refill takes less than 2 seconds. Findings: Rash present. No erythema. Comments: Small bumps to bilateral hands. And fingers. Minimal erythema. Neurological: General: No focal deficit present. Mental Status: She is alert. Psychiatric: Mood and Affect: Mood normal. Behavior: Behavior normal. Assessment/Plan Triamcinolone sent in for contact dermatitis to bilateral hands. I would like to recheck CRP in a few weeks after she has been off steroids d/t family hx of autoimmune disorder. We will try phexxi for control as she is not tolerating hormonal control. She has tried oral medications, patches, IUD. But everything side effects. We would like to trial PRN Phexxi. Please ensure to take the full 50 mg tablet, but she may increase the dosage if she continues to not be able to sleep. Magnesium sent in for headaches, please monitor symptoms, triggers. Keep a log. Discussed if symptoms persist we will need to further evaluate with imaging. FU 3 months for sleep and headaches. Or sooner PRN. Rani was seen today for anxiety. Diagnoses and all orders for this visit: Family history of systemic lupus erythematosus (SLE) in mother - C-reactive protein; Future Encounter for female control - lactic oqtg-junfsy-sjgojpqyg (PHEXXI) 1.8-1-0.4 % gel; Insert 1 Application into the vagina as needed (with intercourse). Contact dermatitis, unspecified contact dermatitis type, unspecified trigger Other orders - triamcinolone (KENALOG) 0.5 % ointment; Apply 1 Application topically in the morning and 1 Application before bedtime. - magnesium oxide (MAGOX) 400 mg tablet; Take 1 tablet (400 mg total) by mouth in the morning. CHUY Amaya 05/10/24 [id number] documented [facility] History of Presen t illness Narrative Subjective Patient ID: Rani Noe is a 28 y.o. female. Please see attached document as computer system was down. Diagnoses and all orders for this visit: Family history of systemic lupus erythematosus (SLE) in mother - RANJIT Screen w/ Reflex; Future Persistent depressive disorder Fatigue, unspecified type - RANJIT Screen w/ Reflex; Future Arthralgia of multiple joints - RANJIT Screen w/ Reflex; Future Other orders - traZODone (DESYREL) 50 mg tablet; Take 2 tablets (100 mg total) by mouth nightly. CHUY Amaya 04/10/24 1732 documented in this encounter [facility] 02-12-2024 History of Presen t illness Narrative Subjective Patient ID: Rani Noe is a 28 y.o. female. Telephone Visit via Real-time Audio-only Provider Location: Login Department Patient Location: Patient's home Telephone Visit Consent Statement: I discussed risks, benefits, and alternatives of a real-time synchronous audio consultation with the patient (and any accompanying persons) including the risks that the patient's personal health details and medical records will be discussed over real-time, synchronous, audio-only telecommunication technology, and that there are some limitations compared to [id number] evaluations. We elected to proceed. Total time spent on the phone with the patient: 9 minutes. HPI Rani presents via telephone visit as she has questions about labs. Lipid profile unremarkable, TSH WNL, hgbA1c normal. Rani was concerned about her cholesterol level being low. However, it is only slightly below normal and therefore is unremarkable. The following portions of the patient's history were reviewed and updated as appropriate: allergies, current medications, past family history, past medical history, past social history, past surgical history, problem list, and medication reconciliation was completed including current medication and post discharge medication. Review of Systems Constitutional: Negative for chills, diaphoresis, fatigue, fever and unexpected weight change. Respiratory: Negative for cough, chest tightness, shortness of breath and wheezing. Cardiovascular: Negative for chest pain, palpitations and leg swelling. Genitourinary: Negative for dysuria. Skin: Negative. Neurological: Negative for dizziness, syncope and weakness. Psychiatric/Behavioral: Negative for self-injury, sleep disturbance and suicidal ideas. Objective Physical Exam Unable to complete full physical exam via telephone visit. Rani is answering appropriately and does not sound to be in acute distress. Assessment/Plan Discussed possibly ordering additional labs, she was inquiring about autoimmune thyroid. Also discussed possible CMP. I recommend we work on diet and exercise, but we discussed different weight management medications. She will let me know if she would like to trial medication. FU 3 months for weight management. Rani was seen today for results. Diagnoses and all orders for this visit: Class 3 severe obesity without serious comorbidity in adult, unspecified BMI, unspecified obesity type ([facility] Encounter for weight management CHUY Amaya 02/17/[id number] documented in this encounter [facility] 01-24-2024 History of Presen t illness Narrative Subjective Patient ID: Rani Noe is a 28 y.o. female. HPI Rani presents to the office for follow up on depression. She has been on zoloft, and this is working well for her. She was having difficulty with sleep so I sent in low dose trazodone. She feels this is working well for her. Today: ZAY- 5, Depression 8. Concerned about her weight. She is not overeating. 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 [employer]. Has been on this for over a year. Not gained a lot. Patch caused skin irration Pill- was not taking routine. IUD- uri, before, she was 120 lbs, but then went up to 200 lbs on this, when she took that out, she lost the weight. Also, she reports Left leg pain. 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 Her knee gave out when the dog ran into her and she went down on a picture frame. She has been having left knee pain intermittently since. Back in 2019 she fell on that knee. Also, Rani feels that she gers dia horse down the calf, and gets left hip pain. This seems to mostly occur with walking, but can occur when she is resting as well resting. The following portions of the patient's history were reviewed and updated as appropriate: allergies, current medications, past family history, past medical history, past social history, past surgical history, and problem list. Review of Systems Constitutional: Negative for chills, diaphoresis, fatigue, fever and unexpected weight change. Respiratory: Negative for cough, chest tightness, shortness of breath and wheezing. Cardiovascular: Negative for chest pain, palpitations and leg swelling. Gastrointestinal: Negative for abdominal pain. Genitourinary: Negative for dysuria. Musculoskeletal: Positive for arthralgias and myalgias. Leg pain Skin: Negative. Neurological: Negative for dizziness, syncope and weakness. Psychiatric/Behavioral: Negative for self-injury, sleep disturbance and suicidal ideas. Objective Physical Exam Vitals and nursing note reviewed. Constitutional: Appearance: Normal appearance. HENT: Head: Normocephalic and atraumatic. Right Ear: External ear normal. Left Ear: External ear normal. Mouth/Throat: Mouth: Mucous membranes are moist. Pharynx: No oropharyngeal exudate or posterior oropharyngeal erythema. Eyes: Extraocular Movements: Extraocular movements intact. Pupils: Pupils are equal, round, and reactive to light. Neck: Vascular: No carotid bruit. Cardiovascular: Rate and Rhythm: Normal rate and regular rhythm. Pulses: Normal pulses. Heart sounds: Normal heart sounds. Pulmonary: Effort: Pulmonary effort is normal. No respiratory distress. Breath sounds: Normal breath sounds. No wheezing. Musculoskeletal: Cervical back: Normal range of motion and neck supple. No rigidity or tenderness. Right lower leg: No edema. Left lower leg: No edema. Skin: Findings: No erythema or rash. Neurological: General: No focal deficit present. Mental Status: She is alert. Psychiatric: Mood and Affect: Mood normal. Behavior: Behavior normal. Assessment/Plan She can take tylenol and ibuprofen PRN for leg pain. Encouraged increased fluid intake. We will check labs for possible cause of weight gain. Discussed different medications for weight management. Discussed GLP-1, but she has family history of thyroid cancer. I do not recommend. EKG ordered as we discussed possible start of adipex. POCT EKG- NSR. FU 3 months for mental health. FU PRN for weight management. Rani was seen today for follow-up, obesity, anxiety and depression. Diagnoses and all orders for this visit: Weight gain - Lipid profile; Future - TSH with Reflex; Future - Hemoglobin A1c; Future BMI 33.0-33.9,adult - Lipid profile; Future - TSH with Reflex; Future - Hemoglobin A1c; Future Family history of diabetes mellitus - Hemoglobin A1c; Future Encounter for lipid screening for cardiovascular disease - Lipid profile; Future Medication management - POCT EKG Acute leg pain, left Muscle cramps CHUY Amaya 01/29/242101 documented in this encounter [facility] Evaluation note Diagnosis Well woman exam with routine gynecological exam Routine gynecological examination Skin yeast infection Candidiasis of skin and nails documented in this encounter [facility]* Diagnosis LGSIL of cervix of undetermined significance documented in this encounter [facility]* Diagnosis Wellness examination- Primary Insomnia, unspecified type Skin candidiasis Candidiasis of skin and nails documented in this encounter [facility]* Diagnosis Persistent depressive disorder documented in this encounter [facility]* Diagnosis Persistent depressive disorder [facility] Diagnosis Weight gain- Primary Other symptoms concerning nutrition, metabolism, and development BMI 33.0-33.9,adult Family history of diabetes mellitus Encounter for lipid screening for cardiovascular disease Medication management Acute leg pain, left Muscle cramps [facility]* Diagnosis Class 3 severe obesity without serious comorbidity in adult, unspecified BMI, unspecified obesity type ([facility])- Primary Encounter for weight management documented in this encounter [facility]* Diagnosis Family history of systemic lupus erythematosus (SLE) in mother- Primary Persistent depressive disorder Fatigue, unspecified type Arthralgia of multiple joints Pain in joint, multiple sites documented in this encounter [facility] note* Diagnosis Skin irritation- Primary Unspecified disorder of skin and subcutaneous tissue [facility]* Diagnosis Skin irritation- Primary Unspecified disorder of skin and subcutaneous tissue Family history of systemic lupus erythematosus (SLE) in mother Persistent depressive disorder Fatigue, unspecified type Arthralgia of multiple joints Pain in joint, multiple sites documented in this encounter [facility]* Diagnosis Family history of systemic lupus erythematosus (SLE) in mother- Primary Encounter for female control Contact dermatitis, unspecified contact dermatitis type, unspecified trigger documented in this encounter [facility]* Diagnosis Encounter for female control [facility]* Diagnosis Persistent depressive disorder documented in this encounter [facility] note* Diagnosis Encounter for other contraceptive management- Primary documented in this encounter [facility]* Diagnosis Insomnia, unspecified type- Primary Persistent depressive disorder Dry skin Other symptoms involving skin and integumentary tissues Skin candidiasis Candidiasis of skin and nails documented in this encounter [facility]* Diagnosis Persistent depressive disorder documented in this encounter [facility]* Diagnosis Wellness examination Skin candidiasis Candidiasis of skin and nails Insomnia, unspecified type documented in this encounter [facility] note* Diagnosis Herpes zoster without complication documented in this encounter [facility] SystemInstructions* Attachments The following attachments cannot be sent through Care Everywhere. * Diabetes Exchange Diet (Vietnamese) documented [facility]ructionsNot on file documented in this encounterProMed[facility] SystemInstructionsNot on file documented in this encounterPro[facility] SystemInstructionsNot on file documented in this [facility]* Attachments The following attachments cannot be sent through Care Everywhere. * Topiramate, ADULT (Vietnamese) * Phentermine, ADULT (Vietnamese) * Naltrexone and Bupropion, ADULT (Vietnamese) documented in this encounterProMedin[facility] Health SystemInstructionsNot on file documented in this encounterPro[facility] Health SystemInstructionsNot on file documented in this encounterPro[facility] SystemInstructionsNot on file documented in this encounterProMedin[facility] Health SystemInstructionsNot on file documented in this encounterProMedinh Health SystemInstructionsNot on file documented in this encounterProMedinh Health SystemInstructionsNot on file documented in this encounterProMedinh Health SystemInstructionsNot on file documented in this encounterProMedica Health SystemInstructionsNot on file documented in this encounterPro[facility] Summary Purpose Family History No Family History Records FoundNo Family History Records FoundNo Family History Records FoundNo Family History Records FoundNo Family History Records Found Advance Directives No Advanced Directives Records FoundNo Advanced Directives Records FoundNo Advanced Directives Records FoundNo Advanced Directives Records FoundNo Advanced Directives Records Found Reason for Referral Specialty Diagnoses / Procedures Referred By Joce de luna Referred To Contact Diagnoses Encounter for female control Eh Waterman APRN-BEEF CATTLE GRAZIER [address] [place] [id number] Referral ID Status Reason Start Date Expiration Date V isits Requested Visits Authorized [id number] Pending Review 05/01/2024 05/01/2025 1 1 Additional Source Comments INFORMATION SOURCE (unrecogn ized section and content) DATE CREATED AUTHOR 04/14/2022 [facility] DATE CREATED AUTHOR AUTHOR'S ORGANIZ ATION 01/26/2024 [facility] DATE CREATED AUTHOR AUTHOR'S ORGANIZ ATION 09/14/2024 [facility] DATE CREATED AUTHOR AUTHOR'S ORGANIZ ATION 02/25/2025 [facility] DATE CREATED AUTHOR AUTHOR'S ORGANIZ ATION 03/09/2025 [facility] Care Teams (unrecognized sec tion and content) Wood Floor Refinisher Relationship Specialty Start Date End Date Eh Waterman MD [address], [place] [address] PCP - General Family Medicine 07/31/23 Wood Floor Refinisher Relationship Specialty Start Date End Date Eh Waterman MD [address], [place] [address] PCP - General Family Medicine 07/31/23 Wood Floor Refinisher Relationship Specialty Start Date End Date Eh Waterman MD [address], [address] [place] [address] PCP - General Family Medicine 07/31/23 Wood Floor Refinisher Relationship Specialty Start Date End Date Eh Waterman APRN-BEEF CATTLE GRAZIER PCP - General Nurse Practitioner 06/20/23 Wood Floor Refinisher Relationship Specialty Start Date End Date Eh Waterman APRN-BEEF CATTLE GRAZIER [address] [place] [address] PCP - General Nurse Practitioner 06/20/23 Wood Floor Refinisher Relationship Specialty Start Date End Date Eh Waterman APRN-BEEF CATTLE GRAZIER PCP - General Nurse Practitioner 06/20/23 Wood Floor Refinisher Relationship Specialty Start Date End Date Eh Waterman APRN-BEEF CATTLE GRAZIER PCP - General Nurse Practitioner 06/20/23 Wood Floor Refinisher Relationship Specialty Start Date End Date Eh Waterman APRNKatlynBEEF CATTLE GRAZIER PCP - General Nurse Practitioner 06/20/23 Wood Floor Refinisher Relationship Specialty Start Date End Date Eh Waterman APRNJAMIE PCP - General Nurse Practitioner 06/20/23 Wood Floor Refinisher Relationship Specialty Start Date End Date Eh Waterman APRNKatlynBEEF CATTLE GRAZIER PCP - General Nurse Practitioner 06/20/23 Wood Floor Refinisher Relationship Specialty Start Date End Date Demarco Eh, SALES AGENT FOOD VENDING SERVICEJAMIE PCP - General Nurse Practitioner 06/20/23 Wood Floor Refinisher Relationship Specialty Start Date End Date Demarco Eh, SALES AGENT FOOD VENDING SERVICEKatlynBEEF CATTLE GRAZIER PCP - General Nurse Practitioner 06/20/23 Wood Floor Refinisher Relationship Specialty Start Date End Date Eh Waterman APRNKatlynBEEF CATTLE GRAZIER PCP - General Nurse Practitioner 06/20/23 Wood Floor Refinisher Relationship Specialty Start Date End Date WatermanJacintaEh SALES AGENT FOOD VENDING SERVICEKatlynBEEF CATTLE GRAZIER PCP - General Nurse Practitioner 06/20/23 Wood Floor Refinisher Relationship Specialty Start Date End Date Eh Waterman APRNKatlynBEEF CATTLE GRAZIER PCP - General Nurse Practitioner 06/20/23 Wood Floor Refinisher Relationship Specialty Start Date End Date Eh Waterman APRNKatlynBEEF CATTLE GRAZIER PCP - General Nurse Practitioner 06/20/23 Wood Floor Refinisher Relationship Specialty Start Date End Date Eh Waterman APRN-CNP [address] [place], [facility] [address] PCP - General Family Medicine 02/24/25 Wood Floor Refinisher Relationship Specialty Start Date End Date Eh Waterman APRN-CNP [address] [place], [place] [address] PCP - General Family Medicine 02/24/25 Wood Floor Refinisher Relationship Specialty Start Date End Date Eh Waterman MD [address] [place] [address] PCP - General Family Medicine 07/31/23 Reason for Visit (unrecogniz ed section and content) Reason Comments Well Women Visit Reason Comments Wellness Reason Comments Med Refill Reason Comments Follow-up 6 month follow up Obesity Anxiety Depression Reason Comments Results Labs Reason Comments Anxiety Reason Comments Follow-up Headaches and sleep Reason Comments Med Refill Reason Onset Date Comments Results 03/06/2025 FOR RECORDS PERTAINING TO PATIENTS WHO ARE [...] BE BASED ON THE PRIMARY CLINICAL RECORDS. [employer] [facility]. provides no warranty or guarantee of the accuracy or completeness of information in this document.
[2025-03-17 12:08] LABS: Age Gdln ACOG Testing Note (.); HPV Aptima Positive (Negative); IGP, Aptima HPV, rfx 16/18,45 Note (.)
== END 2025-03-12 14:56 | disposition home or self-care (01) ==
LOC: LAB 14:55
PROVIDERS: Visit Provider Obstetrics & Gynecology
DX: Z01.419 Encounter for gynecological examination (general) (routine) without abnormal findings (principal)
CPT/HCPCS: 87624; 88175

== ENCOUNTER 2025-08-11 20:09 | Outpatient (REF) | payer MEDICAID, SELFPAY ==
--- OUTSIDE RECORDS SUMMARY | 2025-08-11 20:12 | XMS_ITS | CCD ---
Author Organization [facility] Care Team Providers Care Storage Management Architect Name Role Phone DR JIE BATRES Attending Unavailable GISEL, DR CERON Consulting Unavailable GISEL, DR CERON Admitting Unavailable WATERMAN, EH Referring Unavailable WATERMAN, EH Primary Care Unavailable Demarco AMOR, Eh Primary Care Provider Waterman HEALTH SAFETY SPECIALIST-MORNING SHOW NEWSCAST PRODUCER, Eh Primary Care Provider Waterman HEALTH SAFETY SPECIALIST-MORNING SHOW NEWSCAST PRODUCER, Eh Primary Care Provider [place] HEALTH SAFETY SPECIALIST-MORNING SHOW NEWSCAST PRODUCER, Eh Primary Care Provider WATERMAN, EH Referring Unavailable WATERMAN, EH Primary Care Unavailable WATERMAN, EH Referring Unavailable WATERMAN, EH Primary Care Unavailable WATERMAN, EH Referring Unavailable WATERMAN, EH Primary Care Unavailable Waterman HEALTH SAFETY SPECIALIST-MORNING SHOW NEWSCAST PRODUCER, Eh Primary Care Provider JIE BATRES Attending Unavailable JIE BATRES Attending Unavailable JIE BATRES Attending Unavailable WATERMAN, EH Attending Unavailable WATERMAN, EH [...] Referring Unavailable WATERMAN, EH Primary Care Unavailable JUSTIN HAWKINS Attending Unavailable WATERMAN, EH Referring Unavailable EH WATERMAN Primary Care Unavailable Allergies Allergy ClassificationReported Allergen(s)Allergy TypeDate of OnsetReaction(s) Facility (1 source)peanut allergenic extractDrug Umccrpt34-96-4712Rwu [facility] Medications Current Medications MedicationDrug Class(es)DatesSig (Normalized)Sig (Original)cholecalciferol 1.25 mg oral capsule (6 sources)Vitamin DStart: 02-12-2025 End: 23-27-3795cahs 1 capsule by mouth every weekcholecalciferol (VITAMIN D3) 50,000 units capsule Indications: Vitamin D deficiency Take 1 capsule (50,000 Units total) by mouth once a week. 8 capsule 07/03/2025 ActiveStart: 02-12-2025 cholecalciferol (Vitamin D-3) 1.25 MG (48670 UT) capsule Take 50,000 Units by mouth every 7 (seven)days 02/12/2025 Activecitric acid 0.01 mg/mg / lactic acid 0.018 mg/mg / potassium bitartrate 0.004 mg/mg vaginal gel (18 sources)Calculi Dissolution Agent, Anti-coagulantStart: 70-64-7988Huweug 1.8-1-0.4 % gel Insert 1 Application into the vagina Daily as needed 06/18/2024 ActiveStart: 05-01-2024 End: 52-27-8291waizlo xoms-ywfkkk-thswvhhpy (PHEXXI) 1.8-1-0.4 % gel Indications: Encounter for other contraceptive management Insert 1 Application into the vagina as needed (with intercourse). 5 g 3 07/03/2025 Activeketotifen 0.25 mg/ml ophthalmic solution (20 sources)Histamine-1 Receptor InhibitorStart: 05-18-2023 End: 52-66-0330shmg 1 drop(s) into the eye(s) in the morningALAWAY 0.025 % (0.035 %) ophthalmic solution Administer 1 drop to both eyes in the morning and 1 drop before bedtime. 10 mL 6 10/09/2024 Activesertraline 100 mg oral tablet (20 sources)Serotonin Reuptake InhibitorStart: 72-41-9287djfr 1 tablet by mouth in the morningsertraline (ZOLOFT) 100 mg tablet Indications: Moderate episode of recurrent major depressive disorder (CMS-HCC) , Anxiety , Persistent depressive disorder Take 1 tablet (100 mg total) by mouth in the morning. 30 tablet 2 07/03/2025 ActiveStart: 06-20-2023 End: 43-04-5211yrgh 1 tablet by mouth once daily in the morningsertraline (ZOLOFT) 50 mg tablet Indications: Persistent depressive disorder TAKE 1 TABLET BY MOUTHEVERY MORNING 30 tablet 5 09/02/2024 07/03/2025 Discontinued (Therapy completed)traZODone hydrochloride 50 mg oral tablet (20 sources)Serotonin Reuptake InhibitorStart: 09-10-7545qiix 1 tablet by mouth once dailytraZODone (DESYREL) 50 mg tablet Take 1 tablet (50 mg total) by mouth nightly. 06/04/2025 ActiveStart: 04-10-2024 End: 26-47-2709bext 2 tablets by mouth at bedtimetraZODone (Desyrel) 50 MG tablet Take 100 mg by mouth at bedtime 08/27/2024 ActiveStart: 12-13-2023 End: 08-33-1257lvgr 1 tablet by mouth once dailytraZODone (DESYREL) 50 mg tablet take 1 tablet by mouth nightly 30 tablet 03/24/2024 04/10/2024 Discontinued (Reorder) Completed/Discontinued Medications MedicationDrug Class(es)DatesSig (Normalized)Sig (Original)acetaminophen 500 mg oral tablet (3 sources)Start: 03-06-2025 End: 11-56-1362hvjy 2 tablets by mouth every six hours as needed for pain acetaminophen (TYLENOL EXTRA STRENGTH) 500 mg tablet Take 2 tablets (1,000 mg total) by mouth every6 (six) hours as needed for pain. 100 tablet 2 03/06/2025 07/03/2025 Discontinued (Therapy completed)amitriptyline hydrochloride 25 mg oral tablet (6 sources)Tricyclic AntidepressantStart: 03-06-2025 End: 74-20-1242elah 1 tablet by mouth once dailyamitriptyline (ELAVIL) 25 mg tablet Take 1 tablet (25 mg total) by mouth nightly. 30 tablet 2 03/06/2025 07/03/2025 Discontinued (Therapy completed)Start: 02-12-2025 End: 01-58-3191rtoe 1 tablet by mouth once dailyamitriptyline (ELAVIL) 10 mg tablet Indications: Herpes zoster without complication Take 1 tablet (10 mg total) by mouth nightly. 14 tablet 02/12/2025 03/06/2025 Discontinued (Alternate therapy)cyclobenzaprine hydrochloride 10 mg oral tablet (4 sources)Muscle RelaxantStart: 08-12-2023 End: 95-80-5716eezs 1 tablet by mouth three times daily as needed for muscle spasmscyclobenzaprine (FLEXERIL) 10 mg tablet Take 1 tablet (10 mg total) by mouth 3 (three) times a day as needed for muscle spasms. 30 tablet 08/12/2023 01/24/2024 Discontinued (Therapy completed)etonogestrel-ethinyl estradiol (EnilloRing) 0.12-0.015 MG/24HR vaginal ring (3 sources)Start: 03-24-2024 End: 08-77-5778axedqrjacyym-ethinyl estradiol (EnilloRing) 0.12-0.015 MG/24HR vaginal ring Indications: control counseling insert 1 ring vaginally for 3 weeks REMOVE for 1 week and repeat 1 each 3 03/24/2024 08/05/2024 Discontinued fluticasone propionate 0.05 mg/actuat metered dose nasal spray (18 sources)CorticosteroidStart: 07-25-2023 End: 19-87-0980fewl 2 spray(s) nasal route in the morningfluticasone propionate (FLONASE) 50 mcg/actuation nasal spray Administer 2 sprays into each nostrilin the morning. 15.8 mL 07/25/2023 07/31/2024 Discontinued (Therapy completed) gabapentin 400 mg oral capsule (5 sources)Anti-epileptic AgentStart: 03-06-2025 End: 66-01-1140efoe 1 capsule by mouth three times dailygabapentin (NEURONTIN) 400 mg capsule Indications: Herpes zoster without complication Take 1 capsule (400 mg total) by mouth 3 (three) times a day. 90 capsule 2 03/06/2025 07/03/2025 Discontinued (Therapy completed)HALOETTE 0.12-0.015 mg/24 hr vaginal ring (12 sources)Start: 04-05-2023 End: 73-65-5909ZRHBNSPG 0.12-0.015 mg/24 hr vaginal ring Insert 1 each into the vagina every 28 days. 04/05/2023 05/01/2024 Discontinued (Patient Stopped On Own)Start: 23-21-0504QQKQZDQP 0.12-0.015 mg/24 hr vaginal ring Insert 1 each into the vagina every 28 days. 04/05/2023 ActiveStart: 42-08-2215NFSBJDHC 0.12- 0.015 mg/24 hr vaginal ring Insert 1 each into the vagina every 28 days. 0 04/05/2023ctiveibuprofen 600 mg oral tablet (20 sources)Nonsteroidal Anti-inflammatory DrugStart: 08-12-2023 End: 16-03-7668ybnq 1 tablet by mouth in the morning, then take 1 tablet by mouth at mealtimeibuprofen (MOTRIN) 600 mg tablet Take 1 tablet (600 mg total) by mouth in the morning and 1 tablet (600 mg total) in the evening. Take with meals. 60 tablet 03/06/2025 07/03/2025 Discontinued (Therapy completed)ammonium lactate 120 mg/ml topical lotion (7 sources)Start: 07-31-2024 End: 69-41-1348pdfsxghu lactate (LAC-HYDRIN) 12 % lotion Apply 1 Application topically as needed for dry skin. 400g 1 07/31/2024 07/03/2025 Discontinued (Therapy completed)magnesium oxide 400 mg oral tablet (7 sources)Start: 05-01-2024 End: 26-71-1668uaov 1 tablet by mouth in the morningmagnesium oxide (MAGOX) 400 mg tablet Take 1 tablet (400 mg total) by mouth in the morning. 30 tablet 2 05/01/2024 07/31/2024 Discontinued (Therapy completed)nystatin 100 unt/mg topical powder (12 sources)Polyene AntifungalStart: 10-09-2024 End: 09-22-1494tahfdcek (MYCOSTATIN) powder Apply 1 Application topically in the morning and 1 Application before bedtime. 60 g 2 10/09/2024 07/03/2025 Discontinued (Therapy completed)Start: 08-05-2024 End: 22-50-8100qvdctazg (Mycostatin) 728012 UNIT/GM powder Indications: Skin yeast infection Apply topically 3 (three) times a day 15 g 08/05/2024 03/12/2025 DiscontinuedStart: 07-31-2024 End: 23-07-5276mksxupzx (MYCOSTATIN) cream Apply 1 Application topically in the morning and 1 Application before bedtime. Do all this for 7 days. 60 g 1 07/31/2024 08/07/2024 Activenystatin 362733 unt/ml / triamcinolone acetonide 1 mg/ml topical cream (5 sources)Polyene Antifungal, CorticosteroidStart: 10-09-2024 End: 37-80-9508oexfefll-triamcinolone (MYCOLOG II) cream Apply 1 Application topically in the morning and 1 Application at noon and 1 Application in the evening and 1 Application before bedtime. 120 g 4 10/09/2024 07/03/2025 Discontinued (Therapy completed)triamcinolone acetonide 0.005 mg/mg topical ointment (14 sources)CorticosteroidStart: 04-07-2024 End: 81-17-7024utrmcxcndrqxr (KENALOG) 0.5 % ointment Apply 1 Application topically in the morning and 1 Application before bedtime. 30 g 1 05/01/2024 07/31/2024 Discontinued (Therapy completed) Problems Active Problems Problem ClassificationProblemDateDocumented DateEpisodic/ChronicAnxiety disorders (20 sources)Anxiety; Translations: [Anxiety disorder, unspecified]Onset: 214835-72-5517IarlvxfYkdhwf of cervix (2 sources)Cervical intraepithelial neoplasia grade 1; Translations: [Low grade squamous intraepithelial lesion on cytologic smear of cervix (LGSIL)]09-11-2024 EpisodicContraceptive and procreative management (3 sources)Contraception status; Translations: [Encounter for initial prescription of contraceptives, unspecified]Onset: 265923-66-8771Gfvnpdeo Immunizations and screening for infectious disease (1 source)Encounter for screening for human papillomavirus (HPV); Translations: [ENC SCREENING HUMAN PAPILLOMAVIRUS]Onset: 16-99-7722EuidruorXlhr disorders (20 sources)Dysthymic disorder; Translations: [Dysthymic disorder]Onset: 540460-53-8067VtyiztyVnijbklovepp breast conditions (1 source)Galactorrhea not associated with childbirth; Translations: [Galactorrhea not associated with childbirth]Onset: 44-19-0299Dlxucptc Nutritional deficiencies (2 sources)Vitamin D deficiency; Translations: [Vitamin D deficiency, unspecified]Onset: 234866-36-0158RyjhndfBupxr aftercare (4 sources)Patient encounter status; Translations: [Other group home (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 therapy]71-57-1833SzdyfezyHldhc nutritional; endocrine; and metabolic disorders (1 source)Body mass index (BMI) 33.0-33.9, adult; Translations: [Body mass index (BMI) 33.0-33.9, adult]Onset: 14-87-4829EgeijarSisyn nutritional; endocrine; and metabolic disorders (1 source)Body mass index 30+ - obesity; Translations: [Body mass index (BMI) 33.0-33.9, adult]54-98-8286ZousyxkHsgpt nutritional; endocrine; and metabolic disorders (1 source)Severe obesity; Translations: [Morbid (severe) obesity due to excess calories]35-87-8457FjvaeufOssow nutritional; endocrine; and metabolic disorders (1 source)Abnormal weight gain; Translations: [Abnormal weight gain]Onset: 30-11-7644YawqvkoiOcsdpfsu codes; unclassified (1 source)Family history of diabetes mellitus; Translations: [Family history of diabetes mellitus]Onset: 27-72-1870OtnofbuuBsxltrln codes; unclassified (3 sources)Insomnia; Translations: [Insomnia, unspecified]15-07-4328Yvjctcvv Unclassified (1 source)WellnessOnset: 10-09-2024 Past or Other Problems Problem ClassificationProblemDateDocumented DateEpisodic/ChronicAllergic reactions (1 source)Contact dermatitis; Translations: [Unspecified contact dermatitis, unspecified cause]22-19-4069FqyxwkjuYfqnkgr and fatigue (3 sources)Fatigue; Translations: [Other fatigue]Onset: 426989-43-6904 EpisodicMood disorders (20 sources)Mood disordersOnset: 05-01-2024 Resolved: 486187-82-7873Spabswb (6 sources)Candidiasis of skin; Translations: [Candidiasis of skin and nail] Onset: 125180-61-7453NargunnrUyauz connective tissue disease (1 source)Pain in lower limb; Translations: [Pain in left leg]43-78-4223Lbfsubqs Other connective tissue disease (1 source)Cramp; Translations: [Cramp and spasm]64-58-1456NvvkiyuoRwkni non- traumatic joint disorders (2 sources)Multiple joint pain; Translations: [Pain in unspecified joint] 33-40-8002PogfkehlEuede non-traumatic joint disorders (1 source)Pain in unspecified joint; Translations: [Pain in unspecified joint] Onset: 97-94-4943AyjykbdqAcwge nutritional; endocrine; and metabolic disorders (1 source)Weight gain; Translations: [Abnormal weight gain]81-30-5027Tghmvcvy Other screening for suspected conditions (not mental disorders or infectious disease) (7 sources)Encounter for screening for malignant neoplasm of cervix; Translations: [Encounter for screening for lipoid disorders]Onset: 04-11-2022 EpisodicOther skin disorders (2 sources)Skin irritation ; Translations: [Other skin changes]04-14-2024 EpisodicOther skin disorders (1 source)Xeroderma; Translations: [Xerosis cutis]90-79-6105EeexbfinKwpde skin disorders (1 source)Other skin changes; Translations: [Other skin changes]Onset: 26-70-5689LwqibpaaVjqibbcb codes; unclassified (1 source)Family history of diabetes mellitus; Translations: [Family history of diabetes mellitus]08-83-2764LiwwciioNbmfhbls codes; unclassified (3 sources)Maternal history of systemic lupus erythematosus; Translations: [Family history of other diseases of the musculoskeletal system and connective tissue]39-56-1376CbindlxiPbkevhdf codes; unclassified (1 source)Family history of other diseases of the musculoskeletal system and connective tissue; Translations:[Family history of other diseases of the musculoskeletal system and connective tissue]Onset: 16-71-0003DtfpomknCouissde codes; unclassified (1 source)Insomnia, unspecified; Translations: [Insomnia, unspecified]Onset: 47-73-8488QyrlvzxrOeedwkecvgii (3 sources)Persistent depressive dxamxjny03-28-7289Uhlginfexzpx (1 source)Patient encounter inmkua37-14-5304Oldrosgzutfp (1 source)Onset: 633420-23-9149Lwrit infection (2 sources)Herpes zoster; Translations: [Zoster without complications]Onset: 092669-61-2353Odcjbrrr Results Test NameValueInterpretationReference RangeFacilityIGP,APTIMA HPV,AGE GDLNon 74-18-3050XFD GDLN ACOG TESTINGNote.NOMS HealthcareComment on above:TESTS RESULT FLAG UNITS REF RANGE LAB Clinician Provided Cytology Information Source.............Cervix;Endocervix No. of containers..01 ThinPrep Vial Age Algo ACOG Sarah... 30-65 01 FLAG LEGEND: L-Low Normal,H-High Normal,LL-Alert Low,HH-Alert High <-Panic Low,>-Panic High,A-Abnormal,AA-Critical Abnormal Performed at: 01 =G [facility] [address] Dulce Pham MD, HPV APTIMAPositiveAbnormalNegativeNOMS HealthcareComment on above:This nucleic acid amplification test detects fourteen high- risk HPV types (16,18,31,33,35,39,45,51,52,56,58,59,66,68) without differentiation. Performed at: =G - [facility] [address], [place] [id number] Residential Nurse: Dulce Pham MD, Phone: [phone] Performed at: - [facility] [address], [place] [id number] Residential Nurse: Dulce Pham MD, Phone: [phone] IGP, APTIMA HPV, RFX 16/18,45NoteAbnormal.NOMS HealthcareComment on above:TESTS RESULT FLAG UNITS REF RANGE LAB DIAGNOSIS: [A] 02 EPITHELIAL CELL ABNORMALITY. LOW GRADE SQUAMOUS INTRAEPITHELIAL LESION (LSIL). Recommendation: [A] 02 Suggest follow up as clinically appropriate. Specimen adequacy: 02 Satisfactory for evaluation. Endocervical and/or squamous metaplastic cells (endocervical component) are present. Performed by: 02 Allie Jama, Public Health Service Officer (ASCP) Electronically si... 02 Dulce Pham MD, Pathologist . 02 Pathologist ICD10: 02 R87.612 Note: Note 02 The Pap smear is a screening test designed to aid in the detection of premalignant and malignant conditions of the uterine cervix. It is not a diagnostic procedure and should not be used as the sole means of detecting cervical cancer. Both false-positive and false-negative reports do occur. Test Methodology: Note 02 This liquid based ThinPrep(R) pap test was screened with the use of an image guided system. HPV Genotype Reflex Note 02 Criteria not met, HPV Genotype not performed. FLAG LEGEND: L-Low Normal,H-High Normal,LL-Alert Low,HH-Alert High <-Panic Low,>-Panic High,A-Abnormal,AA-Critical Abnormal Performed at: 02 WB [facility] [address] [place] [address] Dulce Pham MD, Interpretation and review of laboratory resultsAbnormalNOFL Healthcare BRUSH-SPATULA CERVIX ENDOCERVIX CLINISYNCNOFL HealthcarePROLACTINon 74-87-5542JMVQMKUZK33.1 ng/mLNormal3.3-26.[address] [facility] HospitalComment on above:Performed By: #### PROL #### [facility] ([facility]) [address] [place] [address] VIRTSH WITH REFLEXon 86-37-2945CVD8.07 uIU/mLNormal0.49-4.[address] [facility] HospitalComment on above:Performed By: #### TSHR #### [facility] ([facility]) [address] [place] [address] VIRCOMPREHENSIVE METABOLIC PANELon 32-06-8752Mgwdfsh [Mass/Vol] 4.3 g/dLNormal3.2-5.3[facility] PPGComment on above:Performed By: #### CMP #### [facility] ([facility]) [address] [place] [address] VIRALP [Catalytic activity/Vol]54 U/DTlpenw55-313FwaMxhwms Hospital Ambulatory PPGComment on above:Performed By: #### CMP #### [facility] ([facility]) [address] [place] [address] VIRALT [Catalytic activity/Vol]17 U/LNormal<=31[facility] PPGComment on above:Performed By: #### CMP #### [facility] ([facility]) [address] [place] [address] VIRAnion gap [Moles/Vol]8 mmol/LNormal5-15[facility] PPGComment on above:Performed By: #### CMP #### [facility] ([facility]) [address] [place] [address] VIRAST [Catalytic activity/Vol]20 U/LNormal<=41[facility] PPGComment on above:Performed By: #### CMP #### [facility] ([facility]) [address] [place] [address] VIRBilirubin [Mass/Vol]0.3 mg/dLNormal0.3-1.2[facility] PPGComment on above:Performed By: #### CMP #### [facility] ([facility]) [address] [place] [address] VIRCalcium [Mass/Vol]9.1 mg/dLNormal8.5-10.5[facility] PPGComment on above:Performed By: #### CMP #### [facility] ([facility]) [address] [place] [address] VIRChloride [Moles/Vol]109 mmol/OIilupk60-773DhnJekvlv Hospital Ambulatory PPGComment on above:Performed By: #### CMP #### [facility] ([facility]) [address] [place] [address] VIRCO2 [Moles/Vol]23 mmol/IAsjqfv59-04HyzXpavet Hospital Ambulatory PPGComment on above:Performed By: #### CMP #### [facility] ([facility]) [address] [place] [address] VIRCreatinine [Mass/Vol]1.07 mg/dLHigh0.40-1.00[facility] PPGComment on above:Result Comment: METHOD TRACEABLE TO IDMS STANDARDPerformed By: #### CMP #### [facility] ([facility]) [address] [place] [address] VIRGFR/1.73 sq M.predicted among non-blacks MDRD (S/P/Bld) [Vol rate/Area]71 mL/min/{1.73_m2}Normal>=60[facility]ulatory PPGComment on above:Result Comment: Reported eGFR is based on the CKD-EPI 2020 equation that does not use a race coefficient.Performed By: #### CMP #### [facility] ([facility]) [address] [place] [address] VIRGlucose [Mass/Vol]85 mg/nPRzqxyi67-95FtdWkwfig Hospital Ambulatory PPGComment on above:Performed By: #### CMP #### [facility] ([facility]) [address] [place] [address] VIRPotassium [Moles/Vol]4.0 mmol/LNormal3.5-5.0[facility] PPGComment on above:Performed By: #### CMP #### [facility] ([facility]) [address] [place] [address] VIRProtein [Mass/Vol]7.2 g/dLNormal6.0-8.0[facility] PPGComment on above:Performed By: #### CMP #### [facility] ([facility]) [address] [place] [address] VIRSodium [Moles/Vol]140 mmol/YTtjytm801-094NrrMrnkxi Hospital Ambulatory PPGComment on above:Performed By: #### CMP #### [facility] ([facility]) [address] [place] [address] VIRUrea nitrogen [Mass/Vol]16 mg/dLNormal5-23[facility] PPGComment on above:Performed By: #### CMP #### [facility] ([facility]) [address] [place] [address] VIRHEMOGLOBIN A1Con 05-21-7163Hhlojxu [Mass/Vol]100 mg/dLNormal [facility] PPGComment on above:Performed By: #### HA1C #### [facility] ([facility]) [address] [place] [address] HUTGoS1e (Bld) [Mass fraction]5.1 %Normal4.4-5.6[facility]ulatory PPGComment on above:Result Comment: ADA Guidelines Result HgbA1c Normal : less than 5.7 % Prediabetes : 5.7 % to 6.4 % Diabetes : > 6.4 % Use with caution in patients with abnormal hemoglobin variants as the half-life of red blood cells and in vivo glycation rates are affected.Performed By: #### HA1C #### [facility] ([facility]) [address] [place] [address] VIRVITAMIN D 25 HYDROXYon 26-09-3028CGXLACY D 25 HYD TOT19.5 ng/mLLow30.0-100.0Pro[facility] Ambulatory PPGComment on above:Order Comment: Vitamin D status 25 [place] Vitamin D Deficiency <20 ng/mL Insufficiency 20-29 ng/mL Sufficiency 30-100 ng/mL Toxicity >100 ng/mL NOTE: A pediatric reference range has not been established by the ic designer gate arrays of this kit. The [place] [employer] recommends a Vitamin D level of = or >20ng/mL in infants and children.Performed By: #### VITD #### [facility] ([facility]) [address] [place] [address] VIRColposcopyon 08-27-0459MhjyyМария Carrera LPN 09/14/2024 11:37 AM Colposcopy Date/Time: [...] and paperwork completed: yes Educational handouts given: [facility] HospitalColposcopyOrdered By: Мария Carrera on 04-35-4755GQCFLiberty HospitalHCG ( test) Ql (U)on 09-11-2024 Interpretation and review of laboratory resultsAbnormalLiberty HospitalPreg Test, UrNegativeNegativeNOMissouri Delta Medical Center HealthcareIGP,APTIMA HPV,AGE GDLNon 17-30-3225EPS GDLN ACOG TESTINGNote.[facility] HealthcareComment on above:TESTS RESULT FLAG UNITS REF RANGE LAB Clinician Provided Cytology Information Source.............Cervix;Endocervix No. of containers..01 ThinPrep Vial Age Algo ACOG Sarah... 30-65 01 FLAG LEGEND: L-Low Normal,H-High Normal,LL-Alert Low,HH-Alert High <-Panic Low,>-Panic High,A-Abnormal,AA-Critical Abnormal Performed at: 01 =G [address] [address] Dulce Pham MD, HPV APTIMAPositiveAbnormalNegativeNOMS HealthcareComment on above:This nucleic acid amplification test detects fourteen high- risk HPV types (16,18,31,33,35,39,45,51,52,56,58,59,66,68) without differentiation. Performed at: =G - [facility] [address] [id number] Residential Nurse: Dulce Pham MD, Phone: [phone] Performed at: [facility] [address] [place] [id number] Residential Nurse: Alfred Carlson MD, Phone: [phone] IGP, APTIMA HPV, RFX 16/18,45NoteAbnormal.NOMS HealthcareComment on above:TESTS RESULT FLAG UNITS REF RANGE LAB DIAGNOSIS: [A] 02 EPITHELIAL CELL ABNORMALITY. LOW GRADE SQUAMOUS INTRAEPITHELIAL LESION (LSIL). Recommendation: [A] 02 Suggest follow up as clinically appropriate. Specimen adequacy: 02 Satisfactory for evaluation. Endocervical and/or squamous metaplastic cells (endocervical component) are present. Performed by: Jonatan Trujillo, Director Shopper Marketing (ASCP) Electronically si... 02 Rosalba Fuller MD, [...] High,A-Abnormal,AA-Critical Abnormal Performed at: 02 KWCYT [facility] [address] [place] [address] Alfred Carlson MD, 03 WB [facility] [address] [address] Dulce Pham MD, Interpretation and review of laboratory resultsAbnormalNOLee's Summit Hospital BRUSH-SPATULA CERVIX ENDOCERVIX CLINISYNCNOLee's Summit HospitalCRP [Mass/Vol]on 05-23-2024 REACTIVE PROTEIN0.4 mg/dL Normal0.000-0.744PDoctors HospitalComment on above:Performed By: #### 1988-01 #### [facility] ([id number]) [address] [place] [address], [address] [place], [place] [address]HOB AND AUTO DIFFon 86-87-9189OHFGYURR BASOPHIL0.1 X10E9/LNormal 0.0-0.2PDoctors HospitalComment on above:Performed By: #### ALMA, 12651-5, 1988-01, 82188-8 #### [facility] ([id number]) [address] [facility], [address] [place], [place] [address]CZCWLUDB NEUTROPHIL3.8 X10E9/LNormal1.5-6.6ProTexas Health Arlington Memorial HospitalComment on above:Performed By: #### ALMA, 03629-6, 1988-01, 61035-8 #### [facility] ([id number]) [address] [facility], [address] [place] [address]Exfukvcmj/100 WBC (Bld)0.7 %NormalMercy Health St. [facility] Comment on above:Performed By: #### ALMA, 41735-5, 1988-01, 38390-3 #### [facility] ([id number]) [address], [facility] [address] [place] [address]Dnvnyluqtjy (Bld) [#/Vol]0.3 10*3/uLNormal0.0-0.4Mer[facility] Health St. Joseph Warren HospitalComment on above:Performed By: #### ALMA, 77135-4, 1988-01, 00421-8 #### [facility] ([id number]) [address], [address] [place] [address]Tnkyrqhlonr/100 WBC (Bld)4.1 %NormalMercy Health St. [facility] Comment on above:Performed By: #### ALMA, 39267-2, 1988-01, 46150-6 #### [facility] ([id number]) [address] [address] [place], [place] [address]Ueiyejonxwq distribution width (RBC) [Ratio]13.2 %Normal 11.5-15.0Mercy Health St. Joseph Warren HospitalComment on above:Performed By: #### ALMA, 43934-1, 1988-01, 45036-1 #### [facility] ([id number]) [address], [address] [place], [place] [address]Xwofrtadbl (Bld) [Volume fraction]39.5 %Szvzzx80-43UgtTknjhfTexas Health Arlington Memorial HospitalComment on above:Performed By: #### ALMA, 45224-9, 1988-01, 06481-6 #### [facility] ([id number]) [address], [address] [place], [place] [address]Eajhxsmtvx (Bld) [Mass/Vol]13.6 g/uHCxfhvw97.7-15.5PDoctors HospitalComment on above:Performed By: #### ALMA, 15324-9, 1988-01, 80505-9 #### [facility] ([id number]) [address], [address] [place] [address]Dradzcvpkok (Bld) [#/Vol]2.6 10*3/uLNormal1.0-3.5ProMedica Hazel Hawkins Memorial HospitalComment on above:Performed By: #### ALMA, 16330-0, 1988-01, #### [facility] ([id number]) [address], [address] [place], [place] [address]Nnmdgtxnysx/100 WBC (Bld)37.5 %NormalProTexas Health Arlington Memorial Hospital Comment on above:Performed By: #### ALMA, 64751-0, 1988-01, #### [facility] ([id number]) [address], [address] [place], [place] [address]TRJ (RBC) [Entitic mass]29.2 nfDadocs29-63BtzHkgjreTexas Health Arlington Memorial HospitalComment on above:Performed By: #### ALMA, 11383-8, 1988-01, #### [facility] ([id number]) [address], [address] [place], [place] [address]LVFY (RBC) [Mass/Vol]34.3 g/oJBmcsif06-48NewVbntjaTexas Health Arlington Memorial HospitalComment on above:Performed By: #### ALMA, 28268-8, 1988-01, #### [facility] ([id number]) [address], [address] [place], [place] [address]QSX (RBC) [Entitic vol]85 yTMsvhsz34-717QtlNnjbyg [facility] HospitalComment on above:Performed By: #### ALMA, 00692-8, 1988-01, #### [facility] ([id number]) [address], [address] [place] [address]Pghpsfjtd (Bld) [#/Vol]0.3 10*3/uLNormal0-0.9Mer[facility] St. Joseph Warren HospitalComment on above:Performed By: #### ALMA, 63008-3, 1988-01, #### [facility] ([id number]) [address], [address] [place] [address]Uhibddifb/100 WBC (Bld)3.9 %NormalMercy Health St. [facility] Comment on above:Performed By: #### ALMA, 51378-4, 1988-01, #### [facility] ([id number]) [address], [address] [place] [address]Suziwoggjqy/100 WBC (Bld)53.8 %[facility] Comment on above:Performed By: #### ALMA, 29456-8, 1988-01, #### [facility] ([id number]) [address], [address] [place] [address]Fpuzybvz mean volume (Bld) [Entitic vol]8.5 fLNormal7-[address] Joseph Warren HospitalComment on above:Performed By: #### ALMA, 10240-9, 1988-01, #### [facility] ([id number]) [address], [address] [place] [address]Xfkkoseeo (Bld) [#/Vol]284 10*3/uZWbgocq095-054CccKllrjp [facility] HospitalComment on above:Performed By: #### ALMA, 61666-4, 1988-01, #### [facility] ([id number]) [address], [address] [place] [address]BLO COUNT4.65 X10E12/LNormal3.80-5.20[facility] Comment on above:Performed By: #### AL[place], 82419-5, 1988-01, 81622-9 #### [facility] ([id number]) [address] [address]ZCR (Bld) [#/Vol]7.0 10*3/uLNormal4.0-11.0Mercy Health St. Joseph Warren HospitalComment on above:Performed By: #### ALMA, 37375-5, 1988-01, 14406-1 #### [facility] ([id number]) [address] [place] [address]QWR [Mass/Vol]on 4C REACTIVE PROTEIN2.8 mg/dLHigh 0.000-0.744PMercy Health St. [facility] Hospital on above:Performed By: #### AL[place], 37803-7, 1988-01, 63028-2 #### [facility] ([id number]) [address] [place] [address]PWB Photometric method (Bld) [Velocity]on 20-46-8487UNY, ERYTHROCYTE SEDIMENTATION RATE9 mm/hNormal0-20Mer[facility] St. Joseph Warren HospitalComment on above:Performed By: #### ALMA, 84654-4, 1988-01, 06774-5 #### [facility] ([id number]) [address] [place] [address]Qkuoyuh Ab IA Ql (S)on 42-64-4459IXR Screen w/reflexNegative NormalNEGProTexas Health Arlington Memorial HospitalComuniversity of michigan health–west on above:Result Comment: Testing performed using multiplex flow immunoassay. Eleven different antigens associated with systemic autoimmune diseases (dsDNA,Sm,Sm/FORGING PRESS LEVER TENDER,FORGING PRESS LEVER TENDER,Chromatin, SSA,SSB,Stephanie-1,Scl70,Ribo P,Centromere B) are included in this screening test.Performed By: #### ALMA, 88292-3, 1988-01, 31434-2 #### [facility] ([id number]) [address] [place] [address], [place] [address]SOV A1C (GLYCO-HGB)on 46-39-8543Relhfwk [Mass/Vol]94 mg/dLNormal [facility] FoundationComment on above:Performed By: #### ANGELO, 46389-4, TSHR #### [facility] ([id number]) [address] [facility], [address] [place], [place] [address]AjQ7f (Bld) [Mass fraction]4.9 %Normal4.4-5.6C[facility] Clinic FoundationComment on above:Result Comment: NOTE ADA Guidelines Result HgbA1c Normal : less than 5.7 % Prediabetes : 5.7 % to 6.4 % Diabetes : > 6.4 % Use with caution in patients with abnormal hemoglobin variants as the half-life of red blood cells and in vivo glycation rates are affected.Performed By: ###Golden STEPHENS, 98718-7, TSHR #### [facility] ([id number]) [address] [facility], [address] [place], [place] [address]Ahsirwnjug A1con 08-11-5330Dfxlmnp glucose Estimated from glycated hemoglobin (Bld) [Mass/Vol]94 mg/dLMount Carmel Health SystemHbA1c (Bld) [Mass fraction]4.9 %4.4 - 5.6 %[facility] SystemComment on above:NOTE ADA Guidelines Result HgbA1c Normal : less than 5.7 % Prediabetes : 5.7 % to 6.4 % Diabetes : > 6.4 % Use with caution in patients with abnormal hemoglobin variants as the half-life of red blood cells and in vivo glycation rates are affected. [facility] Health SystemLipid 1996 panelon 63-88-8193Jjypconodyu [Mass/Vol]141 mg/iOBji045 - 200 mg/dLMount Carmel Health SystemCholesterol in HDL [Mass/Vol]57 mg/dL39 - PINF mg/dLMount Carmel Health SystemComment on above: HDL <40 mg/dL - High Risk HDL > or = 40mg/dL- Desirable HDL >60 mg/dL - Negative Risk Cholesterol in LDL [Mass/Vol]60 mg/dLNINF - 130 mg/dLMount Carmel Health System Comment on above: LDL <100 mg/dL - Desirable LDL >160 mg/dL - High Risk Cholesterol in VLDL [Mass/Vol]24 mg/dL0 - 30 mg/dLMount Carmel Health System Cholesterol.total/Cholesterol in HDL [Mass ratio]2.5 {ratio}1.0 - 5.0[facility] Health SystemInterpretation and review of laboratory resultsAbnormalMount Carmel Health SystemTriglyceride [Mass/Vol]122 mg/dL27 - 150 mg/dLMeadville Medical CenterCholesterol [Mass/Vol]141 mg/mFXnk874-800EgmUxlthnCleveland Clinic FoundationComment on above:Performed By: Cyndy STEPHENS 76240-7, TSHR #### [facility] ([id number]) [address] [facility], [address] [place], [place] [address]Wxryxdfwxwg in HDL [Mass/Vol]57 mg/dLNormal>39ProKettering Health PrebleComment on above:Result Comment: HDL <40 mg/dL - High Risk HDL > or = 40mg/dL- Desirable HDL >60 mg/dL - Negative Risk Performed By: #Augustus STEPHENS, 51570-5, TSHR #### [facility] ([id number]) [address] [facility], [address] [place], [place] [address]Aifvecyemep in LDL [Mass/Vol]60 mg/dLNormal<130ProMercy Health Clermont Hospital HospitalComment on above:Result Comment: LDL <100 mg/dL - Desirable LDL >160 mg/dL - High Risk Performed By: ###De RAY-1, TSHR #### [facility] ([id number]) [address], [address] [place], [place] [address]Lrgfsvjhjrp in VLDL [Mass/Vol]24 mg/dLNormal0-30ProMercy Health Clermont Hospital HospitalComment on above:Performed By: ###Kit RAY31-1, TSHR #### [facility] ([id number]) [address] [address] [place], [place] [address]ZFOOOAQQAVI:HDL2.4Dzpuyc4.0-5.0ProMercy Health Clermont Hospital HospitalComment on above:Performed By: #De DOTY-1, TSHR #### [facility] ([id number]) [address] [facility] [address] [place], [place] [address]Fjkgojriwdui [Mass/Vol]122 mg/aZLfeyqk26-829FibEulcoj [place] HospitalComment on above:Performed By: ###De RAY-1, TSHR #### [facility] ([id number]) [address] [facility] [address] [place], [place] [address]IXUJ EKGon 10-57-0829TfoQtnlciAvita Health System Ontario HospitalTS WITH REFLEXon 83-11-0424DMJ1.20 uIU/mLNormal0.49-4.67ProMercy Health Clermont Hospital HospitalComment on above:Performed By: ##Kit VALENZUELA31-1, TSHR #### [facility] ([id number]) [address] [address] [place], [place] [address]YNF with Reflexon 93-73-7544CLI Qn1.20 m[IU]/[facility] SystemS[facility] ACOG PANEL 2: 21 to on 04-14-2022..NormalThe [facility] on above:Performed By: #### [id number] #### [facility] [address] [place] [address] Dr. Vish MohrAge Gdln ACOG Omlgtpd45-52GqyxqvPtaOhioHealth Nelsonville Health Center on above:Performed By: #### [id number] #### [facility] [address] [place] [address] Dr. Vish MohrDIAGNOSIS:CommentUniversity Hospitals Geauga Medical Center on above: Result Comment: NEGATIVE FOR INTRAEPITHELIAL LESION OR MALIGNANCY.Performed By: #### [id number] #### [facility] [address] [place] [address] Dr. Vish MohrMethodology:CommentUniversity Hospitals Geauga Medical Center on above: Result Comment: This liquid based ThinPrep(R) pap test was screened with the use of an image guided system.Performed By: #### [id number] #### [facility] [address] [place] [address] Dr. Vish MohrNote:CommentUniversity Hospitals Geauga Medical Center on above:Result Comment: The Pap smear is a screening test designed to aid in the detection of premalignant and malignant conditions of the uterine cervix. It is not a diagnostic procedure and should not be used as the sole means of detecting cervical cancer. Both false-positive and false-negative reports do occur. .Performed By: #### [id number] #### [facility] [address] [place] [address] Dr. Vish MohrPerformed by:CommentUniversity Hospitals Geauga Medical Center on above: Result Comment: Omer Negron Director Shopper Marketing (ASCP)Performed By: #### [id number] #### [facility] [address] [place] [address] Dr. Vish MohrReflex Criteria:CommentUniversity Hospitals Geauga Medical Center on above:Result Comment: The HPV DNA reflex criteria were not met with this specimen result therefore, no HPV testing was performed. .Performed By: #### [id number] #### [facility] [address] [place] [address] Vish MohrSpecimen adequacy:CommentKettering Health SpringfieldComment on above:Result Comment: Satisfactory for evaluation. Endocervical and/or squamous metaplastic cells (endocervical component) are present.Performed By: #### [id number] #### [facility] [address] [place], [place] [address] Dr. Vish Mohr Vital Signs Date TimeVital SignValuePerforming HdaqrxakeEisayrpp60-87-8001 11:-040Body .8 cmAssumpta Fatumaaji HEALTH SAFETY SPECIALIST-MORNING SHOW [employer] Work Phone: [address] [place], [place] 2077210-10-2025 11:22-040Body mass index (BMI) [Ratio]36.52 kg/u0Pprsqtse Senthil HEALTH SAFETY SPECIALIST-MORNING SHOW [employer]ER Work Phone: [phone] [place], [place] 6896010-10-2025 11:-040Body pnrxwahremf50.49 [degF]Assumpta ablaise HEALTH SAFETY SPECIALIST-MORNING SHOW [employer]ER Work Phone: [phone] [place], [place] 6896010-10-2025 11:-040Body gyezuk49.57 kgAssumpta Fatumaaji HEALTH SAFETY SPECIALIST-MORNING SHOW [employer]ER Work Phone: [address] [place], [place] 2077210-10-2025 11:-040Diastolic blood imcelsci36 mm[Hg]Assumpta Fatumaaji HEALTH SAFETY SPECIALIST-MORNING SHOW [employer]ER Work Phone: [phone] [place], [place] 6896010-10-2025 11:22-040Heart rate 78 /minAssumpta aji HEALTH SAFETY SPECIALIST-MORNING SHOW [employer]ER Work Phone: [phone] [place], [place] 6896010-10-2025 11:22-4657NzF7% (BldA) [Mass fraction]97 %Assumpta Fatumaaji HEALTH SAFETY SPECIALIST-MORNING SHOW [employer]ER Work Phone: [address] [place], [place] 2077210-10-2025 11:22040Systolic blood pldpqgiy662 mm[Hg]Assumpta [facility] HospitalValderm HEALTH SAFETY SPECIALIST-MORNING SHOW [employer]ER Work Phone: [facility]01-16-2025 15:06-0500Body ijmici504.8 Ashia Waterman HEALTH SAFETY SPECIALIST-MORNING SHOW [employer]ER Work Phone: [facility]01-16-2025 15:06-0500Body mass index (BMI) [Ratio]34.57 kg/d8Pgjeuuzvclyric Waterman HEALTH SAFETY SPECIALIST-MORNING SHOW [employer]ER Work Phone: [facility]01-16-2025 15:06-0500Body raapyskkudd21.81 [degF]Eh Waterman HEALTH SAFETY SPECIALIST-MORNING SHOW [employer]ER Work Phone: [facility]01-16-2025 15:06-0500Body pfquoj58.48 kgAlelyric Waterman HEALTH SAFETY SPECIALIST-MORNING SHOW [employer]ER Work Phone: [facility]01-16-2025 15:06-0500Diastolic blood hvcithnb79 mm[Hg]Eh Waterman HEALTH SAFETY SPECIALIST-MORNING SHOW [employer]ER Work Phone: [facility]01-16-2025 15:06-0500Heart rate 88 /minAlelyric Waterman HEALTH SAFETY SPECIALIST-MORNING SHOW [employer] Work Phone: [facility]01-16-2025 15:06-6524HrO8% (BldA) [Mass fraction]97 %Eh Waterman HEALTH SAFETY SPECIALIST-MORNING SHOW [employer]ER Work Phone: [facility]01-16-2025 15:06-0500Systolic blood qvbsmvje085 mm[Hg]Eh Waterman HEALTH SAFETY SPECIALIST-MORNING SHOW [employer]ER Work Phone: [facility]12-19-2024 12:18-0500Body mass index (BMI) [Ratio]28.42 kg/a9Sftdd Gisel DO Work Phone: [facility] HospitalNxvbmislal05-29-7342 12:18-0500Body bingaf12.49 kgCorey Gisel DO Work Phone: [facility] HospitalZykwrryjwx45-71-5269 12:18-0500Diastolic blood kwmqofow56 mm[Hg]Jie Gisel DO Work Phone: [phone]-[facility] HospitalCqoyqnscvj57-47-9138 12:18-0500Systolic blood syvgbtwf852 mm[Hg]Jie Gisel DO Work Phone: [phone] [place], [place] [address]Cqafmpiejp18-70-8326 13:27-0500Body mass index (BMI) [Ratio]29.59 kg/z7Jwoxg Gisel DO Work Phone: [phone] [place], [place] [address]Lfhtzypxbx25-89-8627 13:27-0500Body bgmftu96.39 kgCoreludmila Maco DO Work Phone: [phone] [place] [address]-12-2024 13:27-0500Diastolic blood raeawmwv34 mm[Hg]Jie Gisel DO Work Phone: [phone] [place], [place] [address]Kguagyozsa25-07-4586 13:27-0500Systolic blood jmooxkhm564 mm[Hg]Jie Gisel DO Work Phone: [phone] [place], [place] [address]Dvvoithctq71-12-7196 10:37-0500Body mass index (BMI) [Ratio]35 kg/l2Boxchkzri Waterman HEALTH SAFETY SPECIALIST-MORNING SHOW [employer] Work Phone: [facility]11-07-2024 10:37-0500Body ycakmfzgomg33.9 [degF]Eh Lanejas HEALTH SAFETY SPECIALIST-MORNING SHOW [employer]ER Work Phone: [facility]11-07-2024 10:37-0500Body .39 kgAlexajuan carlos Waterman HEALTH SAFETY SPECIALIST-MORNING SHOW [employer] Work Phone: [facility]11-07-2024 10:37-0500Diastolic blood cxxypltr72 mm[Hg]Eh Waterman HEALTH SAFETY SPECIALIST-MORNING SHOW [employer] Work Phone: [facility]11-07-2024 10:37-0500Heart rate 75 /minAlelyric Waterman HEALTH SAFETY SPECIALIST-MORNING SHOW [employer] Work Phone: [facility]11-07-2024 10:37-6793JvB5% (BldA) [Mass fraction]97 %Eh Waterman HEALTH SAFETY SPECIALIST-MORNING SHOW [employer]ER Work Phone: [facility]11-07-2024 10:37-0500Systolic blood cmmkiulp927 mm[Hg]Eh Waterman HEALTH SAFETY SPECIALIST-MORNING SHOW [employer] Work Phone: [facility]08-08-2024 15:24-0400Body rkpzso553.8 cmAmorales Waterman HEALTH SAFETY SPECIALIST-MORNING SHOW [employer] Work Phone: [facility]08-08-2024 15:24-0400Body mass index (BMI) [Ratio]35.05 kg/o9Negxvtfkilyric Waterman HEALTH SAFETY SPECIALIST-MORNING SHOW [employer] Work Phone: [facility]08-08-2024 15:24-0400Body uadsgasjorq93.2 [degF]Eh Waterman HEALTH SAFETY SPECIALIST-MORNING SHOW [employer] Work Phone: [facility] [employer] Dhuwvz49-00-5773 15:24-0400Body .48 kgAlelyric Waterman HEALTH SAFETY SPECIALIST-MORNING SHOW [employer] Work Phone: [facility] [employer] Vbgice51-15-6539 15:24-0400Diastolic blood ympcgtjc22 mm[Hg]Eh Waterman HEALTH SAFETY SPECIALIST-MORNING SHOW [employer] Work Phone: [facility]08-08-2024 15:24-0400Heart rate 76 /minAlelyric Waterman HEALTH SAFETY SPECIALIST-MORNING SHOW [employer] Work Phone: [facility]08-08-2024 15:24-5189BcT9% (BldA) [Mass fraction]97 %Eh Waterman HEALTH SAFETY SPECIALIST-MORNING SHOW [employer] Work Phone: [facility] [employer] Nfvrta24-93-7359 15:24-0400Systolic blood yyitykaq332 mm[Hg]Eh Waterman HEALTH SAFETY SPECIALIST-MORNING SHOW [employer]ER Work Phone: [facility]05-02-2024 13:31-0400Body osayya302.8 Iainmorales Waterman HEALTH SAFETY SPECIALIST-MORNING SHOW [employer] Work Phone: [facility]05-02-2024 13:31-0400Body mass index (BMI) [Ratio]33.33 kg/a7Cbnmsyvnelyric Waterman APRN-SHERRON Work Phone: [facility]05-02-2024 13:31-0400Body hfcmdojudod62.91 [degF]Eh Waterman HEALTH SAFETY SPECIALIST-MORNING SHOW [employer] Work Phone: [facility]05-02-2024 13:31-0400Body uswzke86.85 kgAlelyric Waterman HEALTH SAFETY SPECIALIST-MORNING SHOW [employer] Work Phone: [facility]05-02-2024 13:31-0400Diastolic blood ilszpydk42 mm[Hg]Eh Waterman APRN-MORNING SHOW [employer] Work Phone: [facility]05-02-2024 13:31-0400Heart rate 71 /minAlelyric Waterman APRN-SHERRON Work Phone: [facility]05-02-2024 13:317867FzS5% (BldA) [Mass fraction]98 %Eh Waterman APRN-MORNING SHOW [employer]ER Work Phone: [facility]05-02-2024 13:310400Systolic blood rykxtcqw427 mm[Hg]Eh Waterman APRN-MORNING SHOW [employer] Work Phone: [facility] Encounters Encounter DateEncounter TypeCare ProviderFacilityStart: 07-03-2025 End: 90-09-3542Uemgkq outpatient visit 15 minutesAssumpta N Nnсветланаji HEALTH SAFETY SPECIALIST-MORNING SHOW [employer]ER Work Phone: [facility] Physicians Family MedicineComment on above: Moderate episode of recurrent major depressive disorder (CMS-HCC) (Primary Dx); Anxiety; Encounter for other contraceptive management; Persistent depressive disorder; Vitamin D deficiencyStart: 07-03-2025 End: 65-02-6521vhgicbyndeGGDGRWWC N FATUMAJIEast [facility] Ambulatory PPGStart: 03-12-2025 End: 11-58-1004Lkhwjc flowsheetCorey Gisel DO Work Phone: [facility] BCP OBStart: 03-12-2025 End: 05-42-2451Tzxfpm flowsheetCorey Gisel DO Work Phone: [facility] BCP OBStart: 03-12-2025 End: 60-19-5225Pioneskev Result EncounterCorey Gisel DO Work Phone: [facility] External Department UnsolicitedStart: 03-12-2025 End: 85-75-4109Powqps outpatient visit 10 minutesCorey Giesl DO Work Phone: [facility] BCP OBComment on above:LGSIL of cervix of undetermined significance; Well woman exam with routine gynecological examStart: 03-12-2025 End: 22-44-4958Shixssu encounter procedureCorey Gisel DO Work Phone: noms HealthcareStart: 03-12-2025 End: 46-44-7064lhvccwnizdUJENY FAZIONot AvailableStart: 03-06-2025 End: 60-19-6786Xhpvlfvpx encounterMersonia NAVARROAProMedrukhsana Physicians Family MedicineComment on above:ResultsStart: 03-06-2025 End: 78-36-7574Xortli outpatient visit 15 minutesAlexajuan carlos Waterman HEALTH SAFETY SPECIALIST-MORNING SHOW [employer] Work Phone: [facility] Physicians Family MedicineComment on above: Herpes zoster without complicationStart: 03-06-2025 End: 23-32-8619nhdjvhqgfwZCIZWBKIJMidCoast Medical Center – Central Ambulatory PPGStart: 12-03-5369kacoutqmjyJSWYUVSEUMetroHealth Cleveland Heights Medical Centertart: 02-12-2025 End: 58-86-4999fqxeqjnjwxMVNBXJEBMCatskill Regional Medical Center Ambulatory PPGStart: 02-05-2025 End: 32-56-1881Cnqzuzg encounter statusAlexajuan carlos Watemran HEALTH SAFETY SPECIALIST-MORNING SHOW [employer]ER Work Phone: [facility] SystemStart: 02-05-2025 End: 00-00-5646Zrudqjub SupportAlexajuan carlos Waterman HEALTH SAFETY SPECIALIST-MORNING SHOW [employer] Work Phone: [facility] Physicians Family MedicineComment on above: Wellness examination; Skin candidiasis; Insomnia, unspecified typeStart: 10-09-2024 End: 85-78-9069Pjnwjao encounter statusAlelyric Waterman APRN-MORNING [employer] Work Phone: [facility] [employer] Work Phone: Start: 10-09-2024 End: [id number] preventive med est patient 18-39 yrsAlexajuan carlos Demarco HEALTH SAFETY SPECIALIST-[employer]ORNING [employer] Work Phone: [facility] Family MedicineComment on above: Wellness examination (Primary Dx); Insomnia, unspecified type; Skin candidiasisStart: 10-09-2024 End: [id number]ast Medical Center [facility] Ambulatory PPGStart: 80-39-3941Xghwplkwb for general adult medical examination without abnormal findingsMidCoast Medical Center – Central Ambulatory PPGStart: 09-11-2024 End: 96-85-6305Pxguboi encounter procedureCorey Gisel DO Work Phone: [facility] OBComment on above:LGSIL of cervix of undetermined significanceStart: 09-11-2024 End: 70-63-8721esygmdxplrFXWCE FAZIONot AvailableStart: 09-02-2024 End: 96-32-2693SrpktdDkoyqjdfe Waterman HEALTH SAFETY SPECIALISTMC[facility] Work Phone: [facility] MedicineComment on above: Persistent depressive disorderStart: 08-05-2024 End: 57-97-7736Exbymq flowsheetCorey Gisel DO Work Phone: [facility] BCP OBStart: 08-05-2024 End: 93-40-3832Zltpby flowsheetCorey Gisel DO Work Phone: [facility] BCP OBStart: 08-05-2024 End: 55-41-0937Bhhdjnkjr Result EncounterCorey Gisel DO Work Phone: [facility] External Department UnsolicitedStart: 08-05-2024 End: 30-00-7246vojrubwjezXAKJN FAZIONot AvailableStart: 08-05-2024 End: 79-69-5302Gmkngft encounter procedureCorey Gisel DO Work Phone: [facility] Work Phone: Start: 08-05-2024 End: 21-74-8747Pevkzyhe preventive med est patient 18-39 yrsCorey Gisel DO Work Phone: NOGW BCP OBComment on above:Well woman exam with routine gynecological exam; Skin yeast infectionStart: 07-31-2024 End: 83-71-5553Nhdtxm outpatient visit 15 minutesAlelyric Waterman HEALTH SAFETY SPECIALIST-MORNING SHOW [employer] Work Phone: [facility] MedicineComment on above: Insomnia, unspecified type (Primary Dx); Persistent depressive disorder; Dry skin; Skin candidiasisStart: 07-31-2024 End: 87-76-9211vcxefebdnuTJRZAKGXPTexas Health [facility] PPGStart: 07-25-2024 End: 40-35-1312UbejqhWrmamyyxu Waterman HEALTH SAFETY SPECIALIST-MORNING SHOW [employer]ER Work Phone: [facility] MedicineStart: 06-18-2024 End: 31-96-7699Tjqxsn OnlyAlexajuan carlos Horans HEALTH SAFETY SPECIALIST-MORNING SHOW [employer]ER Work Phone: [facility] MedicineComment on above: Encounter for other contraceptive management (Primary Dx)Start: 06-12-2024 End: 63-12-1779Anxrjz OnlyAlelyric Horans HEALTH SAFETY SPECIALIST-MORNING SHOW [employer]ER Work Phone: [facility] MedicineComment on above: Encounter for female controlStart: 06-10-2024 End: 22-30-5689XeghhjJiqcfhico Waterman HEALTH SAFETY SPECIALIST-MORNING SHOW [employer]ER Work Phone: [facility] MedicineComment on above: Persistent depressive disorderStart: 05-27-2024 End: 68-10-5239Mafrdqpri encounterElodia Kumar CMAProMedica Physicians Family MedicineStart: 05-23-2024 End: 17-13-2779cpthhiyclhMPREQHJPR [facility] Daytontart: 05-01-2024 End: 19-49-1942Dpxzgn outpatient visit 10 minutesAlelyric Horans HEALTH SAFETY SPECIALIST-MORNING SHOW [employer]ER Work Phone: [facility] Family MedicineComment on above: Family history of systemic lupus erythematosus (SLE) in mother (Primary Dx); Encounter for female control; Contact dermatitis, unspecified contact dermatitis type, unspecified trigger Start: 04-22-2024 End: 98-25-8407wnbetanvbaCQRJYVNHJMetroHealth Cleveland Heights Medical Centertart: 04-14-2024 End: 94-44-1108Zilbtq OnlyEh Waterman HEALTH SAFETY SPECIALIST-MORNING SHOW [employer]UCER Work Phone: [facility] Family MedicineComment on above: Skin irritation (Primary Dx)Skin irritation (Primary Dx); Family history of systemic lupus erythematosus (SLE) in mother; Persistent depressive disorder; Fatigue, unspecified type; Arthralgia of multiple jointsStart: 04-07-2024 End: 44-48-1563Fdwcip OnlyAlelyric Horans HEALTH SAFETY SPECIALIST-MORNING SHOW [employer]ER Work Phone: [facility] MedicineStart: 04-04-2024 End: 92-45-7869Mtscud outpatient visit 10 minutesAlelyric Horans HEALTH SAFETY SPECIALIST-MORNING SHOW [employer]ODUCER Work Phone: [facility] Family MedicineComment on above: Family history of systemic lupus erythematosus (SLE) in mother (Primary Dx); Persistent depressive disorder; Fatigue, unspecified type; Arthralgia of multiple jointsStart: 03-22-2024 End: 36-38-9476KedxhrChcipxhbj Waterman HEALTH SAFETY SPECIALIST-MORNING SHOW [employer]ER Work Phone: [facility] MedicineStart: 02-12-2024 End: 42-34-9090Dxaa/qhp telephone evaluation 5-10 minEh Waterman HEALTH SAFETY SPECIALIST-MORNING [employer]OW [employer]ER Work Phone: [facility] Comment on above:Class 3 severe obesity without serious comorbidity in adult, unspecified BMI, unspecified obesity type (CMS-HCC) (Primary Dx); Encounter for weight managementStart: 01-24-2024 End: 37-15-9187hanmqahswnOKFVZTNAZ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 anxiety, she also has insomnia. She is taking trazodone for insomnia and it seems to be working well for her sleep. However she does not think that Zoloft is working anymore. Plan Increase the dose of Zoloft 100 mg I also gave her emotional support due to all the issues and she is going through at home. We discussed different ways of dealing with depression and anxiety. Side effects of prescribed medications reviewed with the patient. All the pertinent questions were answered. Patient noted to have elevated BMI and the following intervention(s) were applied: encouragement toexercise and prescribed diet education. Encouraged more protein, more vegetables and less carbohydrate meals to help with weight loss Encouraged patient patient to choose food that she likes to help improve her appetite Exercises can also help with weight loss as well as emotional stress relief. Return in about 1 month (around 08/03/2025) for depression and anxiety. This note is created with the assistance of a speech recognition program. While intending to generate a document that actually reflects the content of the visit, the document can still have some errors including those of syntax and sound a like substitutions which may escape proof reading. It such instances, actual meaning can be extrapolated by contextual diversion. CHUY Garg 07/03/25 1228 documented in this encounterMount [facility]el [facility] System06-19-2025 History of Present illness Narrative* JOSEPH Chavarria - 03/12/2025 11:00 AM EDT Reason for Appointment: Patient ID: Rani Noe is a 29 y.o. female who presents for Repeat Pap Patient presents today for Repeat Pap. MEDICATIONS Current Outpatient Medications Medication Instructions amitriptyline (ELAVIL) 25 mg, Nightly cholecalciferol (VITAMIN D-3) 50,000 Units, Every 7 days gabapentin (NEURONTIN) 400 mg, 3 times daily ibuprofen 600 mg, 2 times daily with meals Phexxi 1.8-1-0.4 % gel 1 Application, Daily PRN sertraline (ZOLOFT) 50 mg, Daily RT traZODone (DESYREL) 100 mg, Nightly ALLERGIES No Known Allergies PROBLEMS Active Ambulatory Problems Diagnosis Date Noted No Active Ambulatory Problems Resolved Ambulatory Problems Diagnosis Date Noted No Resolved Ambulatory Problems Past Medical History: Diagnosis Date BMI 26.0-26.9,adult Breast pain Depression Depression screening Erythema of skin Menorrhagia with regular cycle Patient desires Well woman exam HISTORY PAST MEDICAL HISTORY SOCIAL HISTORY Past Medical History: Diagnosis Date BMI 26.0-26.9,adult Breast pain Depression Depression screening Erythema of skin Menorrhagia with [...] appearance. She is well-developed. Genitourinary: Vulva normal. Right Adnexa: not tender and no mass present. Left Adnexa: not tender and no mass present. No cervical discharge. HENT: Head: Normocephalic. Nose: Nose normal. Mouth/Throat: Mouth: Mucous membranes are moist. Cardiovascular: Rate and Rhythm: Normal rate and regular rhythm. Pulmonary: Effort: Pulmonary effort is normal. Breath sounds: Normal breath sounds. Abdominal: General: Bowel sounds are normal. There is no distension. Palpations: Abdomen is soft. Tenderness: There is no abdominal tenderness. There is no guarding or rebound. Musculoskeletal: General: No swelling. Normal range of motion. Cervical back: Normal range of motion. Right lower leg: No edema. Left lower leg: No edema. Neurological: General: No focal deficit present. Mental Status: She is alert and oriented to person, place, and time. Skin: General: Skin is warm and dry. Psychiatric: Mood and Affect: Mood normal. Behavior: Behavior normal. Vitals and nursing note reviewed. Exam conducted with a folder gluer operator present. Vitals: Estimated body mass index is 28.42 kg/m as calculated from the following: Height as of 01/15/23: 5' 2 . Weight as of 09/11/24: 155 lb 6.4 oz. BP: No LMP recorded. ASSESSMENT & PLAN ICD-10-CM 1. LGSIL of cervix of undetermined significance R87.612 2. Well woman exam with routine gynecological exam Z01.419 Pap Smear HPV DNA probe, amplified Repeat Pap: Patient presents today for a repeat pap. Previous pap results were reviewed and noted to be LGSIL. Question regarding previous results were discussed. Repeat Pap was obtained without difficulty. Follow Up: Patient is to return to the office in 6 months for an annual exam. Documented by JOSEPH Chavarria on behalf of: Jie Batres DO documented in this encounterLiberty [id number] Miscellaneous Notes* Telephone Encounter - Chanelle Underwood CNA - 03/06/2025 1:58 PM EDT Attempted to call patient with no answer. Left voicemail to call office. ----- Message from CHUY Amaya sent at 03/02/2025 6:29 PM EDT ----- Labs are WNL ----- Message ----- From: Lab, Background User Sent: 02/24/2025 6:10 PM EDT To: CHUY Amaya documented in this encounterMount Carmel Health System06-13-2025 Telephone encounter Note* Telephone Encounter - Chanelle Underwood CNA - 03/06/2025 1:58 PM EDT Attempted to call patient with no answer. Left voicemail to call office. ----- Message from CHUY Amaya sent at 03/02/2025 6:29 PM EDT ----- Labs are WNL ----- Message ----- From: Chasidy, Background User Sent: 02/24/2025 6:10 PM EDT To: CHUY Amaya [facility] History of Present illness Narrative* CHUY Amaya - 03/06/2025 10:40 AM EDT Images from the original note were not included. Subjective Patient ID: Rani Noe is a 29 y.o. female. Video Visit via Real-time Synchronous Audiovisual Provider Location: [facility] [address] [place] [id number] Patient Location: Other Video Visit Consent Statement: [...] that there are some limitations compared to neyq-xo-imtp evaluations. The patient consented to the presence [...] CHUY Amaya 03/08/25 1123 documented in this encounterMount Carmel Health System05-15-2025 History of Present illness Narrative* Brenda Nesbitt CMA - 02/05/2025 8:00 AM EDT Patient is here for nurse visit. They are here for a lab draw. Venipuncture performed in the left arm. Patient had no adverse reactions. Brenda Nesbitt CMA documented in this encounterMount Carmel Health System01-16-2025 History of Present illness Narrative* CHUY Amaya - 10/09/2024 3:00 PM EST Subjective Patient ID: Rani Noe is a [...] andpost discharge medication. Review of Systems Constitutional: Negative [...] visit. PAP up to date with women's [employer]. She had breast exam completed with women's [...] to both eyes in the morning and 1drop before bedtime. - nystatin-triamcinolone (MYCOLOG II) cream; Apply 1 Application topically in the morning and 1 Application at noon and 1 Application in the evening and 1 Application before bedtime. - nystatin (MYCOSTATIN) powder; Apply 1 Application topically in the morning and 1 Application before bedtime. CHUY Amaya 10/09/24 1715 documented in this encounterHolzer Health SystemIJJ CORP [id number] History of Present illness Narrative* Radha Durham, DILIA - 09/11/2024 11:30 AM ESTAssociated Order(s): Colposcopy Post-Procedure Diagnose(s): LGSIL of cervix of undetermined significance Reason for Appointment: Patient ID: Rani Noe is a 29 y.o. female who presents for No chief complaint on file. Patient presents today for a Colposcopy appointment. MEDICATIONS Current Outpatient Medications Medication Instructions nystatin (Mycostatin) 990142 UNIT/GM powder Topical, 3 times daily sertraline [...] nursing note reviewed. Exam conducted with a folder gluer operator present. Vitals: Estimated body mass index is [...] of: Jie Batres DO documented in this encounterLiberty [id number] History of Present illness Narrative* Joyce Moralez LPN - 08/05/2024 1:00 PM EST Reason for Appointment: Patient ID: Rani Noe [...] nursing note reviewed. Exam conducted with a folder gluer operator present. Vitals: Estimated body mass index is [...] of: Jie Batres DO documented in this encounterLiberty [id number] History of Present illness Narrative* Eh Waterman APRN-[employer] - 07/31/2024 10:40 AM EST Subjective Patient ID: Rani Noe is a [...] longer having headache. Her sleep is better withcurrent regimen of trazodone 100 mg. She is [...] CHUY Amaya 07/31/24 1446 documented in this [facility]09-03-2024 Miscellaneous Notes* Telephone Encounter - Elodia Kumar CMA - 05/27/2024 1:20 PM EDT ----- Message from CHUY Amaya sent at 05/25/2024 5:48 PM EDT ----- Please let her know negative result. * Telephone Encounter - Elodia Kumar CMA - 05/27/2024 1:20 PM EDT Called patient to let her know about results, she verbalized understanding documented in this encounterMount Carmel Health System09-03-2024 Telephone encounter Note* Telephone Encounter - Elodia Kumar CMA - 05/27/2024 1:20 PM EDT ----- Message from CHUY Amaya sent at 05/25/2024 5:48 PM EDT ----- Please let her know negative result. [facility]09-03-[facility] Telephone encounter Note* Telephone Encounter - Elodia Kumar CMA - 05/27/2024 1:20 PM EDT Called patient to let her know about results, she verbalized understanding [facility]08-08-[facility] History of Present illness Narrative* Eh Waterman, HEALTH SAFETY SPECIALIST-[employer] - 05/01/2024 3:30 PM EDT Subjective Patient ID: Rani Noe is a [...] to breath sharp, stabbing, left upper chest. Lastedthe one day. It occurred on a day [...] andpost discharge medication. Review of Systems Constitutional: Positive for fatigue. Negative for chills, diaphoresis, fever and unexpected weightchange. Respiratory: Negative for cough, chest tightness, shortness [...] is not tolerating hormonal control. She has triedoral medications, patches, IUD. But everything side effects. [...] Future Encounter for female control - lactic mqsy-qtvbpa-yqgswmdbl (PHEXXI) 1.8-1-0.4 % gel; Insert 1 Application into the vagina as needed (with intercourse). Contact dermatitis, unspecified contact dermatitis type, unspecified trigger Other orders - triamcinolone (KENALOG) 0.5 % ointment; Apply 1 Application topically in the morning and 1 Application before bedtime. - magnesium oxide (MAGOX) 400 mg tablet; Take 1 tablet (400 mg total) by mouth in the morning. CHUY Amaya 05/10/24 1513 documented in this encounterMount Carmel Health System07-12-2024 History of Present illness Narrative* CHUY Amaya - 04/04/2024 11:15 AM EDT Subjective Patient ID: Rani Noe is a [...] total) by mouth nightly. CHUY Amaya 04/10/24 0912 documented in this [facility]05-21-2024 History of Present illness Narrative* CHUY Amaya - 02/12/2024 9:30 AM EDT Subjective Patient ID: Rani Noe is a 28 y.o. female. Telephone Visit via Real-time Audio-only Provider Location: Login Department Patient Location: Patient's home Telephone Visit Consent Statement: I discussed risks, benefits, and alternatives of a real-time synchronous audio consultation with the patient (and any accompanying persons) including the risks thatthe patient's personal health details and medical records will be discussed over real-time, synchronous, audio-only telecommunication technology, and that there are some limitations compared to mozs-cm-ckwl evaluations. We elected to proceed. Total time spent on the phone with the patient: 9 minutes. HPI Saravia presents via telephone visit as she has questions about labs. Lipid profile unremarkable, TSH WNL, hgbA1c normal. Saravia was concerned about her cholesterol level being low. However, it is only slightly below normaland therefore is unremarkable. The following portions of the patient's history were reviewed and updated as appropriate: allergies, current medications, past family history, past medical history, past social history, past surgicalhistory, problem list, and medication reconciliation was completed including current medication andpost discharge medication. Review of Systems Constitutional: Negative [...] telephone visit. Rani is answering appropriately and doesnot sound to be in acute distress. Assessment/Plan [...] in adult, unspecified BMI, unspecified obesity type ([facility]) Encounter for weight management CHUY Amaya 02/17/241 documented in this encounterMount Carmel Health System05-02-2024 History of Present illness Narrative* Eh Waterman, HEALTH SAFETY SPECIALIST-[employer] - 01/24/2024 1:30 PM EDT Subjective Patient ID: Rani Noe is a 28 y.o. female. HPI Rani presents to the office for follow up on depression. She has been on zoloft, and this is working well for her. She was having difficulty with sleep so I sent in low dose trazodone. She feels thisis working well for her. Today: ZAY- 5, Depression 8. Concerned about her weight. She is not overeating. 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 [employer]. Has been on this for over a [...] knocked over last week. Her knee gave outwhen the dog ran into her and she [...] medical history, past social history, past surgicalhistory, and problem list. Review of Systems Constitutional: [...] cramps CHUY Amaya 01/29/242101 documented in this encounterLakeHealth [facility] SystemEvaluation note* Diagnosis Well woman exam with routine gynecological exam Routine gynecological examination Skin yeast infection Candidiasis of skin and nails documented in this encounter [facility] HealthcareEvaluation [facility]* Diagnosis LGSIL of cervix of undetermined significance documented in this encounter [facility] HealthcareEvaluation [facility]* Diagnosis Wellness examination- Primary Insomnia, unspecified type Skin candidiasis Candidiasis of skin and nails documented in this encounter [facility]* Diagnosis Persistent depressive disorder documented in this encounter [facility]* Diagnosis Persistent depressive disorder documented in this [facility]* Diagnosis Weight gain- Primary Other symptoms concerning nutrition, metabolism, and development BMI 33.0-33.9,adult Family history of diabetes mellitus Encounter for lipid screening for cardiovascular disease Medication management Acute leg pain, left Muscle cramps documented in this encounter [facility]* Diagnosis Class 3 severe obesity without serious comorbidity in adult, unspecified BMI, unspecified obesity type ([facility])- Primary Encounter for weight management documented in this encounter [facility]* Diagnosis Family history of systemic lupus erythematosus (SLE) in mother- Primary Persistent depressive disorder Fatigue, unspecified type Arthralgia of multiple joints Pain in joint, multiple sites documented in this encounter [facility]* Diagnosis Skin irritation- Primary Unspecified disorder of skin and subcutaneous tissue documented in this encounter [facility]* Diagnosis Skin irritation- Primary Unspecified disorder of skin and subcutaneous tissue Family history of systemic lupus erythematosus (SLE) in mother Persistent depressive disorder Fatigue, unspecified type Arthralgia of multiple joints Pain in joint, multiple sites documented in this encounter [facility]* Diagnosis Family history of systemic lupus erythematosus (SLE) in mother- Primary Encounter for female control Contact dermatitis, unspecified contact dermatitis type, unspecified trigger documented in this encounter [facility]* Diagnosis Encounter for female control documented in this encounter [facility]* Diagnosis Persistent depressive disorder documented in this encounter [facility]* Diagnosis Encounter for other contraceptive management- Primary documented in this encounter [facility]* Diagnosis Insomnia, unspecified type- Primary Persistent depressive disorder Dry skin Other symptoms involving skin and integumentary tissues Skin candidiasis Candidiasis of skin and nails documented in this encounter [facility]* Diagnosis Persistent depressive disorder [facility] Diagnosis Wellness examination Skin candidiasis Candidiasis of skin and nails Insomnia, unspecified type documented in this [facility]* Diagnosis Herpes zoster without complication documented in this [facility]* Diagnosis LGSIL of cervix of undetermined significance Well woman exam with routine gynecological exam Routine gynecological examination documented in this encounter [facility] HealthcareEvaluation note* Diagnosis Moderate episode of recurrent major depressive disorder ([facility])- Primary Anxiety Anxiety state, unspecified Encounter for other contraceptive management Persistent depressive disorder Vitamin D deficiency documented in this encounter [facility] SystemInstructions* Attachments The following attachments cannot be sent through Care Everywhere. * Diabetes Exchange Diet (Gabonese) documented in this encounterProThomasville [facility] SystemInstructionsNot on file documented in this encounterProThomasville [facility] Center [employer] SystemInstructionsNot on file documented in this encounterLakeHealth [facility] SystemInstructionsNot on file documented in this encounterLakeHealth [facility] SystemInstructions* Attachments The following attachments cannot be sent through Care Everywhere. * Topiramate, ADULT (Gabonese) * Phentermine, ADULT (Gabonese) * Naltrexone and Bupropion, ADULT (Gabonese) documented in this encounterProThomasville [facility] Center Health SystemInstructionsNot on file documented in this encounterProThomasville [facility] [employer] SystemInstructionsNot on file documented in this encounterProThomasville [facility] [employer] SystemInstructionsNot on file documented in this encounterProThomasville [facility] [employer] SystemInstructionsNot on file documented in this encounterProThomasville [facility] [employer] SystemInstructionsNot on file documented in this encounterProThomasville [facility] [employer] SystemInstructionsNot on file documented in this encounterProThomasville Regional Medical Center [employer] SystemInstructionsNot on file documented in this encounterProThomasville Regional Medical Center [employer] SystemInstructionsNot on file documented in this encounterLakeHealth [facility]Point [facility] SystemInstructions* Attachments The following attachments cannot be sent through Care Everywhere. * Depression in adults Discharge instructions (Gabonese) documented in this encounterLakeHealth TriPoint Medical Center System Summary Purpose Family History No Family History Records FoundNo Family History Records FoundNo Family History Records FoundNo Family History Records FoundNo Family History Records Found Advance Directives No Advanced Directives Records FoundNo Advanced Directives Records FoundNo Advanced Directives Records FoundNo Advanced Directives Records FoundNo Advanced Directives Records Found Reason for Referral SpecialtyDiagnoses / ProceduresReferred By ContactReferred To Contact Diagnoses Encounter for female control Waterman, Eh, HEALTH SAFETY SPECIALIST-[employer] [address] [place] [address], [place] [address] Referral IDStatusReasonStart DateExpiration DateVisits RequestedVisits [id number] Review Additional Source Comments INFORMATION SOURCE (unrecogn ized section and content) DATE CREATED AUTHOR 04/14/2022 [facility] DATE CREATED AUTHOR AUTHOR'S ORGANIZ ATION 01/26/2024 [facility] DATE CREATED AUTHOR AUTHOR'S ORGANIZ ATION 02/25/[address] [facility] DATE CREATED AUTHOR AUTHOR'S ORGANIZ ATION 03/15/2025 [facility] DATE CREATED AUTHOR AUTHOR'S ORGANIZ ATION 07/05/2025 [facility] Care Teams (unrecognized sec tion and content) Team MemberRelationshipSpecialtyStart DateEnd Date Eh Waterman MD [address] [facility], [place] [address] [facility] Oykvcasv16/7/23Te MemberRelationshipSpecialtyStart DateEnd Date Eh Waterman MD [address] [facility], [place] [address] PCP - Generalmily Fqbroavz32/7/23Team MemberRelationshipSpecialtyStart DateEnd Date Eh Waterman MD [address] [facility], [place] [address] PCP - Generalmi Lfggwjlr68/7/23Team MemberRelationshipSpecialtyStart DateEnd Date Eh Waterman APRN-[employer] PCP - GeneralNurse Practitioner06/20/23Team MemberRelationshipSpecialtyStart Date End Date Eh Waterman APRN-[employer] [address] [place] [id number] PCP - GeneralNurse Practitioner06/20/23Team MemberRelationshipSpecialtyStart Date End Date Eh Waterman, HEALTH SAFETY SPECIALIST-[employer] PCP - GeneralNurse Practitioner06/20/23Team MemberRelationshipSpecialtyStart Date End Date Eh Waterman HEALTH SAFETY SPECIALIST-[employer]ER PCP - GeneralNurse Practitioner06/20/23Team MemberRelationshipSpecialtyStart Date End Date Eh Waterman HEALTH SAFETY SPECIALIST-[employer]ER PCP - GeneralNurse Practitioner06/20/23 MemberRelationshipSpecialtyStart Date End Date Eh Waterman, HEALTH SAFETY SPECIALIST-[employer] PCP - GeneralNurse Practitioner06/20/23Team MemberRelationshipSpecialtyStart Date End Date Eh Waterman HEALTH SAFETY SPECIALIST-[employer]ER PCP - GeneralNurse Practitioner06/20/23Team MemberRelationshipSpecialtyStart Date End Date Eh Waterman HEALTH SAFETY SPECIALIST-[employer]ER PCP - GeneralNurse Practitioner06/20/23Team MemberRelationshipSpecialtyStart Date End Date Eh Waterman APRN-[employer]ER PCP - GeneralNurse Practitioner06/20/23 MemberRelationshipSpecialtyStart Date End Date Eh Waterman APRN-[employer]ER PCP - GeneralNurse Practitioner06/20/23am MemberRelationshipSpecialtyStart Date End Date Eh Waterman APRN-[employer] PCP - GeneralNurse Practitioner06/20/23am MemberRelationshipSpecialtyStart Date End Date Demarco Eh HEALTH SAFETY SPECIALIST-[employer]ER PCP - GeneralNurse Practitioner06/20/23am MemberRelationshipSpecialtyStart Date End Date Eh Waterman APRN-[employer]ER PCP - GeneralNurse Practitioner06/20/23 MemberRelationshipSpecialtyStart Date End Date Demarco Eh HEALTH SAFETY SPECIALIST-[employer] [address] [place] [phone] PCP - GeneralFamily Medicine02/24/25Team MemberRelationshipSpecialtyStart DateEnd Date Waterman Eh HEALTH SAFETY SPECIALIST[employer] [address] [place] [phone] PCP - GeneralFamily Medicine02/24/25Team MemberRelationshipSpecialtyStart DateEnd Date Eh Waterman MD [address], [place], [place] [phone] [facility] - [facility]07/31/23[facility] MemberRelationshipSpecialtyStart DateEnd Date Eh Waterman MD [address] [facility], [place], [place] [id number] PCP - [facility]07/31/23[facility] MemberRelationshipSpecialtyStart DateEnd Date Eh Waterman MD [address] [facility], [place], [place] [phone] PCP - [facility]07/31/23[facility] MemberRelationshipSpecialtyStart DateEnd Date Eh Waterman, HEALTH SAFETY SPECIALIST[employer]ER [address] [place], [place] [phone] PCP - Generalmi Medicine02/24/25 Reason for Visit (unrecogniz ed section and content) ReasonCommentsWell Women VisitReasonCommentsWellnessReasonCommentsMed Refill ReasonCommentsFollow-up6 month follow upObesityAnxietyDepressionReasonComments ResultsLabsReasonCommentsAnxietyReasonCommentsFollow-upHeadaches and sleepReason CommentsMed RefillReasonOnset [id number]/13/2025ReasonCommentsRepeat PapReasonCommentsDepressionAnxiety FOR RECORDS PERTAINING TO PATIENTS WHO ARE [...] BE BASED ON THE PRIMARY CLINICAL RECORDS. [facility] [employer] [facility]. provides no warranty or guarantee of the accuracy or completeness of information in this document.
== END 2025-08-11 20:10 | disposition home or self-care (01) ==
LOC: LAB 20:09
PROVIDERS: Visit Provider Obstetrics & Gynecology
DX: Z01.419 Encounter for gynecological examination (general) (routine) without abnormal findings (principal)
CPT/HCPCS: 87624; 88175